=== PATIENT | female | born 1945 | race Caucasian/White ===

== ENCOUNTER 2017-06-30 14:05 | Inpatient (IN) ==
[2017-06-30 15:42] LABS: Basophils # 0.1 10*3/uL (0.0-0.2); Basophils % 0.7 % (0.0-0.8); Eosinophils # 0.4 10*3/uL (0.0-0.87); Eosinophils % 4.1 % (0.00-10.9); Hematocrit 26.5 VOL% (35.7-47.0); Hemoglobin 9.1 GM/DL (12.0-16.0); Immature Granulocytes % 0.5 %; Immature Granulocytes Absolute 0.05 #; Lymphocytes # 0.7 10*3/uL (1.4-4.0); Lymphocytes % 6.5 % (21.3-54.2); Mean Corpuscular HGB Conc 34.3 GM/DL (32-36); Mean Corpuscular Hemoglobin 32 PG (27-34); Mean Corpuscular Volume 91.7 FL (87-102); Mean Platelet Volume 11.2 FL (9.6-12.0); Monocytes # 0.8 10*3/uL (0.11-0.8); Monocytes % 7.5 % (1.7-12.7); Neutrophils # 8.2 10*3/uL (1.4-7.4); Neutrophils % 80.7 % (38.7-73.9); Platelet Count 257 T/CUMM (130-400); Red Blood Count 2.89 MC/CUMM (3.8-5.5); Red Cell Distribution Width 14.9 % (9.3-17.3); White Blood Count 10.1 T/CUMM (4-12)
[2017-06-30 15:50] LABS: INR 2.2
[2017-06-30 15:55] LABS: PT Patient Result 22.7 SECS
[2017-06-30 16:30] LABS: Albumin 3.9 G/DL (3.4-5.0); Bilirubin,Total 0.4 MG/DL (0.2-1.0); Calcium 8.5 MG/DL (8.5-10.1); Osmolality,Calculated 340.1 MOS/KG (273-304); Total Protein 7.3 G/DL (6.4-8.3)
[2017-06-30] MEDS ORDERED: SODIUM CHLORIDE 0.9% 1,000 ML IV STA (16:37)
[2017-06-30] MEDS ORDERED: ONDANSETRON 4 MG/2 ML VIAL IV PRN (17:54)
[2017-06-30] MEDS ORDERED: SODIUM CHLORIDE 0.9% 1,000 ML IV SCH (18:30)
[2017-06-30] MEDS: ACETAMINOPHEN 325 MG TABLET PO PRN (21:09)
[2017-06-30] MEDS: SODIUM POLYSTYRENE SULFATE 15 GM/60 ML BOTTLE PO SCH (21:28)
[2017-06-30] MEDS: TIMOLOL 0.5% OPH SOLN 5 ML BOTTLE BOTH EYES SCH (22:50)
[2017-06-30] MEDS ORDERED: SODIUM BICARBONATE 650 MG TABLET PO ONE (23:00)
[2017-06-30] MEDS: PREGABALIN 25 MG CAPSULE PO SCH (23:10)
[2017-06-30] MEDS: INSULIN REGULAR 100 UNIT/ML SUBCUT SCH (23:34)
[2017-07-01] MEDS: ACETAMINOPHEN 325 MG TABLET PO PRN (01:26)
[2017-07-01] MEDS: SODIUM POLYSTYRENE SULFATE 15 GM/60 ML BOTTLE PO SCH ×3 (03:10→18:46)
[2017-07-01 04:40] LABS: INR 2.3
[2017-07-01 04:45] LABS: PT Patient Result 23.1 SECS
[2017-07-01 05:16] LABS: Albumin 3.4 G/DL (3.4-5.0); Bilirubin,Total 0.8 MG/DL (0.2-1.0); Calcium 8.3 MG/DL (8.5-10.1); Magnesium 3.3 MG/DL (1.8-2.4); Osmolality,Calculated 334.3 MOS/KG (273-304); Potassium 5.7 MMOL/L (3.5-5.1); Thyroid Stimulating Hormone 7.53 uIU/ml (0.358-3.74); Total Protein 6.3 G/DL (6.4-8.3)
[2017-07-01] MEDS: LEVOTHYROXINE 200 MCG TABLET PO SCH (06:13)
[2017-07-01] MEDS ORDERED: FUROSEMIDE 40 MG TABLET PO SCH (08:00)
[2017-07-01] MEDS: INSULIN REGULAR 100 UNIT/ML SUBCUT SCH ×4 (08:23→21:40)
[2017-07-01] MEDS: ALLOPURINOL 300 MG TABLET PO SCH (08:45)
[2017-07-01] MEDS: ATORVASTATIN 40 MG TABLET PO SCH (08:46)
[2017-07-01] MEDS: PREGABALIN 25 MG CAPSULE PO SCH ×2 (08:47→21:40)
[2017-07-01] MEDS: SODIUM BICARBONATE 650 MG TABLET PO SCH ×3 (08:48→21:40)
[2017-07-01] MEDS: ASPIRIN EC 81 MG TABLET PO SCH (08:48)
[2017-07-01] MEDS: amLODIPine 5 MG TABLET PO SCH (08:49)
[2017-07-01] MEDS ORDERED: ZINC OXIDE PASTE 113 GM TUBE TOP PRN (15:08)
[2017-07-01] MEDS: FUROSEMIDE 40 MG/4 ML VIAL IV SCH (16:53)
[2017-07-01] MEDS: WARFARIN 3 MG TABLET PO SCH (18:20)
[2017-07-01] MEDS: TIMOLOL 0.5% OPH SOLN 5 ML BOTTLE BOTH EYES SCH (21:40)
[2017-07-02 04:26] LABS: Basophils # 0.1 10*3/uL (0.0-0.2); Basophils % 0.7 % (0.0-0.8); Eosinophils # 0.5 10*3/uL (0.0-0.87); Eosinophils % 5.2 % (0.00-10.9); Hematocrit 24.2 VOL% (35.7-47.0); Hemoglobin 8.3 GM/DL (12.0-16.0); Immature Granulocytes % 0.3 %; Immature Granulocytes Absolute 0.03 #; Lymphocytes # 0.9 10*3/uL (1.4-4.0); Lymphocytes % 9.9 % (21.3-54.2); Mean Corpuscular HGB Conc 34.3 GM/DL (32-36); Mean Corpuscular Hemoglobin 31 PG (27-34); Mean Corpuscular Volume 91.7 FL (87-102); Mean Platelet Volume 11.6 FL (9.6-12.0); Monocytes # 1.2 10*3/uL (0.11-0.8); Monocytes % 13.5 % (1.7-12.7); Neutrophils # 6.2 10*3/uL (1.4-7.4); Neutrophils % 70.4 % (38.7-73.9); Platelet Count 238 T/CUMM (130-400); Red Blood Count 2.64 MC/CUMM (3.8-5.5); Red Cell Distribution Width 15.1 % (9.3-17.3); White Blood Count 8.8 T/CUMM (4-12)
[2017-07-02 05:03] LABS: Calcium 8.3 MG/DL (8.5-10.1); Potassium 5.3 MMOL/L (3.5-5.1)
[2017-07-02] MEDS: LEVOTHYROXINE 200 MCG TABLET PO SCH (07:12)
[2017-07-02] MEDS: INSULIN REGULAR 100 UNIT/ML SUBCUT SCH ×4 (08:59→21:56)
[2017-07-02] MEDS: FUROSEMIDE 40 MG/4 ML VIAL IV SCH ×2 (09:17→17:51)
[2017-07-02] MEDS: SODIUM BICARBONATE 650 MG TABLET PO SCH ×3 (09:23→21:56)
[2017-07-02] MEDS: PREGABALIN 25 MG CAPSULE PO SCH ×2 (09:24→21:56)
[2017-07-02] MEDS: ALLOPURINOL 300 MG TABLET PO SCH (09:24)
[2017-07-02] MEDS: amLODIPine 5 MG TABLET PO SCH (09:25)
[2017-07-02] MEDS: ATORVASTATIN 40 MG TABLET PO SCH (09:26)
[2017-07-02] MEDS: ASPIRIN EC 81 MG TABLET PO SCH (09:26)
[2017-07-02] MEDS: WARFARIN 3 MG TABLET PO SCH (17:44)
[2017-07-02] MEDS: TIMOLOL 0.5% OPH SOLN 5 ML BOTTLE BOTH EYES SCH (21:55)
[2017-07-03 06:31] LABS: Basophils # 0.1 10*3/uL (0.0-0.2); Basophils % 0.7 % (0.0-0.8); Eosinophils # 0.6 10*3/uL (0.0-0.87); Eosinophils % 6.2 % (0.00-10.9); Hematocrit 24.5 VOL% (35.7-47.0); Hemoglobin 8.3 GM/DL (12.0-16.0); Immature Granulocytes % 0.4 %; Immature Granulocytes Absolute 0.04 #; Lymphocytes # 0.9 10*3/uL (1.4-4.0); Mean Corpuscular HGB Conc 33.9 GM/DL (32-36); Mean Corpuscular Hemoglobin 31 PG (27-34); Mean Corpuscular Volume 92.1 FL (87-102); Mean Platelet Volume 11.5 FL (9.6-12.0); Monocytes # 1.2 10*3/uL (0.11-0.8); Monocytes % 13.4 % (1.7-12.7); Neutrophils # 6.2 10*3/uL (1.4-7.4); Neutrophils % 69.3 % (38.7-73.9); Platelet Count 244 T/CUMM (130-400); Red Blood Count 2.66 MC/CUMM (3.8-5.5); Red Cell Distribution Width 15.1 % (9.3-17.3)
[2017-07-03] MEDS: LEVOTHYROXINE 200 MCG TABLET PO SCH (06:32)
[2017-07-03 06:51] LABS: Calcium 8.6 MG/DL (8.5-10.1); INR 1.8; PT Patient Result 18.6 SECS; Potassium 5.2 MMOL/L (3.5-5.1)
[2017-07-03] MEDS: ASPIRIN EC 81 MG TABLET PO SCH (08:26)
[2017-07-03] MEDS: ALLOPURINOL 300 MG TABLET PO SCH (08:26)
[2017-07-03] MEDS: PREGABALIN 25 MG CAPSULE PO SCH ×2 (08:26→21:07)
[2017-07-03] MEDS: SODIUM BICARBONATE 650 MG TABLET PO SCH ×3 (08:26→21:06)
[2017-07-03] MEDS: amLODIPine 5 MG TABLET PO SCH (08:26)
[2017-07-03] MEDS: ATORVASTATIN 40 MG TABLET PO SCH (08:26)
[2017-07-03] MEDS: INSULIN REGULAR 100 UNIT/ML SUBCUT SCH ×4 (08:27→21:07)
[2017-07-03] MEDS: FUROSEMIDE 40 MG/4 ML VIAL IV SCH ×2 (08:28→17:24)
[2017-07-03 11:04] LABS: Basophils # 0.1 10*3/uL (0.0-0.2); Basophils % 0.9 % (0.0-0.8); Eosinophils # 0.5 10*3/uL (0.0-0.87); Eosinophils % 5.9 % (0.00-10.9); Hematocrit 23.5 VOL% (35.7-47.0); Hemoglobin 7.9 GM/DL (12.0-16.0); Immature Granulocytes % 0.5 %; Immature Granulocytes Absolute 0.04 #; Lymphocytes # 0.7 10*3/uL (1.4-4.0); Lymphocytes % 7.7 % (21.3-54.2); Mean Corpuscular HGB Conc 33.6 GM/DL (32-36); Mean Corpuscular Hemoglobin 32 PG (27-34); Mean Corpuscular Volume 94.4 FL (87-102); Monocytes # 1.2 10*3/uL (0.11-0.8); Monocytes % 13.4 % (1.7-12.7); Neutrophils # 6.3 10*3/uL (1.4-7.4); Neutrophils % 71.6 % (38.7-73.9); Platelet Count 231 T/CUMM (130-400); Red Blood Count 2.49 MC/CUMM (3.8-5.5); Red Cell Distribution Width 15.2 % (9.3-17.3); White Blood Count 8.8 T/CUMM (4-12)
[2017-07-03] MEDS ORDERED: SODIUM POLYSTYRENE SULFATE 15 GM/60 ML BOTTLE PO STA (11:18)
[2017-07-03 12:05] LABS: Folate 11.7 NG/ML (5.4-24.0); Vitamin B12 629 PG/ML (211-911)
[2017-07-03 13:33] LABS: Sedimentation Rate-Westergren 90 MM/HR (0-30)
[2017-07-03] MEDS: WARFARIN 3 MG TABLET PO SCH (17:30)
[2017-07-03] MEDS: TIMOLOL 0.5% OPH SOLN 5 ML BOTTLE BOTH EYES SCH (21:07)
[2017-07-04 04:43] LABS: Basophils # 0.1 10*3/uL (0.0-0.2); Eosinophils # 0.6 10*3/uL (0.0-0.87); Eosinophils % 6.9 % (0.00-10.9); Hematocrit 26.1 VOL% (35.7-47.0); Hemoglobin 8.8 GM/DL (12.0-16.0); Immature Granulocytes % 0.4 %; Immature Granulocytes Absolute 0.04 #; Lymphocytes # 0.9 10*3/uL (1.4-4.0); Lymphocytes % 9.5 % (21.3-54.2); Mean Corpuscular HGB Conc 33.7 GM/DL (32-36); Mean Corpuscular Hemoglobin 32 PG (27-34); Mean Corpuscular Volume 93.5 FL (87-102); Mean Platelet Volume 11.5 FL (9.6-12.0); Monocytes # 1.3 10*3/uL (0.11-0.8); Monocytes % 13.8 % (1.7-12.7); Neutrophils # 6.3 10*3/uL (1.4-7.4); Neutrophils % 68.4 % (38.7-73.9); Platelet Count 242 T/CUMM (130-400); Red Blood Count 2.79 MC/CUMM (3.8-5.5); Red Cell Distribution Width 15.2 % (9.3-17.3); White Blood Count 9.3 T/CUMM (4-12)
[2017-07-04 04:46] LABS: INR 1.7; PT Patient Result 17.9 SECS
[2017-07-04 05:08] LABS: Calcium 8.8 MG/DL (8.5-10.1); Magnesium 2.8 MG/DL (1.8-2.4); Osmolality,Calculated 323.7 MOS/KG (273-304); Potassium 5.1 MMOL/L (3.5-5.1)
[2017-07-04] MEDS: LEVOTHYROXINE 200 MCG TABLET PO SCH (06:46)
[2017-07-04] MEDS: INSULIN REGULAR 100 UNIT/ML SUBCUT SCH ×2 (09:52→13:53)
[2017-07-04] MEDS: FUROSEMIDE 40 MG/4 ML VIAL IV SCH (09:52)
[2017-07-04] MEDS: amLODIPine 5 MG TABLET PO SCH (09:53)
[2017-07-04] MEDS: ASPIRIN EC 81 MG TABLET PO SCH (09:53)
[2017-07-04] MEDS: ALLOPURINOL 300 MG TABLET PO SCH (09:53)
[2017-07-04] MEDS: ATORVASTATIN 40 MG TABLET PO SCH (09:53)
[2017-07-04] MEDS: PREGABALIN 25 MG CAPSULE PO SCH (09:53)
[2017-07-04] MEDS: SODIUM BICARBONATE 650 MG TABLET PO SCH (09:53)
[2017-07-04 12:25] VITALS: BP 120/43
[2017-07-06 08:09] LABS: Hemoglobin A1 (Alkaline) 97.6 % (96.5-98.5); Hemoglobin A2 (Alkaline) 2.4 % (1.5-3.5)
== END 2017-07-04 15:39 | disposition home health service (06) | DRG 641 ==
LOC: N.ED 14:05 → SUATTDRO 16:45 → N.EDINP 16:45 → N.3E 18:22
PROVIDERS: ADMIT Internal Medicine; ATTEND Internal Medicine

== ENCOUNTER 2017-08-01 07:45 | Inpatient (IN) ==
[2017-08-01] MEDS ORDERED: DEXTROSE 50% 25 GM/50 ML VIAL IV PRN (13:05)
[2017-08-01] MEDS ORDERED: GLUCAGON 1 MG VIAL IM PRN (13:05)
[2017-08-01 13:47] LABS: Basophils # 0.1 10*3/uL (0.0-0.2); Basophils % 0.4 % (0.0-0.8); Eosinophils # 0.1 10*3/uL (0.0-0.87); Eosinophils % 0.8 % (0.00-10.9); Hematocrit 24.5 VOL% (35.7-47.0); Immature Granulocytes % 1.4 %; Immature Granulocytes Absolute 0.23 #; Lymphocytes # 0.6 10*3/uL (1.4-4.0); Lymphocytes % 3.7 % (21.3-54.2); Mean Corpuscular HGB Conc 32.7 GM/DL (32-36); Mean Corpuscular Hemoglobin 30 PG (27-34); Mean Corpuscular Volume 92.5 FL (87-102); Monocytes # 1.6 10*3/uL (0.11-0.8); Monocytes % 9.5 % (1.7-12.7); NRBC # 0.02 10*3/uL; Neutrophils # 14.2 10*3/uL (1.4-7.4); Neutrophils % 84.2 % (38.7-73.9); Platelet Count 360 T/CUMM (130-400); Red Blood Count 2.65 MC/CUMM (3.8-5.5); Red Cell Distribution Width 14.5 % (9.3-17.3); White Blood Count 16.8 T/CUMM (4-12)
[2017-08-01 14:31] LABS: Eosinophils 2 % (0-10); Lymphocytes 2 % (20-55); Platelet Estimate Normal; Segmented Neutrophils 91 % (50-85); Total Cells Counted 100
[2017-08-01 14:32] LABS: Burr Cells Few; Hypochromasia Slight; Poikilocytosis Slight; Tear Drop Cells Few
[2017-08-01 14:35] LABS: Albumin 3.3 G/DL (3.4-5.0); Bilirubin,Total 0.5 MG/DL (0.2-1.0); Calcium 8.4 MG/DL (8.5-10.1); Osmolality,Calculated 303.1 MOS/KG (273-304); Potassium 4.8 MMOL/L (3.5-5.1); Thyroid Stimulating Hormone 5.55 uIU/ml (0.358-3.74); Total Protein 6.9 G/DL (6.4-8.3)
[2017-08-01 16:47] LABS: Apearance,Urine CLOUDY (Clear); Bacteria,Urine Many /HPF (Few); Bilirubin,Urine Negative (Negative); Blood, Urine Small mg/dL (Negative); Glucose,Urine (UA) Negative (Negative); Hyaline Casts,Urine 33 /LPF (0-3); Ketones,Urine Negative (Negative); Mucus,Urine Occasional /LPF (Occasional); Nitrite,Urine Negative (Negative); Protein,Urine Negative; RBC,Urine 13 /HPF (0-4); Squamous Epithelial Cell,Urine Many /HPF (0-10); Urine Color Amber (Yellow); Urine Specific Gravity 1.014 (1.001-1.035); WBC,Urine 46 /HPF (0-6)
[2017-08-01] MEDS: CEFEPIME 1,000 MG in SYRINGE 1 EACH IV SCH (17:24)
[2017-08-01] MEDS: LINEZOLID INJ 600 MG in PREMIX 1 EACH IV SCH (17:29)
[2017-08-01] MEDS: FUROSEMIDE 40 MG/4 ML VIAL IV SCH (18:23)
[2017-08-01] MEDS: INSULIN LISPRO 100 UNIT/ML SUBCUT SCH ×2 (18:23→20:49)
[2017-08-01] MEDS: ACETAMINOPHEN 325 MG TABLET PO PRN (20:40)
[2017-08-01] MEDS: metOLazone 5 MG TABLET PO SCH (20:40)
[2017-08-02] MEDS: FUROSEMIDE 40 MG/4 ML VIAL IV SCH ×4 (01:20→17:30)
[2017-08-02] MEDS: ONDANSETRON 4 MG/2 ML VIAL IV PRN (02:35)
[2017-08-02] MEDS: ACETAMINOPHEN 325 MG TABLET PO PRN ×4 (05:25→23:03)
[2017-08-02 06:05] LABS: Basophils # 0.1 10*3/uL (0.0-0.2); Basophils % 0.4 % (0.0-0.8); Eosinophils # 0.2 10*3/uL (0.0-0.87); Hemoglobin 8.6 GM/DL (12.0-16.0); Immature Granulocytes Absolute 0.18 #; Lymphocytes # 0.9 10*3/uL (1.4-4.0); Lymphocytes % 4.6 % (21.3-54.2); Mean Corpuscular HGB Conc 34.4 GM/DL (32-36); Mean Corpuscular Hemoglobin 31 PG (27-34); Mean Corpuscular Volume 89.9 FL (87-102); Mean Platelet Volume 11.2 FL (9.6-12.0); Monocytes # 2.1 10*3/uL (0.11-0.8); Monocytes % 11.1 % (1.7-12.7); NRBC # 0.04 10*3/uL; Neutrophils # 15.2 10*3/uL (1.4-7.4); Neutrophils % 81.9 % (38.7-73.9); Platelet Count 382 T/CUMM (130-400); Red Blood Count 2.78 MC/CUMM (3.8-5.5); Red Cell Distribution Width 14.5 % (9.3-17.3); White Blood Count 18.5 T/CUMM (4-12)
[2017-08-02 06:39] LABS: Calcium 8.6 MG/DL (8.5-10.1); Osmolality,Calculated 300.7 MOS/KG (273-304); Potassium 5.1 MMOL/L (3.5-5.1)
[2017-08-02] MEDS: LINEZOLID INJ 600 MG in PREMIX 1 EACH IV SCH ×2 (06:40→17:40)
[2017-08-02] MEDS: INSULIN LISPRO 100 UNIT/ML SUBCUT SCH ×4 (07:45→20:43)
[2017-08-02] MEDS: metOLazone 5 MG TABLET PO SCH ×2 (10:18→20:43)
[2017-08-02 11:38] LABS: Amorphous Crystals,Urine Moderate /HPF (Few); Apearance,Urine CLOUDY (Clear); Bacteria,Urine Many /HPF (Few); Bilirubin,Urine Negative (Negative); Blood, Urine Moderate mg/dL (Negative); Glucose,Urine (UA) 150 mg/dL (Negative); Hyaline Casts,Urine 26 /LPF (0-3); Ketones,Urine 5 mg/dL (Negative); Mucus,Urine Occasional /LPF (Occasional); Nitrite,Urine Negative (Negative); Protein,Urine >=500 MG/DL; Urine Color Amber (Yellow); Urine Specific Gravity 1.017 (1.001-1.035); Urine Urobilinogen < 2.0 EU/DL (0.2-1.0)
[2017-08-02] MEDS: PREGABALIN 25 MG CAPSULE PO SCH ×2 (12:10→20:43)
[2017-08-02] MEDS: HEPARIN 5,000 UNIT/1 ML VIAL SUBCUT SCH ×2 (12:10→17:41)
[2017-08-02] MEDS: SODIUM CHLORIDE 0.9% 1,000 ML IV SCH ×2 (12:10→22:49)
[2017-08-02] MEDS: CEFEPIME 1,000 MG in SYRINGE 1 EACH IV SCH (17:19)
[2017-08-02] MEDS: OXYBUTYNIN 5 MG TABLET PO SCH (20:43)
[2017-08-03] MEDS: FUROSEMIDE 40 MG/4 ML VIAL IV SCH ×5 (00:43→22:22)
[2017-08-03] MEDS: HEPARIN 5,000 UNIT/1 ML VIAL SUBCUT SCH ×3 (02:35→22:17)
[2017-08-03] MEDS ORDERED: MAGNESIUM HYDROXIDE SUSP 30 ML UDCUP PO PRN (04:55)
[2017-08-03] MEDS: LINEZOLID INJ 600 MG in PREMIX 1 EACH IV SCH ×2 (05:16→18:41)
[2017-08-03 05:28] LABS: Basophils % 0.1 % (0.0-0.8); Eosinophils % 0.1 % (0.00-10.9); Hematocrit 24.7 VOL% (35.7-47.0); Hemoglobin 8.5 GM/DL (12.0-16.0); Immature Granulocytes % 1.6 %; Immature Granulocytes Absolute 0.32 #; Lymphocytes # 0.6 10*3/uL (1.4-4.0); Lymphocytes % 3.1 % (21.3-54.2); Mean Corpuscular HGB Conc 34.4 GM/DL (32-36); Mean Corpuscular Hemoglobin 31 PG (27-34); Mean Corpuscular Volume 89.5 FL (87-102); Mean Platelet Volume 11.4 FL (9.6-12.0); Monocytes # 1.8 10*3/uL (0.11-0.8); Monocytes % 8.5 % (1.7-12.7); NRBC # 0.06 10*3/uL; Neutrophils # 17.8 10*3/uL (1.4-7.4); Neutrophils % 86.6 % (38.7-73.9); Platelet Count 341 T/CUMM (130-400); Red Blood Count 2.76 MC/CUMM (3.8-5.5); Red Cell Distribution Width 14.8 % (9.3-17.3); White Blood Count 20.6 T/CUMM (4-12)
[2017-08-03 06:03] LABS: Calcium 8.3 MG/DL (8.5-10.1); Osmolality,Calculated 309.8 MOS/KG (273-304); Potassium 5.7 MMOL/L (3.5-5.1)
[2017-08-03 06:05] LABS: Calcium 8.1 MG/DL (8.5-10.1); Osmolality,Calculated 302.1 MOS/KG (273-304); Potassium 5.9 MMOL/L (3.5-5.1)
[2017-08-03 06:43] LABS: Band Neutrophils 3 % (0-10); Lymphocytes 9 % (20-55); Segmented Neutrophils 83 % (50-85); Total Cells Counted 100
[2017-08-03 06:44] LABS: Burr Cells 1+; Platelet Estimate Normal
[2017-08-03] MEDS ORDERED: NYSTATIN POWDER 15 GM BOTTLE TOP SCH (09:00)
[2017-08-03] MEDS: SODIUM BICARB INJ 150 MEQ in STERILE WATER INJ 1,000 ML IV SCH (10:11)
[2017-08-03] MEDS: PREGABALIN 25 MG CAPSULE PO SCH ×2 (10:16→22:34)
[2017-08-03] MEDS: SIMETHICONE CHEW 80 MG TABLET PO PRN ×2 (10:17→17:05)
[2017-08-03] MEDS: INSULIN LISPRO 100 UNIT/ML SUBCUT SCH ×4 (10:18→22:18)
[2017-08-03] MEDS: OXYBUTYNIN 5 MG TABLET PO SCH ×2 (10:19→22:15)
[2017-08-03] MEDS: metOLazone 5 MG TABLET PO SCH (10:23)
[2017-08-03] MEDS: ONDANSETRON 4 MG/2 ML VIAL IV PRN (12:51)
[2017-08-03] MEDS: SODIUM CHLORIDE 0.9% 1,000 ML IV SCH (13:38)
[2017-08-03] MEDS: CLOTRIMAZOLE/BETAMETHASONE CREAM 15 GM TUBE TOP SCH ×2 (15:25→22:29)
[2017-08-03] MEDS: ALPRAZolam 0.25 MG TABLET PO SCH (15:26)
[2017-08-03] MEDS: ACETAMINOPHEN 325 MG TABLET PO PRN (17:05)
[2017-08-03] MEDS ORDERED: SODIUM POLYSTYRENE SULFATE 15 GM/60 ML BOTTLE PO ONE (18:22)
[2017-08-03] MEDS: CEFEPIME 1,000 MG in SYRINGE 1 EACH IV SCH (18:42)
[2017-08-03] MEDS ORDERED: FUROSEMIDE 100 MG/10 ML VIAL ONE (21:47)
[2017-08-04] MEDS: ACETAMINOPHEN 325 MG TABLET PO PRN
[2017-08-04] MEDS: SODIUM BICARB INJ 150 MEQ in STERILE WATER INJ 1,000 ML IV SCH (02:19)
[2017-08-04] MEDS: HEPARIN 5,000 UNIT/1 ML VIAL SUBCUT SCH ×3 (03:53→19:55)
[2017-08-04 05:12] LABS: Basophils % 0.1 % (0.0-0.8); Hematocrit 24.4 VOL% (35.7-47.0); Hemoglobin 7.9 GM/DL (12.0-16.0); Immature Granulocytes % 1.6 %; Immature Granulocytes Absolute 0.32 #; Lymphocytes # 0.5 10*3/uL (1.4-4.0); Lymphocytes % 2.3 % (21.3-54.2); Mean Corpuscular HGB Conc 32.4 GM/DL (32-36); Mean Corpuscular Hemoglobin 30 PG (27-34); Mean Corpuscular Volume 92.1 FL (87-102); Mean Platelet Volume 11.3 FL (9.6-12.0); Monocytes # 1.4 10*3/uL (0.11-0.8); Monocytes % 6.8 % (1.7-12.7); NRBC # 0.13 10*3/uL; Neutrophils # 18.3 10*3/uL (1.4-7.4); Neutrophils % 89.2 % (38.7-73.9); Platelet Count 335 T/CUMM (130-400); Red Blood Count 2.65 MC/CUMM (3.8-5.5); Red Cell Distribution Width 14.7 % (9.3-17.3); White Blood Count 20.5 T/CUMM (4-12)
[2017-08-04 05:39] LABS: Calcium 7.7 MG/DL (8.5-10.1); Osmolality,Calculated 312.9 MOS/KG (273-304); Potassium 5.5 MMOL/L (3.5-5.1)
[2017-08-04 05:43] LABS: Band Neutrophils 2 % (0-10); Lymphocytes 1 % (20-55); Myelocytes 2 %; Segmented Neutrophils 94 % (50-85); Total Cells Counted 100
[2017-08-04 05:44] LABS: Acanthocytes Few; Anisocytosis 1+; Hypochromasia 1+; Platelet Estimate Normal
[2017-08-04] MEDS: LINEZOLID INJ 600 MG in PREMIX 1 EACH IV SCH ×2 (06:23→19:44)
[2017-08-04] MEDS: INSULIN LISPRO 100 UNIT/ML SUBCUT SCH ×4 (09:25→22:09)
[2017-08-04] MEDS: OXYBUTYNIN 5 MG TABLET PO SCH ×2 (09:27→22:08)
[2017-08-04] MEDS: ALPRAZolam 0.25 MG TABLET PO SCH (09:28)
[2017-08-04] MEDS: PREGABALIN 25 MG CAPSULE PO SCH ×2 (09:28→22:08)
[2017-08-04] MEDS: CLOTRIMAZOLE/BETAMETHASONE CREAM 15 GM TUBE TOP SCH ×2 (09:28→23:34)
[2017-08-04] MEDS: metOLazone 5 MG TABLET PO SCH (09:30)
[2017-08-04] MEDS: FUROSEMIDE 40 MG/4 ML VIAL IV SCH ×3 (09:36→21:38)
[2017-08-04] MEDS ORDERED: ceFAZolin 1,000 MG in SYRINGE 1 EACH IV ONE (10:30)
[2017-08-04 13:51] LABS: Hepatitis A Ab IgM Quant 0.14 Index; Hepatitis A Ab IgM Result Negative (Negative); Hepatitis B Core IgM Quant 0.11 Index; Hepatitis B Core IgM Result Negative (Negative); Hepatitis B Surface Ag Quant 0.13 Index; Hepatitis B Surface Ag Result Negative (Negative); Hepatitis C Virus Ab Quant 0.15 Index; Hepatitis C Virus Ab Result Negative (Negative)
[2017-08-04] MEDS: MEROPENEM 500 MG in SYRINGE 1 EACH IV SCH (16:47)
[2017-08-04] MEDS ORDERED: ceFAZolin 1,000 MG VIAL ONE (17:43)
[2017-08-04] MEDS ORDERED: fentaNYL 100 MCG/2 ML VIAL ONE (17:59)
[2017-08-04] MEDS ORDERED: MIDAZOLAM 2 MG/2 ML VIAL ONE (17:59)
[2017-08-04] MEDS ORDERED: SODIUM CHLORIDE 0.9% 250 ML IV ONE (18:20)
[2017-08-04] MEDS ORDERED: FUROSEMIDE 100 MG/10 ML VIAL IV SCH (21:45)
[2017-08-05] MEDS: ACETAMINOPHEN 325 MG TABLET PO PRN (01:13)
[2017-08-05] MEDS ORDERED: MORPHINE 2 MG/1 ML SYRINGE IV PRN (02:06)
[2017-08-05] MEDS ORDERED: MORPHINE 2 MG/1 ML SYRINGE ONE (02:09)
[2017-08-05] MEDS: HEPARIN 5,000 UNIT/1 ML VIAL SUBCUT SCH ×3 (03:05→18:22)
[2017-08-05 04:44] LABS: Basophils % 0.1 % (0.0-0.8); Eosinophils # 0.1 10*3/uL (0.0-0.87); Eosinophils % 0.3 % (0.00-10.9); Hematocrit 25.2 VOL% (35.7-47.0); Immature Granulocytes % 1.5 %; Immature Granulocytes Absolute 0.28 #; Lymphocytes # 0.5 10*3/uL (1.4-4.0); Lymphocytes % 2.4 % (21.3-54.2); Mean Corpuscular HGB Conc 31.7 GM/DL (32-36); Mean Corpuscular Hemoglobin 29 PG (27-34); Mean Corpuscular Volume 92.6 FL (87-102); Mean Platelet Volume 11.7 FL (9.6-12.0); Monocytes # 1.8 10*3/uL (0.11-0.8); Monocytes % 9.1 % (1.7-12.7); NRBC # 0.26 10*3/uL; Neutrophils # 16.7 10*3/uL (1.4-7.4); Neutrophils % 86.6 % (38.7-73.9); Platelet Count 304 T/CUMM (130-400); Red Blood Count 2.72 MC/CUMM (3.8-5.5); Red Cell Distribution Width 15.3 % (9.3-17.3); White Blood Count 19.3 T/CUMM (4-12)
[2017-08-05 05:03] LABS: Calcium 7.6 MG/DL (8.5-10.1); Osmolality,Calculated 310.9 MOS/KG (273-304); Potassium 5.4 MMOL/L (3.5-5.1)
[2017-08-05 05:27] LABS: Lymphocytes 5 % (20-55); Nucleated Red Blood Cells 3 (0-5); Platelet Estimate Adequate; Segmented Neutrophils 86 % (50-85); Total Cells Counted 100
[2017-08-05 05:28] LABS: Burr Cells Few; Polychromasia Slight; Target Cells Slight
[2017-08-05] MEDS: LINEZOLID INJ 600 MG in PREMIX 1 EACH IV SCH ×2 (06:03→18:08)
[2017-08-05] MEDS: ALPRAZolam 0.25 MG TABLET PO SCH (09:05)
[2017-08-05] MEDS: metOLazone 5 MG TABLET PO SCH (09:05)
[2017-08-05] MEDS: OXYBUTYNIN 5 MG TABLET PO SCH ×2 (09:05→20:51)
[2017-08-05] MEDS: INSULIN LISPRO 100 UNIT/ML SUBCUT SCH ×4 (09:06→20:51)
[2017-08-05] MEDS: PREGABALIN 25 MG CAPSULE PO SCH ×2 (09:57→20:51)
[2017-08-05] MEDS: NOREPINEPHRINE 8 MG in SODIUM CHLORIDE 0.9% 242 ML IV PRN (10:07)
[2017-08-05] MEDS ORDERED: HEPARIN 10,000 UNIT/10 ML VIAL IV ONE (10:30)
[2017-08-05] MEDS: CLOTRIMAZOLE/BETAMETHASONE CREAM 15 GM TUBE TOP SCH ×2 (18:07→20:53)
[2017-08-05] MEDS: MEROPENEM 500 MG in SYRINGE 1 EACH IV SCH (18:08)
[2017-08-06] MEDS: NOREPINEPHRINE 8 MG in SODIUM CHLORIDE 0.9% 242 ML IV PRN ×3 (01:24→19:10)
[2017-08-06] MEDS: HEPARIN 5,000 UNIT/1 ML VIAL SUBCUT SCH ×3 (02:29→19:11)
[2017-08-06] MEDS: ACETAMINOPHEN 325 MG TABLET PO PRN ×2 (03:57→21:14)
[2017-08-06] MEDS: LINEZOLID INJ 600 MG in PREMIX 1 EACH IV SCH (06:12)
[2017-08-06 09:32] LABS: Basophils % 0.2 % (0.0-0.8); Eosinophils # 0.1 10*3/uL (0.0-0.87); Eosinophils % 0.2 % (0.00-10.9); Hematocrit 26.4 VOL% (35.7-47.0); Hemoglobin 9.1 GM/DL (12.0-16.0); Immature Granulocytes % 2.4 %; Immature Granulocytes Absolute 0.56 #; Lymphocytes # 0.3 10*3/uL (1.4-4.0); Lymphocytes % 1.3 % (21.3-54.2); Mean Corpuscular HGB Conc 34.5 GM/DL (32-36); Mean Corpuscular Hemoglobin 31 PG (27-34); Mean Corpuscular Volume 88.6 FL (87-102); Mean Platelet Volume 10.9 FL (9.6-12.0); Monocytes % 8.6 % (1.7-12.7); NRBC # 1.15 10*3/uL; Neutrophils # 20.7 10*3/uL (1.4-7.4); Neutrophils % 87.3 % (38.7-73.9); Platelet Count 323 T/CUMM (130-400); Red Blood Count 2.98 MC/CUMM (3.8-5.5); Red Cell Distribution Width 15.5 % (9.3-17.3); White Blood Count 23.6 T/CUMM (4-12)
[2017-08-06 09:52] LABS: Eosinophils 1 % (0-10); Hypochromasia 2+; Lymphocytes 1 % (20-55); Nucleated Red Blood Cells 5 (0-5); Segmented Neutrophils 88 % (50-85); Target Cells Slight; Total Cells Counted 100
[2017-08-06 09:53] LABS: Microcytosis Slight; Polychromasia Slight
[2017-08-06 09:54] LABS: Burr Cells Slight
[2017-08-06 09:55] LABS: Acanthocytes Few
[2017-08-06 10:06] LABS: Calcium 7.5 MG/DL (8.5-10.1); Magnesium 2.6 MG/DL (1.8-2.4); Osmolality,Calculated 292.8 MOS/KG (273-304); Potassium 4.4 MMOL/L (3.5-5.1)
[2017-08-06] MEDS: PREGABALIN 25 MG CAPSULE PO SCH ×2 (10:06→20:23)
[2017-08-06] MEDS: metOLazone 5 MG TABLET PO SCH (10:06)
[2017-08-06] MEDS: ALPRAZolam 0.25 MG TABLET PO SCH (10:06)
[2017-08-06] MEDS: CLOTRIMAZOLE/BETAMETHASONE CREAM 15 GM TUBE TOP SCH ×2 (10:07→21:13)
[2017-08-06] MEDS: INSULIN LISPRO 100 UNIT/ML SUBCUT SCH ×4 (10:07→20:25)
[2017-08-06] MEDS: OXYBUTYNIN 5 MG TABLET PO SCH ×2 (10:09→20:24)
[2017-08-06] MEDS ORDERED: HYDROmorphone 2 MG/1 ML VIAL IV PRN (15:43)
[2017-08-06] MEDS: MEROPENEM 500 MG in SYRINGE 1 EACH IV SCH (19:10)
[2017-08-07] MEDS: HEPARIN 5,000 UNIT/1 ML VIAL SUBCUT SCH ×3 (02:16→18:11)
[2017-08-07] MEDS: INSULIN LISPRO 100 UNIT/ML SUBCUT SCH ×4 (08:15→21:07)
[2017-08-07] MEDS: PREGABALIN 25 MG CAPSULE PO SCH ×2 (08:49→21:07)
[2017-08-07] MEDS: ALPRAZolam 0.25 MG TABLET PO SCH (08:50)
[2017-08-07] MEDS: metOLazone 5 MG TABLET PO SCH (08:50)
[2017-08-07] MEDS: CLOTRIMAZOLE/BETAMETHASONE CREAM 15 GM TUBE TOP SCH ×2 (08:51→21:08)
[2017-08-07] MEDS: OXYBUTYNIN 5 MG TABLET PO SCH ×2 (08:51→21:07)
[2017-08-07] MEDS: MEROPENEM 500 MG in SYRINGE 1 EACH IV SCH (18:00)
[2017-08-07] MEDS: MUPIROCIN 2% OINT 22 GM TUBE TOP SCH (21:07)
[2017-08-08] MEDS: HEPARIN 5,000 UNIT/1 ML VIAL SUBCUT SCH ×3 (03:08→18:40)
[2017-08-08 04:47] LABS: Basophils % 0.1 % (0.0-0.8); Eosinophils # 0.1 10*3/uL (0.0-0.87); Eosinophils % 0.5 % (0.00-10.9); Hematocrit 24.2 VOL% (35.7-47.0); Immature Granulocytes % 1.5 %; Lymphocytes # 0.6 10*3/uL (1.4-4.0); Lymphocytes % 4.8 % (21.3-54.2); Mean Corpuscular HGB Conc 33.1 GM/DL (32-36); Mean Corpuscular Hemoglobin 30 PG (27-34); Mean Corpuscular Volume 90.3 FL (87-102); Mean Platelet Volume 11.4 FL (9.6-12.0); Monocytes # 1.4 10*3/uL (0.11-0.8); Monocytes % 10.7 % (1.7-12.7); NRBC # 0.36 10*3/uL; Neutrophils # 10.9 10*3/uL (1.4-7.4); Neutrophils % 82.4 % (38.7-73.9); Platelet Count 194 T/CUMM (130-400); Red Blood Count 2.68 MC/CUMM (3.8-5.5); Red Cell Distribution Width 15.4 % (9.3-17.3); White Blood Count 13.2 T/CUMM (4-12)
[2017-08-08 05:20] LABS: Albumin 2.9 G/DL (3.4-5.0); Bilirubin,Total 0.7 MG/DL (0.2-1.0); Calcium 8.2 MG/DL (8.5-10.1); Magnesium 2.5 MG/DL (1.8-2.4); Osmolality,Calculated 291.4 MOS/KG (273-304); Potassium 4.3 MMOL/L (3.5-5.1); Total Protein 5.9 G/DL (6.4-8.3)
[2017-08-08 06:00] LABS: Hypochromasia 1+; Lymphocytes 6 % (20-55); Metamyelocytes 1 %; Microcytosis Slight; Nucleated Red Blood Cells 4 (0-5); Segmented Neutrophils 84 % (50-85); Total Cells Counted 100
[2017-08-08 06:01] LABS: Ovalocytes Slight; Target Cells Slight
[2017-08-08] MEDS: MUPIROCIN 2% OINT 22 GM TUBE TOP SCH ×3 (09:22→22:18)
[2017-08-08] MEDS: INSULIN LISPRO 100 UNIT/ML SUBCUT SCH ×4 (09:22→22:16)
[2017-08-08] MEDS: CLOTRIMAZOLE/BETAMETHASONE CREAM 15 GM TUBE TOP SCH ×2 (09:23→22:18)
[2017-08-08] MEDS: PREGABALIN 25 MG CAPSULE PO SCH ×2 (09:23→22:17)
[2017-08-08] MEDS: ALPRAZolam 0.25 MG TABLET PO SCH (09:23)
[2017-08-08] MEDS: MIDODRINE 5 MG TABLET PO SCH ×3 (09:24→22:17)
[2017-08-08] MEDS: metOLazone 5 MG TABLET PO SCH (09:24)
[2017-08-08] MEDS: OXYBUTYNIN 5 MG TABLET PO SCH ×2 (09:25→22:17)
[2017-08-08] MEDS: MEROPENEM 500 MG in SYRINGE 1 EACH IV SCH (18:22)
[2017-08-09] MEDS: HEPARIN 5,000 UNIT/1 ML VIAL SUBCUT SCH ×3 (03:13→17:30)
[2017-08-09 04:37] LABS: Basophils % 0.2 % (0.0-0.8); Eosinophils # 0.2 10*3/uL (0.0-0.87); Eosinophils % 1.7 % (0.00-10.9); Hematocrit 23.5 VOL% (35.7-47.0); Hemoglobin 7.9 GM/DL (12.0-16.0); Immature Granulocytes % 1.1 %; Immature Granulocytes Absolute 0.15 #; Lymphocytes # 0.7 10*3/uL (1.4-4.0); Lymphocytes % 5.2 % (21.3-54.2); Mean Corpuscular HGB Conc 33.6 GM/DL (32-36); Mean Corpuscular Hemoglobin 30 PG (27-34); Mean Corpuscular Volume 89.4 FL (87-102); Mean Platelet Volume 11.7 FL (9.6-12.0); Monocytes # 1.9 10*3/uL (0.11-0.8); Monocytes % 14.5 % (1.7-12.7); NRBC # 0.32 10*3/uL; Neutrophils # 10.3 10*3/uL (1.4-7.4); Neutrophils % 77.3 % (38.7-73.9); Platelet Count 163 T/CUMM (130-400); Red Blood Count 2.63 MC/CUMM (3.8-5.5); Red Cell Distribution Width 15.9 % (9.3-17.3); White Blood Count 13.3 T/CUMM (4-12)
[2017-08-09 05:40] LABS: Albumin 2.8 G/DL (3.4-5.0); Bilirubin,Total 1.1 MG/DL (0.2-1.0); Calcium 8.1 MG/DL (8.5-10.1); Magnesium 2.4 MG/DL (1.8-2.4); Potassium 4.2 MMOL/L (3.5-5.1); Total Protein 5.9 G/DL (6.4-8.3)
[2017-08-09] MEDS: PREGABALIN 25 MG CAPSULE PO SCH ×2 (09:19→21:16)
[2017-08-09] MEDS: OXYBUTYNIN 5 MG TABLET PO SCH ×2 (09:20→21:16)
[2017-08-09] MEDS: ALPRAZolam 0.25 MG TABLET PO SCH (09:20)
[2017-08-09] MEDS: MIDODRINE 5 MG TABLET PO SCH ×3 (09:20→21:16)
[2017-08-09] MEDS: metOLazone 5 MG TABLET PO SCH (09:20)
[2017-08-09] MEDS: INSULIN LISPRO 100 UNIT/ML SUBCUT SCH ×4 (09:22→21:18)
[2017-08-09] MEDS: MUPIROCIN 2% OINT 22 GM TUBE TOP SCH ×3 (09:24→21:19)
[2017-08-09] MEDS: CLOTRIMAZOLE/BETAMETHASONE CREAM 15 GM TUBE TOP SCH ×2 (09:25→21:19)
[2017-08-09] MEDS: MEROPENEM 500 MG in SYRINGE 1 EACH IV SCH (17:29)
[2017-08-10 02:34] LABS: Basophils % 0.2 % (0.0-0.8); Eosinophils # 0.2 10*3/uL (0.0-0.87); Eosinophils % 1.7 % (0.00-10.9); Hematocrit 23.4 VOL% (35.7-47.0); Hemoglobin 7.6 GM/DL (12.0-16.0); Immature Granulocytes % 1.2 %; Immature Granulocytes Absolute 0.15 #; Lymphocytes # 0.6 10*3/uL (1.4-4.0); Lymphocytes % 5.3 % (21.3-54.2); Mean Corpuscular HGB Conc 32.5 GM/DL (32-36); Mean Corpuscular Hemoglobin 30 PG (27-34); Mean Corpuscular Volume 90.7 FL (87-102); Mean Platelet Volume 11.9 FL (9.6-12.0); Monocytes # 1.7 10*3/uL (0.11-0.8); Monocytes % 14.2 % (1.7-12.7); NRBC # 0.31 10*3/uL; Neutrophils # 9.3 10*3/uL (1.4-7.4); Neutrophils % 77.4 % (38.7-73.9); Platelet Count 136 T/CUMM (130-400); Red Blood Count 2.58 MC/CUMM (3.8-5.5); Red Cell Distribution Width 15.9 % (9.3-17.3); White Blood Count 12.1 T/CUMM (4-12)
[2017-08-10] MEDS: HEPARIN 5,000 UNIT/1 ML VIAL SUBCUT SCH ×3 (03:00→17:44)
[2017-08-10 03:05] LABS: Albumin 2.6 G/DL (3.4-5.0); Bilirubin,Total 0.9 MG/DL (0.2-1.0); Calcium 8.1 MG/DL (8.5-10.1); Magnesium 2.4 MG/DL (1.8-2.4); Osmolality,Calculated 291.2 MOS/KG (273-304); Potassium 4.5 MMOL/L (3.5-5.1); Total Protein 5.8 G/DL (6.4-8.3)
[2017-08-10] MEDS: metOLazone 5 MG TABLET PO SCH (08:44)
[2017-08-10] MEDS: ALPRAZolam 0.25 MG TABLET PO SCH (08:44)
[2017-08-10] MEDS: MIDODRINE 5 MG TABLET PO SCH ×3 (08:44→22:42)
[2017-08-10] MEDS: OXYBUTYNIN 5 MG TABLET PO SCH ×2 (08:44→22:42)
[2017-08-10] MEDS: INSULIN LISPRO 100 UNIT/ML SUBCUT SCH ×4 (08:45→22:42)
[2017-08-10] MEDS: CLOTRIMAZOLE/BETAMETHASONE CREAM 15 GM TUBE TOP SCH ×2 (08:45→22:43)
[2017-08-10] MEDS: MUPIROCIN 2% OINT 22 GM TUBE TOP SCH ×3 (08:45→22:43)
[2017-08-10] MEDS: MEROPENEM 500 MG in SYRINGE 1 EACH IV SCH (16:47)
[2017-08-11] MEDS: ACETAMINOPHEN 325 MG TABLET PO PRN ×2 (01:09→21:57)
[2017-08-11] MEDS: HEPARIN 5,000 UNIT/1 ML VIAL SUBCUT SCH ×4 (03:48→17:34)
[2017-08-11] MEDS: metOLazone 5 MG TABLET PO SCH (08:54)
[2017-08-11] MEDS: OXYBUTYNIN 5 MG TABLET PO SCH ×2 (08:54→21:56)
[2017-08-11] MEDS: INSULIN LISPRO 100 UNIT/ML SUBCUT SCH ×4 (08:55→21:58)
[2017-08-11] MEDS: MUPIROCIN 2% OINT 22 GM TUBE TOP SCH ×3 (08:55→21:59)
[2017-08-11] MEDS: CLOTRIMAZOLE/BETAMETHASONE CREAM 15 GM TUBE TOP SCH ×2 (08:55→21:58)
[2017-08-11] MEDS: MIDODRINE 5 MG TABLET PO SCH ×3 (08:55→21:58)
[2017-08-11] MEDS: MEROPENEM 500 MG in SYRINGE 1 EACH IV SCH (15:31)
[2017-08-11] MEDS: ZINC OXIDE PASTE 113 GM TUBE TOP PRN (16:10)
[2017-08-12] MEDS: HEPARIN 5,000 UNIT/1 ML VIAL SUBCUT SCH ×3 (01:49→20:19)
[2017-08-12] MEDS: ACETAMINOPHEN 325 MG TABLET PO PRN (03:45)
[2017-08-12 06:10] LABS: Basophils % 0.2 % (0.0-0.8); Eosinophils # 0.4 10*3/uL (0.0-0.87); Hematocrit 23.8 VOL% (35.7-47.0); Hemoglobin 7.7 GM/DL (12.0-16.0); Immature Granulocytes % 2.5 %; Immature Granulocytes Absolute 0.45 #; Lymphocytes # 0.9 10*3/uL (1.4-4.0); Lymphocytes % 5.3 % (21.3-54.2); Mean Corpuscular HGB Conc 32.4 GM/DL (32-36); Mean Corpuscular Hemoglobin 30 PG (27-34); Mean Platelet Volume 12.5 FL (9.6-12.0); Monocytes # 3.2 10*3/uL (0.11-0.8); NRBC # 0.23 10*3/uL; Neutrophils # 12.8 10*3/uL (1.4-7.4); Platelet Count 100 T/CUMM (130-400); Red Blood Count 2.56 MC/CUMM (3.8-5.5); Red Cell Distribution Width 16.1 % (9.3-17.3); White Blood Count 17.7 T/CUMM (4-12)
[2017-08-12 06:34] LABS: Calcium 8.3 MG/DL (8.5-10.1); Osmolality,Calculated 300.4 MOS/KG (273-304); Potassium 4.1 MMOL/L (3.5-5.1)
[2017-08-12 07:24] LABS: Band Neutrophils 1 % (0-10); Eosinophils 2 % (0-10); Hypochromasia 2+; Lymphocytes 4 % (20-55); Macrocytosis 1+; Nucleated Red Blood Cells 1 (0-5); Platelet Estimate Decreased; Segmented Neutrophils 81 % (50-85); Target Cells Slight; Total Cells Counted 100
[2017-08-12] MEDS ORDERED: GENTAMICIN INJ 180 MG in SODIUM CHLORIDE 0.9% 100 ML IV ONE (13:00)
[2017-08-12] MEDS: INSULIN LISPRO 100 UNIT/ML SUBCUT SCH ×4 (14:01→22:30)
[2017-08-12] MEDS: MUPIROCIN 2% OINT 22 GM TUBE TOP SCH ×3 (14:02→21:07)
[2017-08-12] MEDS: MIDODRINE 5 MG TABLET PO SCH ×3 (14:03→21:05)
[2017-08-12] MEDS: metOLazone 5 MG TABLET PO SCH (14:19)
[2017-08-12] MEDS: OXYBUTYNIN 5 MG TABLET PO SCH ×2 (14:19→21:05)
[2017-08-12] MEDS: CLOTRIMAZOLE/BETAMETHASONE CREAM 15 GM TUBE TOP SCH ×2 (14:24→21:07)
[2017-08-12] MEDS: ZINC OXIDE PASTE 113 GM TUBE TOP PRN (14:27)
[2017-08-12] MEDS: MEROPENEM 500 MG in SYRINGE 1 EACH IV SCH (21:06)
[2017-08-13] MEDS: ACETAMINOPHEN 325 MG TABLET PO PRN (00:42)
[2017-08-13] MEDS: HEPARIN 5,000 UNIT/1 ML VIAL SUBCUT SCH ×3 (02:44→18:39)
[2017-08-13] MEDS: metOLazone 5 MG TABLET PO SCH (09:52)
[2017-08-13] MEDS: MIDODRINE 5 MG TABLET PO SCH ×3 (09:55→21:58)
[2017-08-13] MEDS: INSULIN LISPRO 100 UNIT/ML SUBCUT SCH ×4 (09:57→21:59)
[2017-08-13] MEDS: OXYBUTYNIN 5 MG TABLET PO SCH ×2 (09:57→21:58)
[2017-08-13] MEDS: CLOTRIMAZOLE/BETAMETHASONE CREAM 15 GM TUBE TOP SCH ×2 (09:57→21:59)
[2017-08-13] MEDS: MUPIROCIN 2% OINT 22 GM TUBE TOP SCH ×3 (09:57→21:59)
[2017-08-13 10:57] LABS: Basophils % 0.2 % (0.0-0.8); Eosinophils # 0.3 10*3/uL (0.0-0.87); Eosinophils % 1.5 % (0.00-10.9); Hematocrit 24.7 VOL% (35.7-47.0); Hemoglobin 8.1 GM/DL (12.0-16.0); Immature Granulocytes % 2.4 %; Immature Granulocytes Absolute 0.54 #; Lymphocytes # 0.9 10*3/uL (1.4-4.0); Lymphocytes % 3.7 % (21.3-54.2); Mean Corpuscular HGB Conc 32.8 GM/DL (32-36); Mean Corpuscular Hemoglobin 30 PG (27-34); Mean Corpuscular Volume 92.2 FL (87-102); Mean Platelet Volume 12.5 FL (9.6-12.0); Monocytes % 12.9 % (1.7-12.7); Neutrophils # 18.2 10*3/uL (1.4-7.4); Neutrophils % 79.3 % (38.7-73.9); Platelet Count 101 T/CUMM (130-400); Red Blood Count 2.68 MC/CUMM (3.8-5.5); Red Cell Distribution Width 16.5 % (9.3-17.3); White Blood Count 22.9 T/CUMM (4-12)
[2017-08-13 11:36] LABS: Calcium 8.3 MG/DL (8.5-10.1); Osmolality,Calculated 295.4 MOS/KG (273-304)
[2017-08-13 12:30] LABS: Band Neutrophils 1 % (0-10); Hypochromasia 2+; Lymphocytes 5 % (20-55); Microcytosis 2+; Platelet Estimate Decreased; Segmented Neutrophils 86 % (50-85); Total Cells Counted 100
[2017-08-13] MEDS: MEROPENEM 500 MG in SYRINGE 1 EACH IV SCH (16:30)
[2017-08-13] MEDS: ZALEPLON 5 MG CAPSULE PO SCH (21:59)
[2017-08-14] MEDS: HEPARIN 5,000 UNIT/1 ML VIAL SUBCUT SCH ×3 (03:38→17:31)
[2017-08-14 05:53] LABS: Basophils # 0.1 10*3/uL (0.0-0.2); Basophils % 0.2 % (0.0-0.8); Eosinophils # 0.4 10*3/uL (0.0-0.87); Eosinophils % 1.4 % (0.00-10.9); Hematocrit 24.5 VOL% (35.7-47.0); Hemoglobin 8.2 GM/DL (12.0-16.0); Immature Granulocytes % 2.1 %; Immature Granulocytes Absolute 0.55 #; Lymphocytes # 1.2 10*3/uL (1.4-4.0); Lymphocytes % 4.6 % (21.3-54.2); Mean Corpuscular HGB Conc 33.5 GM/DL (32-36); Mean Corpuscular Hemoglobin 31 PG (27-34); Mean Corpuscular Volume 91.1 FL (87-102); Monocytes # 3.8 10*3/uL (0.11-0.8); Monocytes % 14.7 % (1.7-12.7); NRBC # 0.08 10*3/uL; Neutrophils # 19.9 10*3/uL (1.4-7.4); Platelet Count 118 T/CUMM (130-400); Red Blood Count 2.69 MC/CUMM (3.8-5.5); Red Cell Distribution Width 16.6 % (9.3-17.3); White Blood Count 25.8 T/CUMM (4-12)
[2017-08-14 06:18] LABS: Eosinophils 2 % (0-10); Hypochromasia 2+; Lymphocytes 6 % (20-55); Segmented Neutrophils 82 % (50-85); Total Cells Counted 100
[2017-08-14 06:19] LABS: Calcium 8.2 MG/DL (8.5-10.1); Microcytosis 1+; Osmolality,Calculated 292.5 MOS/KG (273-304); Platelet Estimate Adequate; Potassium 4.2 MMOL/L (3.5-5.1); Target Cells Slight
[2017-08-14] MEDS: MUPIROCIN 2% OINT 22 GM TUBE TOP SCH ×3 (08:52→22:22)
[2017-08-14] MEDS: OXYBUTYNIN 5 MG TABLET PO SCH ×2 (08:53→22:21)
[2017-08-14] MEDS: INSULIN LISPRO 100 UNIT/ML SUBCUT SCH ×4 (08:53→22:21)
[2017-08-14] MEDS: metOLazone 5 MG TABLET PO SCH (08:54)
[2017-08-14] MEDS: MIDODRINE 5 MG TABLET PO SCH ×3 (08:55→23:07)
[2017-08-14] MEDS: CLOTRIMAZOLE/BETAMETHASONE CREAM 15 GM TUBE TOP SCH ×2 (08:55→22:23)
[2017-08-14] MEDS: MEROPENEM 500 MG in SYRINGE 1 EACH IV SCH (16:13)
[2017-08-14] MEDS ORDERED: ALPRAZolam 0.25 MG TABLET PO ONE (22:00)
[2017-08-14] MEDS: ZINC OXIDE PASTE 113 GM TUBE TOP PRN (22:22)
[2017-08-14] MEDS: ZALEPLON 5 MG CAPSULE PO SCH (22:24)
[2017-08-15] MEDS: HEPARIN 5,000 UNIT/1 ML VIAL SUBCUT SCH ×3 (03:43→17:34)
[2017-08-15 05:09] LABS: Basophils # 0.1 10*3/uL (0.0-0.2); Basophils % 0.2 % (0.0-0.8); Eosinophils # 0.5 10*3/uL (0.0-0.87); Eosinophils % 1.8 % (0.00-10.9); Hematocrit 24.2 VOL% (35.7-47.0); Hemoglobin 8.1 GM/DL (12.0-16.0); Immature Granulocytes % 2.2 %; Immature Granulocytes Absolute 0.55 #; Lymphocytes # 1.1 10*3/uL (1.4-4.0); Lymphocytes % 4.4 % (21.3-54.2); Mean Corpuscular HGB Conc 33.5 GM/DL (32-36); Mean Corpuscular Hemoglobin 30 PG (27-34); Mean Corpuscular Volume 90.3 FL (87-102); Mean Platelet Volume 12.5 FL (9.6-12.0); Monocytes # 3.3 10*3/uL (0.11-0.8); Monocytes % 12.9 % (1.7-12.7); NRBC # 0.06 10*3/uL; Neutrophils # 19.9 10*3/uL (1.4-7.4); Neutrophils % 78.5 % (38.7-73.9); Platelet Count 139 T/CUMM (130-400); Red Blood Count 2.68 MC/CUMM (3.8-5.5); Red Cell Distribution Width 16.7 % (9.3-17.3); White Blood Count 25.4 T/CUMM (4-12)
[2017-08-15 05:43] LABS: Band Neutrophils 4 % (0-10); Lymphocytes 3 % (20-55); Metamyelocytes 1 %; Myelocytes 4 %
[2017-08-15 05:44] LABS: Anisocytosis 1+; Eosinophils 2 % (0-10); Hypochromasia 1+; Segmented Neutrophils 82 % (50-85); Total Cells Counted 100
[2017-08-15 05:46] LABS: Calcium 7.9 MG/DL (8.5-10.1); Osmolality,Calculated 297.1 MOS/KG (273-304); Platelet Estimate Normal; Potassium 4.2 MMOL/L (3.5-5.1); Target Cells 1+
[2017-08-15] MEDS: MUPIROCIN 2% OINT 22 GM TUBE TOP SCH ×3 (08:18→21:19)
[2017-08-15] MEDS: metOLazone 5 MG TABLET PO SCH (08:18)
[2017-08-15] MEDS: OXYBUTYNIN 5 MG TABLET PO SCH ×2 (08:19→21:16)
[2017-08-15] MEDS: MIDODRINE 5 MG TABLET PO SCH ×3 (08:19→21:15)
[2017-08-15] MEDS: INSULIN LISPRO 100 UNIT/ML SUBCUT SCH ×4 (08:20→21:19)
[2017-08-15] MEDS: CLOTRIMAZOLE/BETAMETHASONE CREAM 15 GM TUBE TOP SCH ×2 (08:20→21:20)
[2017-08-15] MEDS ORDERED: HEPARIN 10,000 UNIT/10 ML VIAL IV PRN (10:40)
[2017-08-15] MEDS: ACETAMINOPHEN 325 MG TABLET PO PRN (14:43)
[2017-08-15] MEDS: ALPRAZolam 0.25 MG TABLET PO PRN ×2 (15:40→21:15)
[2017-08-15] MEDS: MEROPENEM 500 MG in SYRINGE 1 EACH IV SCH (16:32)
[2017-08-16] MEDS: ZALEPLON 5 MG CAPSULE PO SCH ×2 (00:12→20:56)
[2017-08-16] MEDS: HEPARIN 5,000 UNIT/1 ML VIAL SUBCUT SCH ×3 (04:11→17:33)
[2017-08-16 04:58] LABS: Basophils # 0.1 10*3/uL (0.0-0.2); Basophils % 0.3 % (0.0-0.8); Eosinophils # 0.6 10*3/uL (0.0-0.87); Eosinophils % 2.8 % (0.00-10.9); Hematocrit 24.8 VOL% (35.7-47.0); Immature Granulocytes % 2.5 %; Immature Granulocytes Absolute 0.51 #; Lymphocytes # 0.9 10*3/uL (1.4-4.0); Lymphocytes % 4.5 % (21.3-54.2); Mean Corpuscular HGB Conc 32.3 GM/DL (32-36); Mean Corpuscular Hemoglobin 30 PG (27-34); Mean Corpuscular Volume 93.9 FL (87-102); Mean Platelet Volume 12.7 FL (9.6-12.0); Monocytes # 2.8 10*3/uL (0.11-0.8); Monocytes % 14.1 % (1.7-12.7); NRBC # 0.04 10*3/uL; Neutrophils # 15.2 10*3/uL (1.4-7.4); Neutrophils % 75.8 % (38.7-73.9); Platelet Count 150 T/CUMM (130-400); Red Blood Count 2.64 MC/CUMM (3.8-5.5); Red Cell Distribution Width 17.3 % (9.3-17.3); White Blood Count 20.1 T/CUMM (4-12)
[2017-08-16 05:27] LABS: Calcium 7.7 MG/DL (8.5-10.1); Osmolality,Calculated 282.7 MOS/KG (273-304); Potassium 4.2 MMOL/L (3.5-5.1)
[2017-08-16 06:02] LABS: Anisocytosis 1+; Band Neutrophils 6 % (0-10); Eosinophils 1 % (0-10); Lymphocytes 3 % (20-55); Metamyelocytes 1 %; Myelocytes 2 %; Segmented Neutrophils 82 % (50-85); Total Cells Counted 100
[2017-08-16 06:03] LABS: Hypochromasia 1+; Platelet Estimate Adequate; Target Cells 1+
[2017-08-16] MEDS: CLOTRIMAZOLE/BETAMETHASONE CREAM 15 GM TUBE TOP SCH ×2 (09:00→20:58)
[2017-08-16] MEDS: MUPIROCIN 2% OINT 22 GM TUBE TOP SCH ×3 (09:00→20:58)
[2017-08-16] MEDS: metOLazone 5 MG TABLET PO SCH (09:02)
[2017-08-16] MEDS: MIDODRINE 5 MG TABLET PO SCH ×3 (09:02→20:56)
[2017-08-16] MEDS: OXYBUTYNIN 5 MG TABLET PO SCH ×2 (09:02→20:56)
[2017-08-16] MEDS: ALPRAZolam 0.25 MG TABLET PO PRN (09:09)
[2017-08-16] MEDS: ACETAMINOPHEN 325 MG TABLET PO PRN ×2 (09:09→23:55)
[2017-08-16] MEDS: INSULIN LISPRO 100 UNIT/ML SUBCUT SCH ×4 (09:16→20:58)
[2017-08-16] MEDS: MEROPENEM 500 MG in SYRINGE 1 EACH IV SCH (16:32)
[2017-08-17] MEDS: HEPARIN 5,000 UNIT/1 ML VIAL SUBCUT SCH ×3 (03:40→18:37)
[2017-08-17] MEDS: INSULIN LISPRO 100 UNIT/ML SUBCUT SCH ×4 (08:41→21:44)
[2017-08-17] MEDS: metOLazone 5 MG TABLET PO SCH (11:01)
[2017-08-17] MEDS: OXYBUTYNIN 5 MG TABLET PO SCH ×2 (11:02→21:43)
[2017-08-17] MEDS: MIDODRINE 5 MG TABLET PO SCH ×3 (11:02→21:44)
[2017-08-17] MEDS: CLOTRIMAZOLE/BETAMETHASONE CREAM 15 GM TUBE TOP SCH ×2 (11:03→21:44)
[2017-08-17] MEDS: MUPIROCIN 2% OINT 22 GM TUBE TOP SCH ×3 (11:03→21:44)
[2017-08-17] MEDS: MEROPENEM 500 MG in SYRINGE 1 EACH IV SCH (16:22)
[2017-08-17] MEDS: ALPRAZolam 0.25 MG TABLET PO PRN (21:44)
[2017-08-17] MEDS: ZINC OXIDE PASTE 113 GM TUBE TOP PRN (21:44)
[2017-08-17] MEDS: ZALEPLON 5 MG CAPSULE PO SCH (21:44)
[2017-08-18] MEDS: HEPARIN 5,000 UNIT/1 ML VIAL SUBCUT SCH ×2 (03:00→13:38)
[2017-08-18] MEDS: INSULIN LISPRO 100 UNIT/ML SUBCUT SCH ×2 (09:49→15:25)
[2017-08-18] MEDS ORDERED: TUBERCULIN SKIN TEST 0.1 ML SYRINGE INTRADERM ONE (12:00)
[2017-08-18] MEDS: metOLazone 5 MG TABLET PO SCH (13:34)
[2017-08-18] MEDS: OXYBUTYNIN 5 MG TABLET PO SCH (13:35)
[2017-08-18] MEDS: MIDODRINE 5 MG TABLET PO SCH ×2 (13:35→15:26)
[2017-08-18 14:45] VITALS: BP 169/68
[2017-08-18] MEDS: MUPIROCIN 2% OINT 22 GM TUBE TOP SCH (15:25)
[2017-08-18] MEDS: CLOTRIMAZOLE/BETAMETHASONE CREAM 15 GM TUBE TOP SCH (15:25)
== END 2017-08-18 16:00 | disposition home or self-care (01) | DRG 682 ==
LOC: SUPCPDRO 10:56 → SUATTDRO 10:56 → N.2E 10:56 → N.CC 08-02 08:08 → N.TELEN 08-09 12:15

== ENCOUNTER 2017-08-21 20:01 | Inpatient (IN) ==
[2017-08-21] MEDS ORDERED: SODIUM CHLORIDE 0.9% 500 ML IV STA (20:31)
[2017-08-21] MEDS ORDERED: PROMETHAZINE 25 MG TABLET PO PRN (21:17)
[2017-08-21 21:33] LABS: Basophils % 0.4 % (0.0-0.8); Eosinophils # 0.2 10*3/uL (0.0-0.87); Eosinophils % 1.9 % (0.00-10.9); Hematocrit 24.6 VOL% (35.7-47.0); Hemoglobin 7.6 GM/DL (12.0-16.0); Lymphocytes # 0.6 10*3/uL (1.4-4.0); Lymphocytes % 5.5 % (21.3-54.2); Mean Corpuscular HGB Conc 30.9 GM/DL (32-36); Mean Corpuscular Hemoglobin 30 PG (27-34); Mean Corpuscular Volume 95.7 FL (87-102); Mean Platelet Volume 11.9 FL (9.6-12.0); Monocytes # 1.1 10*3/uL (0.11-0.8); Monocytes % 10.3 % (1.7-12.7); Neutrophils # 8.3 10*3/uL (1.4-7.4); Neutrophils % 80.9 % (38.7-73.9); Platelet Count 213 T/CUMM (130-400); Red Blood Count 2.57 MC/CUMM (3.8-5.5); Red Cell Distribution Width 18.2 % (9.3-17.3); White Blood Count 10.2 T/CUMM (4-12)
[2017-08-21 21:42] LABS: INR 1.2; PT Patient Result 12.4 SECS
[2017-08-21 21:54] LABS: Lactic Acid 1.3 MMOL/L (0.4-2.0)
[2017-08-21 21:57] LABS: Alanine Aminotransferase 23 U/L (13-56); Albumin 2.4 G/DL (3.4-5.0); Alkaline Phosphatase 172 U/L (45-117); Aspartate Amino Transferase 20 U/L (0-37); Blood Urea Nitrogen 33 MG/DL (7-18); Calcium 7.6 MG/DL (8.5-10.1); Glucose 167 MG/DL (74-106); Magnesium 2.1 MG/DL (1.8-2.4); Osmolality,Calculated 280.1 MOS/KG (273-304); Sodium 135 MMOL/L (136-145); Total Protein 5.8 G/DL (6.4-8.3); Troponin I Only 0.016 NG/ML (0.00-0.045)
[2017-08-21] MEDS ORDERED: NOREPINEPHRINE 4 MG/4 ML VIAL IV ONE (22:07)
[2017-08-21] MEDS: NOREPINEPHRINE 8 MG in SODIUM CHLORIDE 0.9% 242 ML IV SCH (23:07)
[2017-08-21] MEDS: cefTRIAXone 1,000 MG in SYRINGE 1 EACH IV SCH (23:20)
[2017-08-21] MEDS ORDERED: ACETAMINOPHEN 325 MG TABLET PO PRN (23:44)
[2017-08-21] MEDS ORDERED: ALBUTEROL/IPRATROPIUM 3 ML NEB RESP TX PRN (23:52)
[2017-08-21 23:58] LABS: Apearance,Urine Slightly Hazy (Clear); Bilirubin,Urine Negative (Negative); Blood, Urine Small mg/dL (Negative); Glucose,Urine (UA) Negative (Negative); Ketones,Urine Negative (Negative); Mucus,Urine Occasional /LPF (Occasional); Nitrite,Urine Negative (Negative); Protein,Urine Negative; RBC,Urine <1 /HPF (0-4); Urine Color Yellow (Yellow); Urine Specific Gravity 1.011 (1.001-1.035); Urine Urobilinogen < 2.0 EU/DL (0.2-1.0); WBC,Urine 3 /HPF (0-6)
[2017-08-22 03:47] LABS: Basophils % 0.3 % (0.0-0.8); Eosinophils # 0.3 10*3/uL (0.0-0.87); Eosinophils % 2.3 % (0.00-10.9); Hemoglobin 7.9 GM/DL (12.0-16.0); Immature Granulocytes % 0.6 %; Immature Granulocytes Absolute 0.07 #; Lymphocytes # 0.6 10*3/uL (1.4-4.0); Mean Corpuscular HGB Conc 31.6 GM/DL (32-36); Mean Corpuscular Hemoglobin 30 PG (27-34); Mean Corpuscular Volume 95.1 FL (87-102); Mean Platelet Volume 12.4 FL (9.6-12.0); Monocytes # 1.3 10*3/uL (0.11-0.8); Monocytes % 11.5 % (1.7-12.7); Neutrophils # 9.3 10*3/uL (1.4-7.4); Neutrophils % 80.3 % (38.7-73.9); Platelet Count 217 T/CUMM (130-400); Red Blood Count 2.63 MC/CUMM (3.8-5.5); Red Cell Distribution Width 18.4 % (9.3-17.3); White Blood Count 11.6 T/CUMM (4-12)
[2017-08-22 04:20] LABS: Calcium 7.8 MG/DL (8.5-10.1); Osmolality,Calculated 286.8 MOS/KG (273-304); Potassium 4.6 MMOL/L (3.5-5.1)
[2017-08-22] MEDS ORDERED: GLUCAGON 1 MG VIAL IM PRN (05:03)
[2017-08-22] MEDS ORDERED: DEXTROSE 50% 25 GM/50 ML VIAL IV PRN (05:03)
[2017-08-22] MEDS: NOREPINEPHRINE 8 MG in SODIUM CHLORIDE 0.9% 242 ML IV SCH ×2 (07:50→16:06)
[2017-08-22] MEDS ORDERED: VANCOMYCIN INJ 1,000 MG in SODIUM CHLORIDE 0.9% 250 ML IV ONE (10:00)
[2017-08-22] MEDS: ZINC SULFATE 220 MG CAPSULE PO SCH (10:04)
[2017-08-22] MEDS: ASPIRIN EC 81 MG TABLET PO SCH (10:04)
[2017-08-22] MEDS: DOCUSATE SODIUM 100 MG CAPSULE PO SCH (10:04)
[2017-08-22] MEDS: LEVOTHYROXINE 200 MCG TABLET PO SCH (10:04)
[2017-08-22] MEDS: ALLOPURINOL 300 MG TABLET PO SCH (10:04)
[2017-08-22] MEDS: ASCORBIC ACID 500 MG TABLET PO SCH ×2 (10:04→21:05)
[2017-08-22] MEDS: OXYBUTYNIN 5 MG TABLET PO SCH ×2 (10:05→21:04)
[2017-08-22] MEDS: MIDODRINE 5 MG TABLET PO SCH ×3 (10:05→21:04)
[2017-08-22] MEDS: PREGABALIN 25 MG CAPSULE PO SCH ×2 (10:05→21:05)
[2017-08-22] MEDS: INSULIN LISPRO 100 UNIT/ML SUBCUT SCH ×4 (10:06→21:04)
[2017-08-22] MEDS ORDERED: SODIUM CHLORIDE 0.9% 1,000 ML IV PRN (15:03)
[2017-08-22] MEDS: ACETAMINOPHEN 325 MG TABLET PO PRN (21:03)
[2017-08-22] MEDS: TIMOLOL 0.5% OPH SOLN 5 ML BOTTLE BOTH EYES SCH (21:03)
[2017-08-22] MEDS: ATORVASTATIN 40 MG TABLET PO SCH (21:04)
[2017-08-22] MEDS: cefTRIAXone 1,000 MG in SYRINGE 1 EACH IV SCH (22:49)
[2017-08-23] MEDS: NOREPINEPHRINE 8 MG in SODIUM CHLORIDE 0.9% 242 ML IV SCH ×3 (00:52→18:13)
[2017-08-23 06:03] LABS: Basophils # 0.1 10*3/uL (0.0-0.2); Basophils % 0.5 % (0.0-0.8); Eosinophils # 0.5 10*3/uL (0.0-0.87); Hematocrit 29.1 VOL% (35.7-47.0); Immature Granulocytes Absolute 0.13 #; Lymphocytes # 0.8 10*3/uL (1.4-4.0); Lymphocytes % 6.4 % (21.3-54.2); Mean Corpuscular Hemoglobin 30 PG (27-34); Mean Corpuscular Volume 91.5 FL (87-102); Mean Platelet Volume 12.4 FL (9.6-12.0); Monocytes # 1.7 10*3/uL (0.11-0.8); Monocytes % 13.3 % (1.7-12.7); Neutrophils # 9.6 10*3/uL (1.4-7.4); Neutrophils % 74.8 % (38.7-73.9); Platelet Count 303 T/CUMM (130-400); Red Blood Count 3.18 MC/CUMM (3.8-5.5); Red Cell Distribution Width 17.9 % (9.3-17.3); White Blood Count 12.9 T/CUMM (4-12)
[2017-08-23 06:14] LABS: Hemoglobin 9.6 GM/DL (12.0-16.0)
[2017-08-23 06:22] LABS: Calcium 7.7 MG/DL (8.5-10.1); Magnesium 2.3 MG/DL (1.8-2.4); Potassium 4.7 MMOL/L (3.5-5.1)
[2017-08-23] MEDS: ALLOPURINOL 300 MG TABLET PO SCH (09:08)
[2017-08-23] MEDS: MIDODRINE 5 MG TABLET PO SCH ×3 (09:08→20:48)
[2017-08-23] MEDS: ASCORBIC ACID 500 MG TABLET PO SCH ×2 (09:08→20:48)
[2017-08-23] MEDS: LEVOTHYROXINE 200 MCG TABLET PO SCH (09:08)
[2017-08-23] MEDS: OXYBUTYNIN 5 MG TABLET PO SCH ×2 (09:09→20:48)
[2017-08-23] MEDS: DOCUSATE SODIUM 100 MG CAPSULE PO SCH (09:09)
[2017-08-23] MEDS: ZINC SULFATE 220 MG CAPSULE PO SCH (09:09)
[2017-08-23] MEDS: ASPIRIN EC 81 MG TABLET PO SCH (09:09)
[2017-08-23] MEDS: PREGABALIN 25 MG CAPSULE PO SCH ×2 (09:10→21:19)
[2017-08-23] MEDS: INSULIN LISPRO 100 UNIT/ML SUBCUT SCH ×4 (09:10→20:49)
[2017-08-23] MEDS: ACETAMINOPHEN 325 MG TABLET PO PRN (20:47)
[2017-08-23] MEDS: ATORVASTATIN 40 MG TABLET PO SCH (20:48)
[2017-08-23] MEDS: TIMOLOL 0.5% OPH SOLN 5 ML BOTTLE BOTH EYES SCH (20:49)
[2017-08-23] MEDS: cefTRIAXone 1,000 MG in SYRINGE 1 EACH IV SCH (22:19)
[2017-08-24] MEDS: INSULIN LISPRO 100 UNIT/ML SUBCUT SCH ×4 (09:00→21:24)
[2017-08-24] MEDS: ZINC SULFATE 220 MG CAPSULE PO SCH (09:22)
[2017-08-24] MEDS: OXYBUTYNIN 5 MG TABLET PO SCH ×2 (09:22→21:25)
[2017-08-24] MEDS: ASPIRIN EC 81 MG TABLET PO SCH (09:22)
[2017-08-24] MEDS: ALLOPURINOL 300 MG TABLET PO SCH (09:23)
[2017-08-24] MEDS: LACTULOSE 20 GM/30 ML UDCUP PO PRN (09:23)
[2017-08-24] MEDS: DOCUSATE SODIUM 100 MG CAPSULE PO SCH (09:23)
[2017-08-24] MEDS: ENOXAPARIN 30 MG/0.3 ML SYRINGE SUBCUT SCH (09:23)
[2017-08-24] MEDS: LEVOTHYROXINE 200 MCG TABLET PO SCH (09:23)
[2017-08-24] MEDS: ASCORBIC ACID 500 MG TABLET PO SCH ×2 (09:23→21:25)
[2017-08-24] MEDS: MIDODRINE 5 MG TABLET PO SCH ×3 (09:23→21:24)
[2017-08-24] MEDS: PREGABALIN 25 MG CAPSULE PO SCH ×2 (09:24→21:24)
[2017-08-24] MEDS ORDERED: SKIN HEALING OINT (AQUAPHOR) 50 GM TUBE TOP PRN (10:40)
[2017-08-24] MEDS: NOREPINEPHRINE 8 MG in SODIUM CHLORIDE 0.9% 242 ML IV SCH ×3 (11:40→22:07)
[2017-08-24] MEDS: WARFARIN 5 MG TABLET PO SCH (17:39)
[2017-08-24] MEDS ORDERED: HEPARIN 10,000 UNIT/10 ML VIAL IV PRN (18:38)
[2017-08-24] MEDS ORDERED: FAMOTIDINE 20 MG TABLET PO SCH (21:00)
[2017-08-24] MEDS: ZINC OXIDE PASTE 113 GM TUBE TOP SCH (21:19)
[2017-08-24] MEDS: ACETAMINOPHEN 325 MG TABLET PO PRN (21:23)
[2017-08-24] MEDS: cefTRIAXone 1,000 MG in SYRINGE 1 EACH IV SCH (21:23)
[2017-08-24] MEDS: TIMOLOL 0.5% OPH SOLN 5 ML BOTTLE BOTH EYES SCH (21:24)
[2017-08-24] MEDS: ATORVASTATIN 40 MG TABLET PO SCH (21:25)
[2017-08-25 04:53] LABS: Basophils # 0.1 10*3/uL (0.0-0.2); Basophils % 0.8 % (0.0-0.8); Eosinophils # 0.8 10*3/uL (0.0-0.87); Hematocrit 31.1 VOL% (35.7-47.0); Immature Granulocytes % 0.9 %; Immature Granulocytes Absolute 0.08 #; Lymphocytes # 0.6 10*3/uL (1.4-4.0); Lymphocytes % 6.7 % (21.3-54.2); Mean Corpuscular HGB Conc 32.2 GM/DL (32-36); Mean Corpuscular Hemoglobin 30 PG (27-34); Mean Corpuscular Volume 94.2 FL (87-102); Mean Platelet Volume 11.4 FL (9.6-12.0); Monocytes # 1.4 10*3/uL (0.11-0.8); Neutrophils # 6.2 10*3/uL (1.4-7.4); Neutrophils % 67.6 % (38.7-73.9); Platelet Count 254 T/CUMM (130-400); Red Cell Distribution Width 18.2 % (9.3-17.3); White Blood Count 9.2 T/CUMM (4-12)
[2017-08-25 05:01] LABS: INR 1.1; PT Patient Result 11.3 SECS
[2017-08-25] MEDS: INSULIN LISPRO 100 UNIT/ML SUBCUT SCH ×4 (07:41→20:12)
[2017-08-25] MEDS: LEVOTHYROXINE 200 MCG TABLET PO SCH (07:41)
[2017-08-25 08:02] LABS: Calcium 7.9 MG/DL (8.5-10.1); Potassium 4.7 MMOL/L (3.5-5.1)
[2017-08-25] MEDS: ENOXAPARIN 30 MG/0.3 ML SYRINGE SUBCUT SCH (08:42)
[2017-08-25] MEDS: MIDODRINE 5 MG TABLET PO SCH ×3 (08:43→20:13)
[2017-08-25] MEDS: ASCORBIC ACID 500 MG TABLET PO SCH ×2 (08:43→20:12)
[2017-08-25] MEDS: ALLOPURINOL 300 MG TABLET PO SCH (08:43)
[2017-08-25] MEDS: ZINC SULFATE 220 MG CAPSULE PO SCH (08:43)
[2017-08-25] MEDS: OXYBUTYNIN 5 MG TABLET PO SCH ×2 (08:43→20:12)
[2017-08-25] MEDS: FAMOTIDINE 20 MG TABLET PO SCH (08:44)
[2017-08-25] MEDS: FLUDROCORTISONE 0.1 MG TABLET PO SCH ×2 (08:44→20:13)
[2017-08-25] MEDS: DOCUSATE SODIUM 100 MG CAPSULE PO SCH (08:45)
[2017-08-25] MEDS: ASPIRIN EC 81 MG TABLET PO SCH (08:45)
[2017-08-25] MEDS: ZINC OXIDE PASTE 113 GM TUBE TOP SCH ×2 (08:45→20:12)
[2017-08-25] MEDS: PREGABALIN 25 MG CAPSULE PO SCH ×2 (08:45→20:12)
[2017-08-25] MEDS: NOREPINEPHRINE 8 MG in SODIUM CHLORIDE 0.9% 242 ML IV SCH ×2 (13:16→21:00)
[2017-08-25] MEDS: WARFARIN 5 MG TABLET PO SCH (17:21)
[2017-08-25] MEDS: ACETAMINOPHEN 325 MG TABLET PO PRN (20:11)
[2017-08-25] MEDS: TIMOLOL 0.5% OPH SOLN 5 ML BOTTLE BOTH EYES SCH (20:13)
[2017-08-25] MEDS: ATORVASTATIN 40 MG TABLET PO SCH (20:13)
[2017-08-25] MEDS: cefTRIAXone 1,000 MG in SYRINGE 1 EACH IV SCH (20:31)
[2017-08-26 04:44] LABS: Basophils % 0.6 % (0.0-0.8); Eosinophils # 0.6 10*3/uL (0.0-0.87); Eosinophils % 8.9 % (0.00-10.9); Hematocrit 29.4 VOL% (35.7-47.0); Hemoglobin 9.3 GM/DL (12.0-16.0); Immature Granulocytes Absolute 0.07 #; Lymphocytes # 0.6 10*3/uL (1.4-4.0); Lymphocytes % 8.4 % (21.3-54.2); Mean Corpuscular HGB Conc 31.6 GM/DL (32-36); Mean Corpuscular Hemoglobin 30 PG (27-34); Mean Corpuscular Volume 94.5 FL (87-102); Mean Platelet Volume 11.5 FL (9.6-12.0); Monocytes # 1.2 10*3/uL (0.11-0.8); Monocytes % 17.1 % (1.7-12.7); Neutrophils # 4.5 10*3/uL (1.4-7.4); Platelet Count 267 T/CUMM (130-400); Red Blood Count 3.11 MC/CUMM (3.8-5.5); Red Cell Distribution Width 18.1 % (9.3-17.3)
[2017-08-26 05:10] LABS: Calcium 7.7 MG/DL (8.5-10.1); Osmolality,Calculated 288.7 MOS/KG (273-304); Potassium 4.7 MMOL/L (3.5-5.1)
[2017-08-26 05:14] LABS: Eosinophils 12 % (0-10); Hypochromasia 1+; Lymphocytes 11 % (20-55); Microcytosis 1+; Ovalocytes Slight; Segmented Neutrophils 70 % (50-85); Total Cells Counted 100
[2017-08-26 05:15] LABS: Target Cells Slight
[2017-08-26] MEDS: INSULIN LISPRO 100 UNIT/ML SUBCUT SCH ×4 (07:31→20:23)
[2017-08-26] MEDS: ASPIRIN EC 81 MG TABLET PO SCH (08:13)
[2017-08-26] MEDS: LEVOTHYROXINE 200 MCG TABLET PO SCH (08:14)
[2017-08-26] MEDS: OXYBUTYNIN 5 MG TABLET PO SCH ×2 (08:14→20:25)
[2017-08-26] MEDS: FLUDROCORTISONE 0.1 MG TABLET PO SCH ×2 (08:14→20:25)
[2017-08-26] MEDS: PREGABALIN 25 MG CAPSULE PO SCH ×2 (08:14→22:20)
[2017-08-26] MEDS: MIDODRINE 5 MG TABLET PO SCH ×3 (08:14→20:25)
[2017-08-26] MEDS: ENOXAPARIN 30 MG/0.3 ML SYRINGE SUBCUT SCH (08:14)
[2017-08-26] MEDS: DOCUSATE SODIUM 100 MG CAPSULE PO SCH (08:14)
[2017-08-26] MEDS: FAMOTIDINE 20 MG TABLET PO SCH (08:14)
[2017-08-26] MEDS: ALLOPURINOL 300 MG TABLET PO SCH (08:14)
[2017-08-26] MEDS: ASCORBIC ACID 500 MG TABLET PO SCH ×2 (08:14→20:24)
[2017-08-26] MEDS: ZINC SULFATE 220 MG CAPSULE PO SCH (08:14)
[2017-08-26] MEDS: ZINC OXIDE PASTE 113 GM TUBE TOP SCH ×2 (09:45→20:26)
[2017-08-26] MEDS: WARFARIN 5 MG TABLET PO SCH ×2 (16:13→17:25)
[2017-08-26 17:40] LABS: INR 1.4; PT Patient Result 15.1 SECS
[2017-08-26] MEDS: ATORVASTATIN 40 MG TABLET PO SCH (20:24)
[2017-08-26] MEDS: NYSTATIN CREAM 15 GM TUBE TOP SCH (20:25)
[2017-08-26] MEDS: cefTRIAXone 1,000 MG in SYRINGE 1 EACH IV SCH (20:26)
[2017-08-26] MEDS: TIMOLOL 0.5% OPH SOLN 5 ML BOTTLE BOTH EYES SCH ×2 (22:22→23:38)
[2017-08-27 05:31] LABS: Basophils % 0.6 % (0.0-0.8); Eosinophils # 0.7 10*3/uL (0.0-0.87); Hematocrit 28.6 VOL% (35.7-47.0); Hemoglobin 8.9 GM/DL (12.0-16.0); Immature Granulocytes Absolute 0.07 #; Lymphocytes # 0.5 10*3/uL (1.4-4.0); Mean Corpuscular HGB Conc 31.1 GM/DL (32-36); Mean Corpuscular Hemoglobin 30 PG (27-34); Mean Corpuscular Volume 96.6 FL (87-102); Mean Platelet Volume 11.2 FL (9.6-12.0); Monocytes % 15.1 % (1.7-12.7); Neutrophils # 4.5 10*3/uL (1.4-7.4); Neutrophils % 66.3 % (38.7-73.9); Platelet Count 252 T/CUMM (130-400); Red Blood Count 2.96 MC/CUMM (3.8-5.5); Red Cell Distribution Width 17.9 % (9.3-17.3); White Blood Count 6.8 T/CUMM (4-12)
[2017-08-27 05:50] LABS: Calcium 7.8 MG/DL (8.5-10.1); Osmolality,Calculated 284.5 MOS/KG (273-304); Potassium 4.4 MMOL/L (3.5-5.1)
[2017-08-27 05:53] LABS: INR 1.5; PT Patient Result 15.9 SECS
[2017-08-27] MEDS: LEVOTHYROXINE 200 MCG TABLET PO SCH (06:31)
[2017-08-27] MEDS: FLUDROCORTISONE 0.1 MG TABLET PO SCH ×2 (09:43→20:58)
[2017-08-27] MEDS: OXYBUTYNIN 5 MG TABLET PO SCH ×2 (09:43→20:58)
[2017-08-27] MEDS: MIDODRINE 5 MG TABLET PO SCH ×3 (09:43→20:59)
[2017-08-27] MEDS: LACTULOSE 20 GM/30 ML UDCUP PO PRN (09:43)
[2017-08-27] MEDS: DOCUSATE SODIUM 100 MG CAPSULE PO SCH (09:44)
[2017-08-27] MEDS: PREGABALIN 25 MG CAPSULE PO SCH ×2 (09:44→20:59)
[2017-08-27] MEDS: ASCORBIC ACID 500 MG TABLET PO SCH ×2 (09:44→20:59)
[2017-08-27] MEDS: INSULIN LISPRO 100 UNIT/ML SUBCUT SCH ×4 (09:44→20:55)
[2017-08-27] MEDS: ALLOPURINOL 300 MG TABLET PO SCH (09:44)
[2017-08-27] MEDS: ENOXAPARIN 30 MG/0.3 ML SYRINGE SUBCUT SCH (09:44)
[2017-08-27] MEDS: ASPIRIN EC 81 MG TABLET PO SCH (09:44)
[2017-08-27] MEDS: ZINC SULFATE 220 MG CAPSULE PO SCH (09:44)
[2017-08-27] MEDS: ZINC OXIDE PASTE 113 GM TUBE TOP SCH ×2 (09:45→21:00)
[2017-08-27] MEDS: NYSTATIN CREAM 15 GM TUBE TOP SCH ×3 (09:45→20:59)
[2017-08-27] MEDS: FAMOTIDINE 20 MG TABLET PO SCH (09:45)
[2017-08-27] MEDS ORDERED: WARFARIN 5 MG TABLET PO SCH (13:58)
[2017-08-27] MEDS: ATORVASTATIN 40 MG TABLET PO SCH (20:59)
[2017-08-27] MEDS: TIMOLOL 0.5% OPH SOLN 5 ML BOTTLE BOTH EYES SCH (20:59)
[2017-08-27] MEDS: cefTRIAXone 1,000 MG in SYRINGE 1 EACH IV SCH (20:59)
[2017-08-28 05:26] LABS: Basophils % 0.6 % (0.0-0.8); Eosinophils # 0.7 10*3/uL (0.0-0.87); Eosinophils % 10.1 % (0.00-10.9); Hematocrit 28.4 VOL% (35.7-47.0); Hemoglobin 8.5 GM/DL (12.0-16.0); Immature Granulocytes % 0.8 %; Immature Granulocytes Absolute 0.05 #; Lymphocytes # 0.9 10*3/uL (1.4-4.0); Lymphocytes % 13.2 % (21.3-54.2); Mean Corpuscular HGB Conc 29.9 GM/DL (32-36); Mean Corpuscular Hemoglobin 30 PG (27-34); Mean Corpuscular Volume 98.6 FL (87-102); Mean Platelet Volume 11.6 FL (9.6-12.0); Monocytes # 1.1 10*3/uL (0.11-0.8); Monocytes % 17.7 % (1.7-12.7); Neutrophils # 3.7 10*3/uL (1.4-7.4); Neutrophils % 57.6 % (38.7-73.9); Platelet Count 235 T/CUMM (130-400); Red Blood Count 2.88 MC/CUMM (3.8-5.5); Red Cell Distribution Width 17.9 % (9.3-17.3); White Blood Count 6.4 T/CUMM (4-12)
[2017-08-28 05:27] LABS: INR 1.8; PT Patient Result 18.6 SECS
[2017-08-28 05:57] LABS: Calcium 7.9 MG/DL (8.5-10.1); Osmolality,Calculated 281.8 MOS/KG (273-304); Potassium 4.4 MMOL/L (3.5-5.1)
[2017-08-28 06:08] LABS: Band Neutrophils 3 % (0-10); Eosinophils 10 % (0-10); Giant Platelets Few; Lymphocytes 9 % (20-55); Platelet Estimate Adequate; Segmented Neutrophils 67 % (50-85); Total Cells Counted 100
[2017-08-28 06:09] LABS: Hypochromasia 1+; Microcytosis Slight; Ovalocytes Slight
[2017-08-28] MEDS: ASPIRIN EC 81 MG TABLET PO SCH (08:48)
[2017-08-28] MEDS: INSULIN LISPRO 100 UNIT/ML SUBCUT SCH ×2 (08:48→11:59)
[2017-08-28] MEDS: LEVOTHYROXINE 200 MCG TABLET PO SCH (08:48)
[2017-08-28] MEDS: FAMOTIDINE 20 MG TABLET PO SCH (08:49)
[2017-08-28] MEDS: MIDODRINE 5 MG TABLET PO SCH (08:49)
[2017-08-28] MEDS: PREGABALIN 25 MG CAPSULE PO SCH (08:49)
[2017-08-28] MEDS: OXYBUTYNIN 5 MG TABLET PO SCH (08:49)
[2017-08-28] MEDS: FLUDROCORTISONE 0.1 MG TABLET PO SCH (08:49)
[2017-08-28] MEDS: NYSTATIN CREAM 15 GM TUBE TOP SCH (08:49)
[2017-08-28] MEDS: ENOXAPARIN 30 MG/0.3 ML SYRINGE SUBCUT SCH (08:49)
[2017-08-28] MEDS: DOCUSATE SODIUM 100 MG CAPSULE PO SCH (08:49)
[2017-08-28] MEDS: ZINC OXIDE PASTE 113 GM TUBE TOP SCH (08:49)
[2017-08-28] MEDS: ALLOPURINOL 300 MG TABLET PO SCH (08:50)
[2017-08-28] MEDS: ZINC SULFATE 220 MG CAPSULE PO SCH (08:50)
[2017-08-28] MEDS: ASCORBIC ACID 500 MG TABLET PO SCH (08:50)
[2017-08-28] MEDS ORDERED: HEPARIN 10,000 UNIT/10 ML VIAL IV PRN (10:20)
[2017-08-28 12:16] VITALS: BP 104/60
== END 2017-08-28 15:03 | disposition swing bed (61) | DRG 871 ==
LOC: EDBD → EDUNIT# → N.ED 20:01 → N.EDINP 21:17 → SUATTDRO 21:18 → N.CC 21:35 → N.5E 08-26 10:24
PROVIDERS: ADMIT Internal Medicine; ATTEND Internal Medicine

== ENCOUNTER 2019-04-14 21:32 | Inpatient (IN) ==
[2019-04-15] MEDS: MORPHINE 4 MG/1 ML VIAL IV PRN ×4 (00:52→21:42)
[2019-04-15] MEDS ORDERED: HEPARIN 5,000 UNIT/1 ML VIAL SUBCUT SCH (01:00)
[2019-04-15 01:16] LABS: Basophils % 0.1 % (0.0-0.8); Hematocrit 29.7 VOL% (35.7-47.0); Hemoglobin 9.5 GM/DL (12.0-16.0); Immature Granulocytes % 7.3 %; Immature Granulocytes Absolute 3.43 #; Lymphocytes # 0.4 10*3/uL (1.4-4.0); Lymphocytes % 0.9 % (21.3-54.2); Mean Corpuscular Volume 93.4 FL (87-102); Monocytes % 3.2 % (1.7-12.7); Neutrophils % 88.5 % (38.7-73.9); Platelet Count 122 T/CUMM (130-400); Red Blood Count 3.18 MC/CUMM (3.8-5.5); Red Cell Distribution Width 14.9 % (9.3-17.3)
[2019-04-15 01:17] LABS: INR 1.9
[2019-04-15 01:18] LABS: Albumin 2.7 G/DL (3.4-5.0); Bilirubin,Total 0.6 MG/DL (0.2-1.0); Calcium 8.1 MG/DL (8.5-10.1); Osmolality,Calculated 314.5 MOS/KG (273-304); Total Protein 6.8 G/DL (6.4-8.3)
[2019-04-15 01:18] LABS: White Blood Count 47.1 T/CUMM (4-12)
[2019-04-15 01:19] LABS: Partial Thromboplastin Time 43.5 SECS (20.8-36.0)
[2019-04-15] MEDS: metroNIDAZOLE INJ 500 MG in PREMIX 1 EACH IV SCH ×3 (01:29→17:30)
[2019-04-15] MEDS: SODIUM CHLORIDE 0.9% 1,000 ML IV SCH ×3 (01:29→17:25)
[2019-04-15] MEDS ORDERED: MAGNESIUM SULF RIDER 4 GM in PREMIX 1 EACH IV PRN (02:02)
[2019-04-15] MEDS ORDERED: MAGNESIUM SULF RIDER 2 GM in PREMIX 1 EACH IV PRN (02:02)
[2019-04-15] MEDS: PIPERACILLIN/TAZOBACTAM 3,375 MG in SODIUM CHLORIDE 0.9% 100 ML IV SCH ×2 (02:10→12:42)
[2019-04-15 02:22] LABS: Band Neutrophils 19 % (0-10); Metamyelocytes 4 %; Platelet Estimate Decreased; Segmented Neutrophils 71 % (50-85); Total Cells Counted 100
[2019-04-15 02:27] LABS: Hypochromasia 2+
[2019-04-15] MEDS: OXYBUTYNIN 5 MG TABLET PO SCH ×3 (04:14→20:22)
[2019-04-15 04:41] LABS: Hematocrit 27.3 VOL% (35.7-47.0); Hemoglobin 8.8 GM/DL (12.0-16.0); Immature Granulocytes % 6.7 %; Lymphocytes # 0.4 10*3/uL (1.4-4.0); Lymphocytes % 0.9 % (21.3-54.2); Mean Corpuscular HGB Conc 32.2 GM/DL (32-36); Mean Corpuscular Volume 92.9 FL (87-102); Mean Platelet Volume 12.9 FL (9.6-12.0); Monocytes % 3.1 % (1.7-12.7); Neutrophils % 89.3 % (38.7-73.9); Platelet Count 132 T/CUMM (130-400); Red Blood Count 2.94 MC/CUMM (3.8-5.5); Red Cell Distribution Width 14.9 % (9.3-17.3)
[2019-04-15 04:50] LABS: Calcium 7.6 MG/DL (8.5-10.1); Osmolality,Calculated 320.1 MOS/KG (273-304); Risk Ratio 6.82; Thyroid Stimulating Hormone 2.16 uIU/ml (0.358-3.74)
[2019-04-15 04:54] LABS: White Blood Count 43.2 T/CUMM (4-12)
[2019-04-15 05:37] LABS: Band Neutrophils 9 % (0-10); Hypochromasia Slight; Platelet Estimate Decreased; Segmented Neutrophils 88 % (50-85); Total Cells Counted 100
[2019-04-15 09:47] LABS: Apearance,Urine CLOUDY (Clear); Bacteria,Urine Many /HPF (Few); Bilirubin,Urine Negative (Negative); Blood, Urine Large mg/dL (Negative); Glucose,Urine (UA) Negative (Negative); Ketones,Urine Negative (Negative); Nitrite,Urine Negative (Negative); Protein,Urine 100 MG/DL; RBC,Urine 18 /HPF (0-4); Urine Color Amber (Yellow); Urine Specific Gravity 1.013 (1.001-1.035); Urine Urobilinogen < 2.0 EU/DL (0.2-1.0); WBC,Urine 224 /HPF (0-6)
[2019-04-15] MEDS: PREGABALIN 25 MG CAPSULE PO SCH ×2 (12:43→20:22)
[2019-04-15] MEDS: NYSTATIN CREAM 15 GM TUBE TOP SCH ×2 (12:43→20:23)
[2019-04-15] MEDS: TIMOLOL 0.5% OPH SOLN 5 ML BOTTLE BOTH EYES SCH ×2 (13:20→20:23)
[2019-04-15] MEDS: ZINC OXIDE PASTE 113 GM TUBE TOP SCH (20:22)
[2019-04-16] MEDS: metroNIDAZOLE INJ 500 MG in PREMIX 1 EACH IV SCH ×3 (00:37→18:39)
[2019-04-16] MEDS: PIPERACILLIN/TAZOBACTAM 3,375 MG in SODIUM CHLORIDE 0.9% 100 ML IV SCH ×2 (00:37→14:41)
[2019-04-16] MEDS: MORPHINE 4 MG/1 ML VIAL IV PRN ×2 (01:41→05:22)
[2019-04-16 05:15] LABS: Basophils # 0.1 10*3/uL (0.0-0.2); Basophils % 0.2 % (0.0-0.8); Eosinophils % 0.1 % (0.00-10.9); Hemoglobin 8.6 GM/DL (12.0-16.0); Immature Granulocytes % 4.6 %; Immature Granulocytes Absolute 1.24 #; Lymphocytes # 0.5 10*3/uL (1.4-4.0); Lymphocytes % 1.7 % (21.3-54.2); Mean Corpuscular HGB Conc 31.9 GM/DL (32-36); Mean Corpuscular Volume 92.5 FL (87-102); Mean Platelet Volume 13.1 FL (9.6-12.0); Monocytes % 1.9 % (1.7-12.7); Neutrophils % 91.5 % (38.7-73.9); Platelet Count 110 T/CUMM (130-400); Red Blood Count 2.92 MC/CUMM (3.8-5.5); Red Cell Distribution Width 15.3 % (9.3-17.3); White Blood Count 26.9 T/CUMM (4-12)
[2019-04-16 05:50] LABS: Band Neutrophils 5 % (0-10); Hypochromasia Slight; Lymphocytes 3 % (20-55); Segmented Neutrophils 91 % (50-85); Total Cells Counted 100
[2019-04-16 05:51] LABS: Microcytosis Slight; Platelet Estimate Adequate
[2019-04-16 06:21] LABS: Calcium 8.1 MG/DL (8.5-10.1); Osmolality,Calculated 322.1 MOS/KG (273-304)
[2019-04-16 06:26] LABS: Troponin I 0.144 NG/ML (0.00-0.045)
[2019-04-16] MEDS: PREGABALIN 25 MG CAPSULE PO SCH ×2 (09:15→20:50)
[2019-04-16] MEDS: OXYBUTYNIN 5 MG TABLET PO SCH ×2 (09:20→20:52)
[2019-04-16] MEDS: TIMOLOL 0.5% OPH SOLN 5 ML BOTTLE BOTH EYES SCH (09:22)
[2019-04-16] MEDS: ZINC OXIDE PASTE 113 GM TUBE TOP SCH ×2 (09:29→20:56)
[2019-04-16] MEDS: NYSTATIN CREAM 15 GM TUBE TOP SCH ×2 (09:29→20:56)
[2019-04-16] MEDS: LEVOTHYROXINE 200 MCG TABLET PO SCH (11:11)
[2019-04-16] MEDS: ALLOPURINOL 300 MG TABLET PO SCH (11:12)
[2019-04-16] MEDS: ASPIRIN EC 81 MG TABLET PO SCH (11:12)
[2019-04-16] MEDS: SODIUM BICARBONATE 650 MG TABLET PO SCH ×2 (11:12→20:52)
[2019-04-16] MEDS: SODIUM CHLORIDE 0.9% 1,000 ML IV SCH (13:25)
[2019-04-16] MEDS: traMADol 50 MG TABLET PO PRN ×2 (14:39→20:50)
[2019-04-16] MEDS: LACTULOSE 20 GM/30 ML UDCUP PO PRN (14:41)
[2019-04-16] MEDS: WARFARIN 2.5 MG TABLET PO SCH (18:39)
[2019-04-17] MEDS: PIPERACILLIN/TAZOBACTAM 3,375 MG in SODIUM CHLORIDE 0.9% 100 ML IV SCH ×2 (01:25→14:25)
[2019-04-17] MEDS: metroNIDAZOLE INJ 500 MG in PREMIX 1 EACH IV SCH ×3 (01:25→17:07)
[2019-04-17] MEDS: TIMOLOL 0.5% OPH SOLN 5 ML BOTTLE BOTH EYES SCH ×3 (01:47→21:25)
[2019-04-17] MEDS: traMADol 50 MG TABLET PO PRN (04:36)
[2019-04-17 05:06] LABS: Basophils # 0.1 10*3/uL (0.0-0.2); Basophils % 0.3 % (0.0-0.8); Eosinophils # 0.2 10*3/uL (0.0-0.87); Eosinophils % 0.8 % (0.00-10.9); Hematocrit 26.2 VOL% (35.7-47.0); Hemoglobin 8.5 GM/DL (12.0-16.0); Immature Granulocytes Absolute 0.72 #; Lymphocytes # 0.5 10*3/uL (1.4-4.0); Lymphocytes % 1.9 % (21.3-54.2); Mean Corpuscular HGB Conc 32.4 GM/DL (32-36); Mean Corpuscular Volume 91.3 FL (87-102); Mean Platelet Volume 13.9 FL (9.6-12.0); Platelet Count 120 T/CUMM (130-400); Red Blood Count 2.87 MC/CUMM (3.8-5.5); Red Cell Distribution Width 15.7 % (9.3-17.3); White Blood Count 24.4 T/CUMM (4-12)
[2019-04-17 05:21] LABS: Calcium 8.2 MG/DL (8.5-10.1); Osmolality,Calculated 319.4 MOS/KG (273-304); PT Patient Result 21.2 SECS (9.6-12.2)
[2019-04-17 05:35] LABS: Anisocytosis 1+; Band Neutrophils 1 % (0-10); Eosinophils 1 % (0-10); Macrocytosis 1+; Segmented Neutrophils 94 % (50-85); Total Cells Counted 100
[2019-04-17 05:36] LABS: Lymphocytes 2 % (20-55); Platelet Estimate Decreased
[2019-04-17] MEDS: LEVOTHYROXINE 200 MCG TABLET PO SCH (10:20)
[2019-04-17] MEDS: ASPIRIN EC 81 MG TABLET PO SCH (10:20)
[2019-04-17] MEDS: PREGABALIN 25 MG CAPSULE PO SCH ×2 (10:20→21:24)
[2019-04-17] MEDS: ALLOPURINOL 300 MG TABLET PO SCH (10:20)
[2019-04-17] MEDS: OXYBUTYNIN 5 MG TABLET PO SCH ×2 (10:21→21:24)
[2019-04-17] MEDS: SODIUM BICARBONATE 650 MG TABLET PO SCH ×2 (10:21→21:24)
[2019-04-17] MEDS: NYSTATIN CREAM 15 GM TUBE TOP SCH ×2 (10:22→21:25)
[2019-04-17] MEDS: ZINC OXIDE PASTE 113 GM TUBE TOP SCH ×2 (10:22→21:25)
[2019-04-17] MEDS: SODIUM CHLORIDE 0.9% 1,000 ML IV SCH (12:50)
[2019-04-17] MEDS: ONDANSETRON 4 MG/2 ML VIAL IV PRN (14:25)
[2019-04-17] MEDS: WARFARIN 2.5 MG TABLET PO SCH (17:07)
[2019-04-18] MEDS: metroNIDAZOLE INJ 500 MG in PREMIX 1 EACH IV SCH (01:01)
[2019-04-18] MEDS: PIPERACILLIN/TAZOBACTAM 3,375 MG in SODIUM CHLORIDE 0.9% 100 ML IV SCH ×2 (02:16→13:03)
[2019-04-18 05:38] LABS: INR 2.1
[2019-04-18 05:43] LABS: PT Patient Result 23.2 SECS (9.6-12.2)
[2019-04-18] MEDS: ONDANSETRON 4 MG/2 ML VIAL IV PRN ×2 (07:48→11:03)
[2019-04-18] MEDS: SODIUM CHLORIDE 0.9% 1,000 ML IV SCH (07:55)
[2019-04-18 08:42] LABS: Basophils # 0.1 10*3/uL (0.0-0.2); Basophils % 0.4 % (0.0-0.8); Eosinophils # 0.1 10*3/uL (0.0-0.87); Eosinophils % 0.5 % (0.00-10.9); Hematocrit 27.6 VOL% (35.7-47.0); Hemoglobin 8.7 GM/DL (12.0-16.0); Immature Granulocytes % 1.3 %; Immature Granulocytes Absolute 0.33 #; Lymphocytes # 0.5 10*3/uL (1.4-4.0); Lymphocytes % 1.9 % (21.3-54.2); Mean Corpuscular HGB Conc 31.5 GM/DL (32-36); Mean Corpuscular Volume 92.6 FL (87-102); Mean Platelet Volume 13.5 FL (9.6-12.0); Monocytes % 3.7 % (1.7-12.7); Neutrophils % 92.2 % (38.7-73.9); Platelet Count 139 T/CUMM (130-400); Red Blood Count 2.98 MC/CUMM (3.8-5.5); Red Cell Distribution Width 16.2 % (9.3-17.3); White Blood Count 25.7 T/CUMM (4-12)
[2019-04-18] MEDS: LEVOTHYROXINE 200 MCG TABLET PO SCH (08:56)
[2019-04-18] MEDS: OXYBUTYNIN 5 MG TABLET PO SCH ×2 (08:56→21:25)
[2019-04-18] MEDS: ALLOPURINOL 300 MG TABLET PO SCH (08:56)
[2019-04-18] MEDS: ZINC OXIDE PASTE 113 GM TUBE TOP SCH ×2 (08:56→21:25)
[2019-04-18] MEDS: SODIUM BICARBONATE 650 MG TABLET PO SCH ×2 (08:56→21:25)
[2019-04-18] MEDS: ASPIRIN EC 81 MG TABLET PO SCH (08:56)
[2019-04-18] MEDS: NYSTATIN CREAM 15 GM TUBE TOP SCH ×2 (08:57→21:26)
[2019-04-18] MEDS: PREGABALIN 25 MG CAPSULE PO SCH ×2 (09:02→21:25)
[2019-04-18 09:03] LABS: Band Neutrophils 1 % (0-10); Hypochromasia 1+; Lymphocytes 4 % (20-55); Microcytosis Slight; Nucleated Red Blood Cells 1 (0-5); Platelet Estimate Adequate; Segmented Neutrophils 91 % (50-85); Total Cells Counted 100
[2019-04-18] MEDS: TIMOLOL 0.5% OPH SOLN 5 ML BOTTLE BOTH EYES SCH ×2 (09:03→21:26)
[2019-04-18 09:06] LABS: Calcium 8.2 MG/DL (8.5-10.1); Osmolality,Calculated 319.5 MOS/KG (273-304)
[2019-04-18] MEDS ORDERED: GLYCERIN ADULT SUPP RECTAL PRN (10:04)
[2019-04-18] MEDS ORDERED: PROMETHAZINE 25 MG/1 ML VIAL IM PRN (10:55)
[2019-04-18] MEDS: LACTULOSE 20 GM/30 ML UDCUP PO PRN ×2 (11:07→21:25)
[2019-04-18] MEDS: WARFARIN 2.5 MG TABLET PO SCH (17:13)
[2019-04-18] MEDS: traMADol 50 MG TABLET PO PRN (23:07)
[2019-04-19] MEDS: PIPERACILLIN/TAZOBACTAM 3,375 MG in SODIUM CHLORIDE 0.9% 100 ML IV SCH ×2 (01:04→21:20)
[2019-04-19 06:00] LABS: Basophils # 0.1 10*3/uL (0.0-0.2); Basophils % 0.4 % (0.0-0.8); Eosinophils # 0.3 10*3/uL (0.0-0.87); Eosinophils % 1.2 % (0.00-10.9); Hematocrit 28.4 VOL% (35.7-47.0); Immature Granulocytes % 1.7 %; Immature Granulocytes Absolute 0.42 #; Lymphocytes # 0.6 10*3/uL (1.4-4.0); Lymphocytes % 2.5 % (21.3-54.2); Mean Corpuscular HGB Conc 31.7 GM/DL (32-36); Mean Corpuscular Volume 91.9 FL (87-102); Mean Platelet Volume 13.4 FL (9.6-12.0); Monocytes % 5.3 % (1.7-12.7); Neutrophils % 88.9 % (38.7-73.9); Platelet Count 177 T/CUMM (130-400); Red Blood Count 3.09 MC/CUMM (3.8-5.5); Red Cell Distribution Width 16.4 % (9.3-17.3); White Blood Count 25.1 T/CUMM (4-12)
[2019-04-19 06:12] LABS: INR 2.7
[2019-04-19 06:18] LABS: Calcium 8.2 MG/DL (8.5-10.1); Osmolality,Calculated 328.1 MOS/KG (273-304)
[2019-04-19 06:23] LABS: Eosinophils 2 % (0-10); Hypochromasia 1+; Lymphocytes 5 % (20-55); Ovalocytes Slight; Platelet Estimate Adequate; Segmented Neutrophils 88 % (50-85); Total Cells Counted 100
[2019-04-19 06:24] LABS: Microcytosis Slight
[2019-04-19 06:32] LABS: Albumin 2.1 G/DL (3.4-5.0); Bilirubin,Direct 0.34 MG/DL (0.0-0.20); Bilirubin,Indirect 0.3 MG/DL (0.0-1.0); Bilirubin,Total 0.6 MG/DL (0.2-1.0); Total Protein 6.4 G/DL (6.4-8.3)
[2019-04-19] MEDS: ONDANSETRON 4 MG/2 ML VIAL IV PRN (07:34)
[2019-04-19] MEDS ORDERED: SODIUM CHLORIDE 0.9% 1,000 ML IV PRN (08:51)
[2019-04-19 08:55] LABS: Hepatitis B Core IgM Quant 0.23 Index; Hepatitis B Surface Ag Quant < 0.10 Index; Hepatitis B Surface Ag Result Negative (Negative); Hepatitis C Virus Ab Quant 0.06 Index; Hepatitis C Virus Ab Result Negative (Negative)
[2019-04-19] MEDS: SODIUM BICARBONATE 650 MG TABLET PO SCH ×2 (09:55→21:21)
[2019-04-19] MEDS: OXYBUTYNIN 5 MG TABLET PO SCH ×2 (09:56→21:21)
[2019-04-19] MEDS: ASPIRIN EC 81 MG TABLET PO SCH (09:56)
[2019-04-19] MEDS: ALLOPURINOL 300 MG TABLET PO SCH (09:56)
[2019-04-19] MEDS: NYSTATIN CREAM 15 GM TUBE TOP SCH ×2 (09:56→21:23)
[2019-04-19] MEDS: LEVOTHYROXINE 200 MCG TABLET PO SCH (09:56)
[2019-04-19] MEDS: ZINC OXIDE PASTE 113 GM TUBE TOP SCH ×2 (09:57→21:22)
[2019-04-19] MEDS: HEPARIN DRIP 25,000 UNITS/500 ML PREMIX IV SCH (09:57)
[2019-04-19] MEDS: TIMOLOL 0.5% OPH SOLN 5 ML BOTTLE BOTH EYES SCH ×2 (09:57→21:23)
[2019-04-19] MEDS: PREGABALIN 25 MG CAPSULE PO SCH ×2 (10:19→21:33)
[2019-04-19] MEDS: traMADol 50 MG TABLET PO PRN (16:51)
[2019-04-19] MEDS: SODIUM CHLORIDE 0.9% 1,000 ML IV SCH ×2 (22:38)
[2019-04-20] MEDS: HEPARIN DRIP 25,000 UNITS/500 ML PREMIX IV SCH ×3 (03:48→23:50)
[2019-04-20] MEDS: MORPHINE 4 MG/1 ML VIAL IV PRN (04:18)
[2019-04-20 05:57] LABS: INR 2.8
[2019-04-20 06:08] LABS: Calcium 7.9 MG/DL (8.5-10.1); Osmolality,Calculated 332.1 MOS/KG (273-304)
[2019-04-20 07:52] LABS: Basophils # 0.1 10*3/uL (0.0-0.2); Basophils % 0.3 % (0.0-0.8); Eosinophils # 0.6 10*3/uL (0.0-0.87); Eosinophils % 2.5 % (0.00-10.9); Hemoglobin 8.1 GM/DL (12.0-16.0); Immature Granulocytes % 3.7 %; Immature Granulocytes Absolute 0.88 #; Lymphocytes % 4.4 % (21.3-54.2); Mean Corpuscular HGB Conc 31.2 GM/DL (32-36); Mean Corpuscular Volume 93.9 FL (87-102); Mean Platelet Volume 12.9 FL (9.6-12.0); Monocytes % 7.7 % (1.7-12.7); NRBC # 0.02 10*3/uL; Neutrophils % 81.4 % (38.7-73.9); Platelet Count 173 T/CUMM (130-400); Red Blood Count 2.77 MC/CUMM (3.8-5.5); Red Cell Distribution Width 16.7 % (9.3-17.3); White Blood Count 23.6 T/CUMM (4-12)
[2019-04-20 08:20] LABS: Eosinophils 1 % (0-10); Hypochromasia 1+; Lymphocytes 3 % (20-55); Microcytosis Slight; Nucleated Red Blood Cells 1 (0-5); Ovalocytes Slight; Platelet Estimate Adequate; Segmented Neutrophils 88 % (50-85); Total Cells Counted 100
[2019-04-20] MEDS: OXYBUTYNIN 5 MG TABLET PO SCH ×2 (09:10→20:49)
[2019-04-20] MEDS: ASPIRIN EC 81 MG TABLET PO SCH (09:10)
[2019-04-20] MEDS: ALLOPURINOL 300 MG TABLET PO SCH (09:10)
[2019-04-20] MEDS: PIPERACILLIN/TAZOBACTAM 3,375 MG in SODIUM CHLORIDE 0.9% 100 ML IV SCH ×2 (09:11→20:48)
[2019-04-20] MEDS: SODIUM BICARBONATE 650 MG TABLET PO SCH ×2 (09:11→20:49)
[2019-04-20] MEDS: TIMOLOL 0.5% OPH SOLN 5 ML BOTTLE BOTH EYES SCH ×2 (09:12→20:48)
[2019-04-20] MEDS: LEVOTHYROXINE 200 MCG TABLET PO SCH (09:13)
[2019-04-20] MEDS: NYSTATIN CREAM 15 GM TUBE TOP SCH ×2 (09:13→20:51)
[2019-04-20] MEDS: ZINC OXIDE PASTE 113 GM TUBE TOP SCH ×2 (09:13→20:50)
[2019-04-20] MEDS: PREGABALIN 25 MG CAPSULE PO SCH ×2 (09:20→20:50)
[2019-04-20] MEDS: traMADol 50 MG TABLET PO PRN (12:30)
[2019-04-20] MEDS: SODIUM CHLORIDE 0.9% 1,000 ML IV SCH (19:31)
[2019-04-21 01:04] LABS: INR 3.7
[2019-04-21 01:05] LABS: PT Patient Result 39.6 SECS (9.6-12.2)
[2019-04-21 02:26] LABS: Basophils # 0.1 10*3/uL (0.0-0.2); Basophils % 0.5 % (0.0-0.8); Eosinophils # 0.7 10*3/uL (0.0-0.87); Eosinophils % 2.9 % (0.00-10.9); Hematocrit 21.8 VOL% (35.7-47.0); Hemoglobin 6.8 GM/DL (12.0-16.0); Immature Granulocytes % 7.3 %; Immature Granulocytes Absolute 1.64 #; Lymphocytes # 0.9 10*3/uL (1.4-4.0); Mean Corpuscular HGB Conc 31.2 GM/DL (32-36); Mean Corpuscular Volume 93.2 FL (87-102); Mean Platelet Volume 12.3 FL (9.6-12.0); Monocytes % 8.1 % (1.7-12.7); NRBC # 0.06 10*3/uL; Neutrophils % 77.2 % (38.7-73.9); Platelet Count 186 T/CUMM (130-400); Red Blood Count 2.34 MC/CUMM (3.8-5.5); Red Cell Distribution Width 16.7 % (9.3-17.3); White Blood Count 22.4 T/CUMM (4-12)
[2019-04-21 02:42] LABS: Calcium 7.4 MG/DL (8.5-10.1); Osmolality,Calculated 340.1 MOS/KG (273-304)
[2019-04-21 02:48] LABS: INR 3.8
[2019-04-21 02:49] LABS: PT Patient Result 41.2 SECS (9.6-12.2); Partial Thromboplastin Time 89.9 SECS (20.8-36.0)
[2019-04-21 03:05] LABS: Eosinophils 3 % (0-10); Lymphocytes 5 % (20-55); Nucleated Red Blood Cells 1 (0-5); Segmented Neutrophils 85 % (50-85); Total Cells Counted 100
[2019-04-21 03:06] LABS: Hypochromasia 1+
[2019-04-21 03:07] LABS: Giant Platelets Few; Platelet Estimate Normal
[2019-04-21] MEDS ORDERED: SODIUM CHLORIDE 0.9% 1,000 ML IV PRN (07:20)
[2019-04-21 08:12] LABS: Albumin 1.8 G/DL (3.4-5.0); Bilirubin,Direct 0.2 MG/DL (0.0-0.20); Bilirubin,Indirect 0.3 MG/DL (0.0-1.0); Bilirubin,Total 0.5 MG/DL (0.2-1.0); Total Protein 5.6 G/DL (6.4-8.3)
[2019-04-21] MEDS: ALLOPURINOL 300 MG TABLET PO SCH (09:55)
[2019-04-21] MEDS: SODIUM BICARBONATE 650 MG TABLET PO SCH ×2 (09:55→21:11)
[2019-04-21] MEDS: OXYBUTYNIN 5 MG TABLET PO SCH ×2 (09:55→21:11)
[2019-04-21] MEDS: PREGABALIN 25 MG CAPSULE PO SCH ×2 (09:55→21:11)
[2019-04-21] MEDS: ASPIRIN EC 81 MG TABLET PO SCH (09:55)
[2019-04-21] MEDS: LEVOTHYROXINE 200 MCG TABLET PO SCH (09:55)
[2019-04-21] MEDS: PIPERACILLIN/TAZOBACTAM 3,375 MG in SODIUM CHLORIDE 0.9% 100 ML IV SCH ×2 (09:56→21:10)
[2019-04-21] MEDS: TIMOLOL 0.5% OPH SOLN 5 ML BOTTLE BOTH EYES SCH ×2 (10:02→21:12)
[2019-04-21] MEDS: ZINC OXIDE PASTE 113 GM TUBE TOP SCH ×2 (10:03→21:12)
[2019-04-21] MEDS: NYSTATIN CREAM 15 GM TUBE TOP SCH ×2 (10:03→21:12)
[2019-04-21] MEDS: SODIUM CHLORIDE 0.9% 1,000 ML IV SCH (14:32)
[2019-04-21 19:56] LABS: Hematocrit 25.5 VOL% (35.7-47.0)
[2019-04-21 20:16] LABS: INR 3.6
[2019-04-21 20:21] LABS: PT Patient Result 38.6 SECS (9.6-12.2)
[2019-04-21] MEDS ORDERED: PHYTONADIONE 5 MG/5 ML ORAL.SYR PO ONE (22:30)
[2019-04-22 06:29] LABS: Basophils # 0.2 10*3/uL (0.0-0.2); Basophils % 0.6 % (0.0-0.8); Eosinophils # 0.7 10*3/uL (0.0-0.87); Eosinophils % 2.6 % (0.00-10.9); Hematocrit 23.2 VOL% (35.7-47.0); Hemoglobin 7.6 GM/DL (12.0-16.0); Immature Granulocytes % 7.9 %; Immature Granulocytes Absolute 2.04 #; Lymphocytes % 3.8 % (21.3-54.2); Mean Corpuscular HGB Conc 32.8 GM/DL (32-36); Mean Corpuscular Volume 92.4 FL (87-102); Mean Platelet Volume 12.6 FL (9.6-12.0); Monocytes % 7.8 % (1.7-12.7); NRBC # 0.11 10*3/uL; Neutrophils % 77.3 % (38.7-73.9); Platelet Count 201 T/CUMM (130-400); Red Blood Count 2.51 MC/CUMM (3.8-5.5); Red Cell Distribution Width 16.1 % (9.3-17.3); White Blood Count 25.8 T/CUMM (4-12)
[2019-04-22 06:36] LABS: INR 3.2; PT Patient Result 34.4 SECS (9.6-12.2)
[2019-04-22 06:44] LABS: Calcium 7.4 MG/DL (8.5-10.1)
[2019-04-22 06:54] LABS: Band Neutrophils 3 % (0-10); Eosinophils 5 % (0-10); Hypochromasia 1+; Lymphocytes 5 % (20-55); Platelet Estimate Adequate; Segmented Neutrophils 81 % (50-85); Total Cells Counted 100
[2019-04-22 06:55] LABS: Microcytosis Slight
[2019-04-22] MEDS ORDERED: SODIUM CHLORIDE 0.9% 1,000 ML IV PRN ×3 (07:19→17:23)
[2019-04-22] MEDS: OXYBUTYNIN 5 MG TABLET PO SCH ×2 (09:06→21:04)
[2019-04-22] MEDS: ALLOPURINOL 300 MG TABLET PO SCH (09:06)
[2019-04-22] MEDS: NYSTATIN CREAM 15 GM TUBE TOP SCH ×2 (09:06→21:04)
[2019-04-22] MEDS: SODIUM BICARBONATE 650 MG TABLET PO SCH ×2 (09:06→21:04)
[2019-04-22] MEDS: ASPIRIN EC 81 MG TABLET PO SCH (09:06)
[2019-04-22] MEDS: PREGABALIN 25 MG CAPSULE PO SCH ×2 (09:06→21:04)
[2019-04-22] MEDS: LEVOTHYROXINE 200 MCG TABLET PO SCH (09:06)
[2019-04-22] MEDS: ZINC OXIDE PASTE 113 GM TUBE TOP SCH ×2 (09:07→21:04)
[2019-04-22] MEDS: TIMOLOL 0.5% OPH SOLN 5 ML BOTTLE BOTH EYES SCH ×2 (09:07→21:04)
[2019-04-22] MEDS: traMADol 50 MG TABLET PO PRN (11:15)
[2019-04-22 14:46] LABS: Hemoglobin 8.4 GM/DL (12.0-16.0)
[2019-04-22] MEDS ORDERED: PHYTONADIONE 5 MG/5 ML ORAL.SYR PO ONE (16:03)
[2019-04-22] MEDS: SODIUM CHLORIDE 0.9% 1,000 ML IV SCH (17:19)
[2019-04-23 01:19] LABS: INR 1.2
[2019-04-23 01:21] LABS: Calcium 7.7 MG/DL (8.5-10.1); Osmolality,Calculated 350.7 MOS/KG (273-304)
[2019-04-23 01:35] LABS: Basophils # 0.1 10*3/uL (0.0-0.2); Basophils % 0.4 % (0.0-0.8); Eosinophils # 0.6 10*3/uL (0.0-0.87); Eosinophils % 2.3 % (0.00-10.9); Hematocrit 24.7 VOL% (35.7-47.0); Hemoglobin 8.1 GM/DL (12.0-16.0); Immature Granulocytes % 8.2 %; Immature Granulocytes Absolute 2.05 #; Lymphocytes # 0.9 10*3/uL (1.4-4.0); Lymphocytes % 3.5 % (21.3-54.2); Mean Corpuscular HGB Conc 32.8 GM/DL (32-36); Mean Corpuscular Volume 90.8 FL (87-102); Mean Platelet Volume 12.8 FL (9.6-12.0); Neutrophils % 77.6 % (38.7-73.9); Platelet Count 201 T/CUMM (130-400); Red Blood Count 2.72 MC/CUMM (3.8-5.5); Red Cell Distribution Width 15.9 % (9.3-17.3); White Blood Count 24.9 T/CUMM (4-12)
[2019-04-23 04:15] LABS: Anisocytosis 1+; Band Neutrophils 4 % (0-10); Eosinophils 5 % (0-10); Hypochromasia 1+; Lymphocytes 4 % (20-55); Microcytosis 1+; Platelet Estimate Adequate; Segmented Neutrophils 80 % (50-85); Total Cells Counted 100
[2019-04-23] MEDS: LEVOTHYROXINE 200 MCG TABLET PO SCH (06:31)
[2019-04-23 08:14] LABS: Hematocrit 25.4 VOL% (35.7-47.0); Hemoglobin 8.2 GM/DL (12.0-16.0)
[2019-04-23] MEDS ORDERED: HEPARIN 5,000 UNIT/1 ML VIAL ONE (10:13)
[2019-04-23] MEDS ORDERED: BUPIVACAINE 0.25% /EPI 10 ML VIAL ONE (10:13)
[2019-04-23] MEDS ORDERED: LIDOCAINE 1% 20 ML VIAL ONE (10:13)
[2019-04-23] MEDS: SODIUM CHLORIDE 0.9% 1,000 ML IV SCH (10:21)
[2019-04-23] MEDS ORDERED: ceFAZolin 1,000 MG VIAL ONE (10:33)
[2019-04-23] MEDS ORDERED: PROPOFOL 200 MG/20 ML VIAL IV ONE (11:00)
[2019-04-23] MEDS ORDERED: ETOMIDATE 40 MG/20 ML VIAL IV ONE (11:00)
[2019-04-23] MEDS ORDERED: ONDANSETRON 4 MG/2 ML VIAL IV PRN (11:13)
[2019-04-23] MEDS ORDERED: HYDROmorphone 2 MG/1 ML VIAL IV PRN (11:13)
[2019-04-23] MEDS ORDERED: HYDROmorphone 2 MG/1 ML VIAL ONE (11:14)
[2019-04-23] MEDS ORDERED: ONDANSETRON 4 MG/2 ML VIAL ONE (11:14)
[2019-04-23] MEDS: OXYBUTYNIN 5 MG TABLET PO SCH ×2 (13:10→21:30)
[2019-04-23] MEDS: PREGABALIN 25 MG CAPSULE PO SCH ×2 (13:10→21:30)
[2019-04-23] MEDS: ALLOPURINOL 300 MG TABLET PO SCH (13:10)
[2019-04-23] MEDS: SODIUM BICARBONATE 650 MG TABLET PO SCH ×2 (13:10→21:30)
[2019-04-23] MEDS: ZINC OXIDE PASTE 113 GM TUBE TOP SCH ×2 (13:11→21:36)
[2019-04-23] MEDS: TIMOLOL 0.5% OPH SOLN 5 ML BOTTLE BOTH EYES SCH ×2 (13:11→21:36)
[2019-04-23] MEDS: NYSTATIN CREAM 15 GM TUBE TOP SCH ×2 (13:11→21:35)
[2019-04-23] MEDS: ASPIRIN EC 81 MG TABLET PO SCH (13:14)
[2019-04-23 14:06] LABS: Hematocrit 23.8 VOL% (35.7-47.0); Hemoglobin 7.8 GM/DL (12.0-16.0)
[2019-04-23] MEDS ORDERED: HEPARIN 10,000 UNIT/10 ML VIAL IV PRN (14:36)
[2019-04-23] MEDS: traMADol 50 MG TABLET PO PRN (22:06)
[2019-04-24] MEDS ORDERED: traMADol 50 MG TABLET PO PRN (06:16)
[2019-04-24] MEDS: LEVOTHYROXINE 200 MCG TABLET PO SCH (06:30)
[2019-04-24] MEDS: traMADol 50 MG TABLET PO PRN ×2 (06:32→16:32)
[2019-04-24 07:06] LABS: Basophils # 0.1 10*3/uL (0.0-0.2); Basophils % 0.2 % (0.0-0.8); Eosinophils # 0.4 10*3/uL (0.0-0.87); Eosinophils % 1.6 % (0.00-10.9); Hematocrit 20.7 VOL% (35.7-47.0); Hemoglobin 6.8 GM/DL (12.0-16.0); Immature Granulocytes % 8.1 %; Immature Granulocytes Absolute 2.15 #; Lymphocytes # 1.1 10*3/uL (1.4-4.0); Lymphocytes % 4.1 % (21.3-54.2); Mean Corpuscular HGB Conc 32.9 GM/DL (32-36); Mean Corpuscular Volume 91.6 FL (87-102); Mean Platelet Volume 12.6 FL (9.6-12.0); NRBC # 0.23 10*3/uL; Platelet Count 220 T/CUMM (130-400); Red Blood Count 2.26 MC/CUMM (3.8-5.5); Red Cell Distribution Width 16.1 % (9.3-17.3); White Blood Count 26.6 T/CUMM (4-12)
[2019-04-24 07:29] LABS: Calcium 7.7 MG/DL (8.5-10.1); Osmolality,Calculated 333.7 MOS/KG (273-304)
[2019-04-24 07:37] LABS: Burr Cells Few; Eosinophils 1 % (0-10); Lymphocytes 4 % (20-55); Metamyelocytes 2 %; Microcytosis Slight; Ovalocytes Few; Platelet Estimate Normal; Polychromasia Slight; Segmented Neutrophils 91 % (50-85); Total Cells Counted 100
[2019-04-24] MEDS ORDERED: SODIUM CHLORIDE 0.9% 1,000 ML IV PRN (09:10)
[2019-04-24] MEDS: ASPIRIN EC 81 MG TABLET PO SCH (09:54)
[2019-04-24] MEDS: ALLOPURINOL 300 MG TABLET PO SCH (09:54)
[2019-04-24] MEDS: OXYBUTYNIN 5 MG TABLET PO SCH ×2 (09:55→20:39)
[2019-04-24] MEDS: PREGABALIN 25 MG CAPSULE PO SCH ×2 (09:55→20:39)
[2019-04-24] MEDS: SODIUM BICARBONATE 650 MG TABLET PO SCH ×2 (09:55→20:39)
[2019-04-24] MEDS: ZINC OXIDE PASTE 113 GM TUBE TOP SCH ×2 (09:56→20:39)
[2019-04-24] MEDS: NYSTATIN CREAM 15 GM TUBE TOP SCH ×2 (09:57→20:39)
[2019-04-24] MEDS: TIMOLOL 0.5% OPH SOLN 5 ML BOTTLE BOTH EYES SCH ×2 (09:57→20:39)
[2019-04-24 15:29] LABS: Hematocrit 22.2 VOL% (35.7-47.0); Hemoglobin 7.2 GM/DL (12.0-16.0)
[2019-04-24 19:52] LABS: Hematocrit 26.5 VOL% (35.7-47.0); Hemoglobin 8.6 GM/DL (12.0-16.0)
[2019-04-25] MEDS: SODIUM CHLORIDE 0.9% 1,000 ML IV SCH ×2 (00:52→23:41)
[2019-04-25 04:37] LABS: Basophils # 0.1 10*3/uL (0.0-0.2); Basophils % 0.3 % (0.0-0.8); Eosinophils # 0.4 10*3/uL (0.0-0.87); Eosinophils % 1.6 % (0.00-10.9); Hematocrit 23.6 VOL% (35.7-47.0); Hemoglobin 7.6 GM/DL (12.0-16.0); Immature Granulocytes % 7.3 %; Immature Granulocytes Absolute 1.79 #; Lymphocytes % 4.2 % (21.3-54.2); Mean Corpuscular HGB Conc 32.2 GM/DL (32-36); Mean Corpuscular Volume 90.4 FL (87-102); Mean Platelet Volume 12.3 FL (9.6-12.0); Neutrophils % 78.6 % (38.7-73.9); Platelet Count 224 T/CUMM (130-400); Red Blood Count 2.61 MC/CUMM (3.8-5.5); Red Cell Distribution Width 16.4 % (9.3-17.3); White Blood Count 24.6 T/CUMM (4-12)
[2019-04-25 04:53] LABS: PT Patient Result 10.4 SECS (9.6-12.2)
[2019-04-25 05:00] LABS: Band Neutrophils 1 % (0-10); Eosinophils 4 % (0-10); Hypochromasia 1+; Lymphocytes 5 % (20-55); Nucleated Red Blood Cells 1 (0-5); Platelet Estimate Adequate; Segmented Neutrophils 79 % (50-85); Total Cells Counted 100
[2019-04-25 05:01] LABS: Microcytosis Slight
[2019-04-25 05:16] LABS: Calcium 7.4 MG/DL (8.5-10.1); Osmolality,Calculated 341.3 MOS/KG (273-304)
[2019-04-25] MEDS ORDERED: SODIUM CHLORIDE 0.9% 1,000 ML IV PRN (08:56)
[2019-04-25] MEDS ORDERED: LIDOCAINE 2% 5 ML VIAL ONE (10:00)
[2019-04-25] MEDS ORDERED: PROPOFOL 200 MG/20 ML VIAL IV ONE (10:00)
[2019-04-25] MEDS: LEVOTHYROXINE 200 MCG TABLET PO SCH (15:08)
[2019-04-25] MEDS: SODIUM BICARBONATE 650 MG TABLET PO SCH ×2 (15:10→21:30)
[2019-04-25] MEDS: ASPIRIN EC 81 MG TABLET PO SCH (15:10)
[2019-04-25] MEDS: OXYBUTYNIN 5 MG TABLET PO SCH ×2 (15:10→21:30)
[2019-04-25] MEDS: PREGABALIN 25 MG CAPSULE PO SCH ×2 (15:10→21:30)
[2019-04-25] MEDS: ALLOPURINOL 300 MG TABLET PO SCH (15:11)
[2019-04-25] MEDS: TIMOLOL 0.5% OPH SOLN 5 ML BOTTLE BOTH EYES SCH ×2 (15:50→21:30)
[2019-04-25] MEDS: ZINC OXIDE PASTE 113 GM TUBE TOP SCH ×2 (15:51→21:30)
[2019-04-25] MEDS: NYSTATIN CREAM 15 GM TUBE TOP SCH ×2 (15:51→21:30)
[2019-04-26 06:06] LABS: Basophils # 0.1 10*3/uL (0.0-0.2); Basophils % 0.2 % (0.0-0.8); Eosinophils # 0.4 10*3/uL (0.0-0.87); Eosinophils % 1.7 % (0.00-10.9); Hematocrit 25.3 VOL% (35.7-47.0); Hemoglobin 8.3 GM/DL (12.0-16.0); Immature Granulocytes % 5.1 %; Immature Granulocytes Absolute 1.23 #; Lymphocytes # 1.2 10*3/uL (1.4-4.0); Mean Corpuscular HGB Conc 32.8 GM/DL (32-36); Mean Corpuscular Volume 90.4 FL (87-102); Mean Platelet Volume 12.2 FL (9.6-12.0); Monocytes % 10.6 % (1.7-12.7); NRBC # 0.12 10*3/uL; Neutrophils % 77.4 % (38.7-73.9); Platelet Count 243 T/CUMM (130-400); Red Cell Distribution Width 16.1 % (9.3-17.3); White Blood Count 24.3 T/CUMM (4-12)
[2019-04-26 06:26] LABS: Calcium 7.9 MG/DL (8.5-10.1); Osmolality,Calculated 309.7 MOS/KG (273-304)
[2019-04-26 06:28] LABS: Band Neutrophils 2 % (0-10); Eosinophils 1 % (0-10); Hypochromasia 1+; Lymphocytes 3 % (20-55); Nucleated Red Blood Cells 1 (0-5); Platelet Estimate Adequate; Segmented Neutrophils 88 % (50-85); Total Cells Counted 100
[2019-04-26 06:29] LABS: Microcytosis Slight
[2019-04-26] MEDS: traMADol 50 MG TABLET PO PRN (11:59)
[2019-04-26] MEDS ORDERED: PANTOPRAZOLE 40 MG TABLET PO SCH (13:30)
[2019-04-26] MEDS ORDERED: EPINEPHrine 1 MG/ML VIAL IM PRN (14:01)
[2019-04-26] MEDS: LANSOPRAZOLE ODT 30 MG TABLET PO SCH ×2 (15:50→23:17)
[2019-04-26] MEDS: amLODIPine 5 MG TABLET PO SCH (15:53)
[2019-04-26] MEDS: ALLOPURINOL 300 MG TABLET PO SCH (15:53)
[2019-04-26] MEDS: ASPIRIN EC 81 MG TABLET PO SCH (15:53)
[2019-04-26] MEDS: TIMOLOL 0.5% OPH SOLN 5 ML BOTTLE BOTH EYES SCH ×2 (15:54→23:17)
[2019-04-26] MEDS: SODIUM BICARBONATE 650 MG TABLET PO SCH ×2 (16:40→23:17)
[2019-04-26] MEDS: NYSTATIN CREAM 15 GM TUBE TOP SCH ×2 (16:40→23:17)
[2019-04-26] MEDS: PREGABALIN 25 MG CAPSULE PO SCH ×2 (16:40→23:17)
[2019-04-26] MEDS: OXYBUTYNIN 5 MG TABLET PO SCH ×2 (16:40→23:17)
[2019-04-26] MEDS: ZINC OXIDE PASTE 113 GM TUBE TOP SCH ×2 (16:40→23:17)
[2019-04-26] MEDS: LEVOTHYROXINE 200 MCG TABLET PO SCH (16:42)
[2019-04-27] MEDS: traMADol 50 MG TABLET PO PRN (00:25)
[2019-04-27 04:44] LABS: Basophils # 0.1 10*3/uL (0.0-0.2); Basophils % 0.5 % (0.0-0.8); Eosinophils # 0.6 10*3/uL (0.0-0.87); Eosinophils % 2.2 % (0.00-10.9); Hematocrit 26.6 VOL% (35.7-47.0); Hemoglobin 8.6 GM/DL (12.0-16.0); Immature Granulocytes Absolute 1.03 #; Lymphocytes # 1.1 10*3/uL (1.4-4.0); Lymphocytes % 4.4 % (21.3-54.2); Mean Corpuscular HGB Conc 32.3 GM/DL (32-36); Mean Corpuscular Volume 92.4 FL (87-102); Mean Platelet Volume 12.2 FL (9.6-12.0); Monocytes % 11.5 % (1.7-12.7); NRBC # 0.03 10*3/uL; Neutrophils % 77.4 % (38.7-73.9); Platelet Count 274 T/CUMM (130-400); Red Blood Count 2.88 MC/CUMM (3.8-5.5); Red Cell Distribution Width 16.5 % (9.3-17.3); White Blood Count 25.8 T/CUMM (4-12)
[2019-04-27 05:10] LABS: Calcium 7.8 MG/DL (8.5-10.1); Osmolality,Calculated 284.5 MOS/KG (273-304)
[2019-04-27 05:14] LABS: Eosinophils 6 % (0-10); Lymphocytes 5 % (20-55); Segmented Neutrophils 76 % (50-85); Total Cells Counted 100
[2019-04-27 05:15] LABS: Hypochromasia 1+; Microcytosis Slight; Platelet Estimate Adequate
[2019-04-27] MEDS: LEVOTHYROXINE 200 MCG TABLET PO SCH (09:41)
[2019-04-27] MEDS: ALLOPURINOL 300 MG TABLET PO SCH (09:42)
[2019-04-27] MEDS: amLODIPine 5 MG TABLET PO SCH (09:42)
[2019-04-27] MEDS: SODIUM BICARBONATE 650 MG TABLET PO SCH ×2 (09:42→21:41)
[2019-04-27] MEDS: ASPIRIN EC 81 MG TABLET PO SCH (09:43)
[2019-04-27] MEDS: OXYBUTYNIN 5 MG TABLET PO SCH ×2 (09:43→21:41)
[2019-04-27] MEDS: PREGABALIN 25 MG CAPSULE PO SCH (09:43)
[2019-04-27] MEDS: TIMOLOL 0.5% OPH SOLN 5 ML BOTTLE BOTH EYES SCH ×2 (09:44→21:43)
[2019-04-27] MEDS: NYSTATIN CREAM 15 GM TUBE TOP SCH ×2 (09:44→21:43)
[2019-04-27] MEDS: ZINC OXIDE PASTE 113 GM TUBE TOP SCH ×2 (09:44→21:43)
[2019-04-27] MEDS: LANSOPRAZOLE ODT 30 MG TABLET PO SCH ×2 (09:46→21:41)
[2019-04-27] MEDS: PREGABALIN 50 MG CAPSULE PO SCH ×2 (09:48→21:41)
[2019-04-27] MEDS ORDERED: TUBERCULIN SKIN TEST 0.1 ML SYRINGE INTRADERM ONE (13:00)
[2019-04-27 15:07] LABS: Apearance,Urine Slightly Hazy (Clear); Bacteria,Urine Occasional /HPF (Few); Bilirubin,Urine Negative (Negative); Blood, Urine Small mg/dL (Negative); Glucose,Urine (UA) 150 mg/dL (Negative); Granular Casts,Urine 6 /LPF (0-1); Ketones,Urine 5 mg/dL (Negative); Nitrite,Urine Negative (Negative); Protein,Urine 100 MG/DL; RBC,Urine 4 /HPF (0-4); Squamous Epithelial Cell,Urine Occasional /HPF (0-10); Urine Color Yellow (Yellow); Urine Specific Gravity 1.012 (1.001-1.035); Urine Urobilinogen < 2.0 EU/DL (0.2-1.0); WBC,Urine 7 /HPF (0-6)
[2019-04-28 04:50] LABS: Basophils # 0.1 10*3/uL (0.0-0.2); Basophils % 0.4 % (0.0-0.8); Eosinophils # 0.7 10*3/uL (0.0-0.87); Eosinophils % 3.2 % (0.00-10.9); Hematocrit 25.7 VOL% (35.7-47.0); Hemoglobin 8.2 GM/DL (12.0-16.0); Immature Granulocytes % 2.8 %; Immature Granulocytes Absolute 0.63 #; Lymphocytes # 0.9 10*3/uL (1.4-4.0); Lymphocytes % 4.1 % (21.3-54.2); Mean Corpuscular HGB Conc 31.9 GM/DL (32-36); Mean Corpuscular Volume 93.1 FL (87-102); Mean Platelet Volume 12.6 FL (9.6-12.0); Monocytes % 10.9 % (1.7-12.7); NRBC # 0.02 10*3/uL; Neutrophils % 78.6 % (38.7-73.9); Platelet Count 303 T/CUMM (130-400); Red Blood Count 2.76 MC/CUMM (3.8-5.5); Red Cell Distribution Width 16.9 % (9.3-17.3); White Blood Count 22.9 T/CUMM (4-12)
[2019-04-28 05:18] LABS: Eosinophils 3 % (0-10); Hypochromasia Slight; Lymphocytes 10 % (20-55); Segmented Neutrophils 77 % (50-85); Total Cells Counted 100
[2019-04-28 05:19] LABS: Calcium 7.8 MG/DL (8.5-10.1); Microcytosis 1+; Osmolality,Calculated 283.5 MOS/KG (273-304); Platelet Estimate Normal; Polychromasia Slight
[2019-04-28] MEDS: ALLOPURINOL 300 MG TABLET PO SCH (08:39)
[2019-04-28] MEDS: SODIUM BICARBONATE 650 MG TABLET PO SCH ×2 (08:39→20:32)
[2019-04-28] MEDS: PREGABALIN 50 MG CAPSULE PO SCH ×2 (08:39→20:33)
[2019-04-28] MEDS: LEVOTHYROXINE 200 MCG TABLET PO SCH (08:40)
[2019-04-28] MEDS: OXYBUTYNIN 5 MG TABLET PO SCH ×2 (08:40→20:33)
[2019-04-28] MEDS: ASPIRIN EC 81 MG TABLET PO SCH (08:40)
[2019-04-28] MEDS: amLODIPine 5 MG TABLET PO SCH (08:40)
[2019-04-28] MEDS: ZINC OXIDE PASTE 113 GM TUBE TOP SCH ×2 (08:40→20:34)
[2019-04-28] MEDS: NYSTATIN CREAM 15 GM TUBE TOP SCH ×2 (08:41→20:34)
[2019-04-28] MEDS: TIMOLOL 0.5% OPH SOLN 5 ML BOTTLE BOTH EYES SCH ×2 (08:41→20:34)
[2019-04-28] MEDS: LANSOPRAZOLE ODT 30 MG TABLET PO SCH ×2 (08:41→20:32)
[2019-04-29 04:17] LABS: Basophils # 0.1 10*3/uL (0.0-0.2); Basophils % 0.5 % (0.0-0.8); Eosinophils # 0.7 10*3/uL (0.0-0.87); Eosinophils % 3.7 % (0.00-10.9); Hematocrit 26.3 VOL% (35.7-47.0); Hemoglobin 8.3 GM/DL (12.0-16.0); Lymphocytes # 0.9 10*3/uL (1.4-4.0); Lymphocytes % 4.8 % (21.3-54.2); Mean Corpuscular HGB Conc 31.6 GM/DL (32-36); Mean Corpuscular Volume 94.3 FL (87-102); Mean Platelet Volume 11.9 FL (9.6-12.0); Monocytes % 11.8 % (1.7-12.7); Neutrophils % 77.2 % (38.7-73.9); Platelet Count 323 T/CUMM (130-400); Red Blood Count 2.79 MC/CUMM (3.8-5.5); Red Cell Distribution Width 16.8 % (9.3-17.3); White Blood Count 19.7 T/CUMM (4-12)
[2019-04-29 04:39] LABS: Eosinophils 3 % (0-10); Hypochromasia 1+; Lymphocytes 2 % (20-55); Platelet Estimate Adequate; Segmented Neutrophils 86 % (50-85); Total Cells Counted 100
[2019-04-29 04:40] LABS: Microcytosis 1+
[2019-04-29 04:56] LABS: Calcium 7.5 MG/DL (8.5-10.1); Osmolality,Calculated 282.7 MOS/KG (273-304)
[2019-04-29] MEDS: LANSOPRAZOLE ODT 30 MG TABLET PO SCH (09:04)
[2019-04-29] MEDS: PREGABALIN 50 MG CAPSULE PO SCH (09:04)
[2019-04-29] MEDS: ALLOPURINOL 300 MG TABLET PO SCH (09:04)
[2019-04-29] MEDS: OXYBUTYNIN 5 MG TABLET PO SCH (09:04)
[2019-04-29] MEDS: LEVOTHYROXINE 200 MCG TABLET PO SCH (09:04)
[2019-04-29] MEDS: ASPIRIN EC 81 MG TABLET PO SCH (09:05)
[2019-04-29] MEDS: amLODIPine 5 MG TABLET PO SCH (09:05)
[2019-04-29] MEDS: SODIUM BICARBONATE 650 MG TABLET PO SCH (09:05)
[2019-04-29] MEDS: ZINC OXIDE PASTE 113 GM TUBE TOP SCH (09:08)
[2019-04-29] MEDS: NYSTATIN CREAM 15 GM TUBE TOP SCH (09:08)
[2019-04-29] MEDS: TIMOLOL 0.5% OPH SOLN 5 ML BOTTLE BOTH EYES SCH (09:08)
[2019-04-29 12:02] VITALS: BP 129/58
== END 2019-04-29 12:40 | disposition swing bed (61) | DRG 673 ==
LOC: N.ICU 22:38 → SUATTDRO 23:38 → N.2E 04-16 16:50
PROVIDERS: ADMIT Internal Medicine; ATTEND Internal Medicine

== ENCOUNTER 2020-06-06 12:06 | Inpatient (IN) ==
[2020-06-06] MEDS ORDERED: GLUCAGON 1 MG VIAL IM PRN (15:43)
[2020-06-06] MEDS ORDERED: DEXTROSE 50% 25 GM/50 ML VIAL IV PRN (15:43)
[2020-06-06] MEDS ORDERED: ONDANSETRON 4 MG/2 ML VIAL IV PRN (15:43)
[2020-06-06] MEDS ORDERED: PANTOPRAZOLE 40 MG TABLET PO SCH (16:00)
[2020-06-06 16:20] LABS: Basophils # 0.1 10*3/uL (0.0-0.2); Basophils % 0.4 % (0.0-0.8); Eosinophils # 0.1 10*3/uL (0.0-0.87); Eosinophils % 0.8 % (0.00-10.9); Hematocrit 26.6 VOL% (35.7-47.0); Hemoglobin 8.8 GM/DL (12.0-16.0); Immature Granulocytes % 0.8 %; Immature Granulocytes Absolute 0.09 #; Lymphocytes # 0.6 10*3/uL (1.4-4.0); Lymphocytes % 4.7 % (21.3-54.2); Mean Corpuscular HGB Conc 33.1 GM/DL (32-36); Mean Corpuscular Volume 95.7 FL (87-102); Mean Platelet Volume 12.4 FL (9.6-12.0); Monocytes % 7.8 % (1.7-12.7); NRBC # 0.02 10*3/uL; Neutrophils % 85.5 % (38.7-73.9); Platelet Count 212 T/CUMM (130-400); Red Blood Count 2.78 MC/CUMM (3.8-5.5); Red Cell Distribution Width 14.8 % (9.3-17.3); White Blood Count 11.9 T/CUMM (4-12)
[2020-06-06 16:40] LABS: Alanine Aminotransferase < 9 U/L (13-56); Albumin 3.5 G/DL (3.4-5.0); Alkaline Phosphatase 117 U/L (45-117); Aspartate Amino Transferase 7 U/L (0-37); Blood Urea Nitrogen 149 MG/DL (7-18); Calcium 10.1 MG/DL (8.5-10.1); Estimated Glom Filtration Rate 10 ML/MIN; Glucose 375 MG/DL (74-106); Osmolality,Calculated 333.1 MOS/KG (273-304); Total Protein 7.9 G/DL (6.4-8.3)
[2020-06-06] MEDS: INSULIN REGULAR 100 UNIT/ML SUBCUT SCH ×2 (17:04→22:02)
[2020-06-06] MEDS: traMADol 50 MG TABLET PO PRN (17:04)
[2020-06-06 17:57] LABS: Band Neutrophils 2 % (0-10); Eosinophils 1 % (0-10); Lymphocytes 8 % (20-55); Macrocytosis 1+; Platelet Estimate Normal; Segmented Neutrophils 85 % (50-85); Total Cells Counted 100
[2020-06-06 17:58] LABS: Ovalocytes Slight; Polychromasia Slight
[2020-06-06] MEDS: NYSTATIN CREAM 15 GM TUBE TOP SCH (22:00)
[2020-06-06] MEDS: SODIUM BICARBONATE 650 MG TABLET PO SCH (22:00)
[2020-06-06] MEDS: PREGABALIN 25 MG CAPSULE PO SCH (22:00)
[2020-06-06] MEDS: TIMOLOL 0.5% OPH SOLN 5 ML BOTTLE BOTH EYES SCH (22:01)
[2020-06-07 06:07] LABS: Basophils # 0.1 10*3/uL (0.0-0.2); Basophils % 0.5 % (0.0-0.8); Eosinophils # 0.4 10*3/uL (0.0-0.87); Eosinophils % 3.7 % (0.00-10.9); Hematocrit 24.8 VOL% (35.7-47.0); Hemoglobin 8.2 GM/DL (12.0-16.0); Immature Granulocytes % 0.7 %; Immature Granulocytes Absolute 0.07 #; Lymphocytes # 0.6 10*3/uL (1.4-4.0); Lymphocytes % 6.6 % (21.3-54.2); Mean Corpuscular HGB Conc 33.1 GM/DL (32-36); Mean Corpuscular Volume 95.4 FL (87-102); Mean Platelet Volume 12.2 FL (9.6-12.0); Monocytes % 11.9 % (1.7-12.7); NRBC # 0.03 10*3/uL; Neutrophils % 76.6 % (38.7-73.9); Platelet Count 199 T/CUMM (130-400); Red Cell Distribution Width 14.7 % (9.3-17.3); White Blood Count 9.7 T/CUMM (4-12)
[2020-06-07 06:26] LABS: % Iron Saturation 8.9 % (18-50)
[2020-06-07 06:36] LABS: Calcium 9.9 MG/DL (8.5-10.1); Osmolality,Calculated 328.5 MOS/KG (273-304); Risk Ratio 2.3; Thyroid Stimulating Hormone 2.3 uIU/ml (0.358-3.74); VLDL CHOLESTEROL 12.2 MG/DL
[2020-06-07 07:23] LABS: Hepatitis B Core IgM Quant 0.07 Index; Hepatitis B Surface Ag Quant < 0.10 Index; Hepatitis B Surface Ag Result Negative (Negative); Hepatitis C Virus Ab Quant 0.02 Index; Hepatitis C Virus Ab Result Negative (Negative)
[2020-06-07] MEDS: INSULIN REGULAR 100 UNIT/ML SUBCUT SCH ×4 (07:30→21:24)
[2020-06-07] MEDS ORDERED: FUROSEMIDE 80 MG TABLET PO SCH (08:00)
[2020-06-07] MEDS ORDERED: FERRIC GLUCONATE COMPLEX 125 MG in SODIUM CHLORIDE 0.9% 100 ML IV SCH (08:28)
[2020-06-07] MEDS ORDERED: EPOETIN ALFA-EPBX 10,000 UNIT/ML VIAL IV PRN (08:55)
[2020-06-07] MEDS ORDERED: ENOXAPARIN 30 MG/0.3 ML SYRINGE SUBCUT SCH (09:00)
[2020-06-07] MEDS ORDERED: BUPIVACAINE MPF 0.25% 30 ML VIAL ONE (09:13)
[2020-06-07] MEDS ORDERED: LIDOCAINE 1%/EPI INJ 20 ML VIAL ONE (09:13)
[2020-06-07] MEDS ORDERED: HEPARIN 5,000 UNIT/1 ML VIAL ONE (09:13)
[2020-06-07] MEDS ORDERED: ceFAZolin 1,000 MG VIAL ONE (09:52)
[2020-06-07] MEDS ORDERED: ceFAZolin 1,000 MG in SYRINGE 1 EACH IV ONE (10:00)
[2020-06-07] MEDS ORDERED: propofoL 200 MG/20 ML VIAL IV ONE (10:20)
[2020-06-07] MEDS ORDERED: ONDANSETRON 4 MG/2 ML VIAL ONE (10:21)
[2020-06-07] MEDS ORDERED: LIDOCAINE 2% 5 ML VIAL ONE (10:21)
[2020-06-07] MEDS ORDERED: fentaNYL 100 MCG/2 ML VIAL ONE (10:21)
[2020-06-07] MEDS: traMADol 50 MG TABLET PO PRN ×2 (13:16→23:33)
[2020-06-07] MEDS: ASPIRIN EC 81 MG TABLET PO SCH (14:14)
[2020-06-07] MEDS: ATORVASTATIN 40 MG TABLET PO SCH (14:14)
[2020-06-07] MEDS: allopurinoL 300 MG TABLET PO SCH (14:15)
[2020-06-07] MEDS: PREGABALIN 25 MG CAPSULE PO SCH ×2 (14:15→21:24)
[2020-06-07] MEDS: NYSTATIN CREAM 15 GM TUBE TOP SCH ×3 (14:15→21:24)
[2020-06-07] MEDS ORDERED: HEPARIN 10,000 UNIT/10 ML VIAL IV SCH (14:15)
[2020-06-07] MEDS: amLODIPine 10 MG TABLET PO SCH (14:15)
[2020-06-07] MEDS: SODIUM BICARBONATE 650 MG TABLET PO SCH ×2 (14:15→21:24)
[2020-06-07] MEDS ORDERED: HEPARIN 10,000 UNIT/10 ML VIAL ONE (14:44)
[2020-06-07] MEDS ORDERED: EPOETIN ALFA-EPBX 2,000 UNIT/ML VIAL ONE (14:45)
[2020-06-07] MEDS: TIMOLOL 0.5% OPH SOLN 5 ML BOTTLE BOTH EYES SCH (21:25)
[2020-06-08 05:51] LABS: Basophils # 0.1 10*3/uL (0.0-0.2); Basophils % 0.6 % (0.0-0.8); Eosinophils # 0.3 10*3/uL (0.0-0.87); Eosinophils % 2.9 % (0.00-10.9); Hematocrit 27.7 VOL% (35.7-47.0); Immature Granulocytes % 0.9 %; Lymphocytes # 0.6 10*3/uL (1.4-4.0); Lymphocytes % 5.7 % (21.3-54.2); Mean Corpuscular HGB Conc 32.5 GM/DL (32-36); Mean Corpuscular Volume 97.5 FL (87-102); Mean Platelet Volume 12.1 FL (9.6-12.0); Monocytes % 12.3 % (1.7-12.7); NRBC # 0.11 10*3/uL; Neutrophils % 77.6 % (38.7-73.9); Platelet Count 189 T/CUMM (130-400); Red Blood Count 2.84 MC/CUMM (3.8-5.5); Red Cell Distribution Width 14.7 % (9.3-17.3); White Blood Count 10.6 T/CUMM (4-12)
[2020-06-08 06:18] LABS: Calcium 9.5 MG/DL (8.5-10.1); Osmolality,Calculated 307.7 MOS/KG (273-304)
[2020-06-08] MEDS: traMADol 50 MG TABLET PO PRN ×2 (06:55→16:42)
[2020-06-08] MEDS: amLODIPine 10 MG TABLET PO SCH (08:48)
[2020-06-08] MEDS: ATORVASTATIN 40 MG TABLET PO SCH (08:48)
[2020-06-08] MEDS: INSULIN REGULAR 100 UNIT/ML SUBCUT SCH ×4 (08:48→21:14)
[2020-06-08] MEDS: SODIUM BICARBONATE 650 MG TABLET PO SCH (08:48)
[2020-06-08] MEDS: ASPIRIN EC 81 MG TABLET PO SCH (08:48)
[2020-06-08] MEDS: PREGABALIN 25 MG CAPSULE PO SCH ×2 (08:49→20:47)
[2020-06-08] MEDS: allopurinoL 300 MG TABLET PO SCH (08:49)
[2020-06-08] MEDS: NYSTATIN CREAM 15 GM TUBE TOP SCH ×3 (08:59→20:49)
[2020-06-08] MEDS ORDERED: metOLazone 5 MG TABLET PO SCH (09:00)
[2020-06-08] MEDS: FUROSEMIDE 80 MG TABLET PO SCH (09:43)
[2020-06-08] MEDS ORDERED: HEPARIN 10,000 UNIT/10 ML VIAL ONE (11:31)
[2020-06-08] MEDS ORDERED: EPOETIN ALFA-EPBX 2,000 UNIT/ML VIAL ONE (11:31)
[2020-06-08] MEDS ORDERED: HEPARIN 5,000 UNIT/1 ML VIAL SUBCUT SCH (17:00)
[2020-06-08] MEDS: TIMOLOL 0.5% OPH SOLN 5 ML BOTTLE BOTH EYES SCH (20:48)
[2020-06-08] MEDS: MENTHOL/ZINC OXIDE OINT 71 GM JAR TOP SCH (21:16)
[2020-06-09] MEDS: LEVOTHYROXINE 75 MCG TABLET PO SCH (06:00)
[2020-06-09] MEDS: INSULIN REGULAR 100 UNIT/ML SUBCUT SCH ×4 (08:28→21:45)
[2020-06-09] MEDS: amLODIPine 10 MG TABLET PO SCH (08:28)
[2020-06-09] MEDS: ATORVASTATIN 40 MG TABLET PO SCH (08:30)
[2020-06-09] MEDS: allopurinoL 100 MG TABLET PO SCH (08:30)
[2020-06-09] MEDS: ASPIRIN EC 81 MG TABLET PO SCH (08:30)
[2020-06-09] MEDS: metOLazone 5 MG TABLET PO SCH (08:30)
[2020-06-09] MEDS: NYSTATIN CREAM 15 GM TUBE TOP SCH ×3 (08:31→21:46)
[2020-06-09] MEDS: PREGABALIN 25 MG CAPSULE PO SCH ×2 (08:31→21:45)
[2020-06-09] MEDS: MENTHOL/ZINC OXIDE OINT 71 GM JAR TOP SCH ×2 (08:40→21:46)
[2020-06-09] MEDS ORDERED: EPOETIN ALFA-EPBX 10,000 UNIT/ML VIAL ONE (10:18)
[2020-06-09] MEDS ORDERED: HEPARIN 10,000 UNIT/10 ML VIAL ONE (10:19)
[2020-06-09] MEDS: FUROSEMIDE 80 MG TABLET PO SCH (13:16)
[2020-06-09] MEDS: traMADol 50 MG TABLET PO PRN ×2 (13:45→23:06)
[2020-06-09] MEDS: TIMOLOL 0.5% OPH SOLN 5 ML BOTTLE BOTH EYES SCH (21:46)
[2020-06-10 03:57] LABS: Basophils % 0.3 % (0.0-0.8); Eosinophils # 0.4 10*3/uL (0.0-0.87); Eosinophils % 3.6 % (0.00-10.9); Hematocrit 28.1 VOL% (35.7-47.0); Hemoglobin 8.9 GM/DL (12.0-16.0); Immature Granulocytes % 1.3 %; Immature Granulocytes Absolute 0.15 #; Lymphocytes # 0.8 10*3/uL (1.4-4.0); Lymphocytes % 6.3 % (21.3-54.2); Mean Corpuscular HGB Conc 31.7 GM/DL (32-36); Mean Corpuscular Volume 99.6 FL (87-102); Mean Platelet Volume 12.3 FL (9.6-12.0); Monocytes % 12.4 % (1.7-12.7); NRBC # 0.11 10*3/uL; Neutrophils % 76.1 % (38.7-73.9); Platelet Count 184 T/CUMM (130-400); Red Blood Count 2.82 MC/CUMM (3.8-5.5); Red Cell Distribution Width 14.6 % (9.3-17.3)
[2020-06-10 04:23] LABS: Uric Acid 2.4 MG/DL (2.6-6.0)
[2020-06-10 05:10] LABS: Osmolality,Calculated 285.8 MOS/KG (273-304)
[2020-06-10] MEDS: LEVOTHYROXINE 75 MCG TABLET PO SCH (05:57)
[2020-06-10] MEDS: ASPIRIN EC 81 MG TABLET PO SCH (08:49)
[2020-06-10] MEDS: amLODIPine 10 MG TABLET PO SCH (08:49)
[2020-06-10] MEDS: ATORVASTATIN 40 MG TABLET PO SCH (08:49)
[2020-06-10] MEDS: metOLazone 5 MG TABLET PO SCH (08:49)
[2020-06-10] MEDS: allopurinoL 100 MG TABLET PO SCH (08:49)
[2020-06-10] MEDS: NYSTATIN CREAM 15 GM TUBE TOP SCH ×3 (08:50→21:40)
[2020-06-10] MEDS: MENTHOL/ZINC OXIDE OINT 71 GM JAR TOP SCH ×2 (08:50→21:40)
[2020-06-10] MEDS: PREGABALIN 25 MG CAPSULE PO SCH ×2 (08:50→20:29)
[2020-06-10] MEDS: FUROSEMIDE 80 MG TABLET PO SCH (08:50)
[2020-06-10] MEDS: INSULIN REGULAR 100 UNIT/ML SUBCUT SCH ×4 (08:50→20:32)
[2020-06-10] MEDS ORDERED: LACTULOSE 20 GM/30 ML UDCUP PO PRN (10:53)
[2020-06-10] MEDS: TROLAMINE SALICYLATE 10% CREAM 85 GM TUBE TOP PRN (17:44)
[2020-06-10] MEDS: traMADol 50 MG TABLET PO PRN (21:38)
[2020-06-10] MEDS: TIMOLOL 0.5% OPH SOLN 5 ML BOTTLE BOTH EYES SCH (21:39)
[2020-06-11] MEDS: TROLAMINE SALICYLATE 10% CREAM 85 GM TUBE TOP PRN (00:05)
[2020-06-11 05:41] LABS: Basophils # 0.1 10*3/uL (0.0-0.2); Basophils % 0.5 % (0.0-0.8); Eosinophils # 0.5 10*3/uL (0.0-0.87); Eosinophils % 3.6 % (0.00-10.9); Hematocrit 27.2 VOL% (35.7-47.0); Hemoglobin 8.7 GM/DL (12.0-16.0); Immature Granulocytes % 1.2 %; Immature Granulocytes Absolute 0.15 #; Lymphocytes # 0.8 10*3/uL (1.4-4.0); Lymphocytes % 6.1 % (21.3-54.2); Mean Platelet Volume 12.2 FL (9.6-12.0); Monocytes % 11.9 % (1.7-12.7); NRBC # 0.17 10*3/uL; Neutrophils % 76.7 % (38.7-73.9); Platelet Count 198 T/CUMM (130-400); Red Blood Count 2.72 MC/CUMM (3.8-5.5); Red Cell Distribution Width 14.7 % (9.3-17.3); White Blood Count 12.9 T/CUMM (4-12)
[2020-06-11 05:51] LABS: Calcium 8.8 MG/DL (8.5-10.1); Osmolality,Calculated 287.1 MOS/KG (273-304)
[2020-06-11] MEDS: LEVOTHYROXINE 75 MCG TABLET PO SCH (05:55)
[2020-06-11] MEDS: INSULIN REGULAR 100 UNIT/ML SUBCUT SCH ×4 (07:33→20:51)
[2020-06-11] MEDS: ATORVASTATIN 40 MG TABLET PO SCH (08:16)
[2020-06-11] MEDS: ASPIRIN EC 81 MG TABLET PO SCH (08:16)
[2020-06-11] MEDS: PREGABALIN 25 MG CAPSULE PO SCH ×2 (08:16→20:51)
[2020-06-11] MEDS: allopurinoL 100 MG TABLET PO SCH (08:16)
[2020-06-11] MEDS: amLODIPine 10 MG TABLET PO SCH (08:18)
[2020-06-11] MEDS: FUROSEMIDE 80 MG TABLET PO SCH (08:30)
[2020-06-11] MEDS: metOLazone 5 MG TABLET PO SCH (08:30)
[2020-06-11] MEDS: MENTHOL/ZINC OXIDE OINT 71 GM JAR TOP SCH ×2 (08:30→20:52)
[2020-06-11] MEDS: NYSTATIN CREAM 15 GM TUBE TOP SCH ×3 (08:31→20:52)
[2020-06-11] MEDS: traMADol 50 MG TABLET PO PRN (12:10)
[2020-06-11] MEDS ORDERED: TUBERCULIN SKIN TEST 0.1 ML SYRINGE INTRADERM ONE (15:00)
[2020-06-11] MEDS: TIMOLOL 0.5% OPH SOLN 5 ML BOTTLE BOTH EYES SCH (20:52)
[2020-06-12] MEDS: traMADol 50 MG TABLET PO PRN (02:05)
[2020-06-12] MEDS: LEVOTHYROXINE 75 MCG TABLET PO SCH (05:40)
[2020-06-12 06:08] LABS: Basophils # 0.1 10*3/uL (0.0-0.2); Basophils % 0.4 % (0.0-0.8); Eosinophils # 0.4 10*3/uL (0.0-0.87); Eosinophils % 3.7 % (0.00-10.9); Hematocrit 28.7 VOL% (35.7-47.0); Hemoglobin 9.2 GM/DL (12.0-16.0); Immature Granulocytes % 1.2 %; Immature Granulocytes Absolute 0.14 #; Lymphocytes # 0.6 10*3/uL (1.4-4.0); Lymphocytes % 5.6 % (21.3-54.2); Mean Corpuscular HGB Conc 32.1 GM/DL (32-36); Mean Corpuscular Volume 100.7 FL (87-102); Monocytes % 10.4 % (1.7-12.7); NRBC # 0.08 10*3/uL; Neutrophils % 78.7 % (38.7-73.9); Platelet Count 192 T/CUMM (130-400); Red Blood Count 2.85 MC/CUMM (3.8-5.5); Red Cell Distribution Width 15.1 % (9.3-17.3); White Blood Count 11.3 T/CUMM (4-12)
[2020-06-12 06:31] LABS: Calcium 9.1 MG/DL (8.5-10.1); Osmolality,Calculated 293.2 MOS/KG (273-304)
[2020-06-12] MEDS: INSULIN REGULAR 100 UNIT/ML SUBCUT SCH ×2 (07:37→12:25)
[2020-06-12] MEDS ORDERED: INFLUENZA VIRUS VACCINE 0.5 ML SYRINGE IM ONE (12:39)
[2020-06-12 12:44] VITALS: BP 106/45
[2020-06-12] MEDS: amLODIPine 10 MG TABLET PO SCH (12:58)
[2020-06-12] MEDS: FUROSEMIDE 80 MG TABLET PO SCH (12:59)
[2020-06-12] MEDS: ASPIRIN EC 81 MG TABLET PO SCH (12:59)
[2020-06-12] MEDS: allopurinoL 100 MG TABLET PO SCH (12:59)
[2020-06-12] MEDS: metOLazone 5 MG TABLET PO SCH (12:59)
[2020-06-12] MEDS: PREGABALIN 25 MG CAPSULE PO SCH (12:59)
[2020-06-12] MEDS: ATORVASTATIN 40 MG TABLET PO SCH (13:00)
[2020-06-12] MEDS: MENTHOL/ZINC OXIDE OINT 71 GM JAR TOP SCH (13:00)
[2020-06-12] MEDS: NYSTATIN CREAM 15 GM TUBE TOP SCH (13:00)
== END 2020-06-12 15:09 | DRG 291 ==
LOC: N.5E → OBSVTOIN 14:20 → SUATTDRO 14:20
PROVIDERS: ADMIT Internal Medicine; ATTEND Internal Medicine

== ENCOUNTER 2020-07-20 14:16 | Inpatient (IN) ==
[2020-07-20] MEDS ORDERED: SODIUM CHLORIDE 0.9% 250 ML IV STA (14:48)
[2020-07-20 15:03] LABS: Basophils % 0.5 % (0.0-0.8); Eosinophils % 0.4 % (0.00-10.9); Hematocrit 31.4 VOL% (35.7-47.0); Hemoglobin 10.4 GM/DL (12.0-16.0); Immature Granulocytes Absolute 0.08 #; Lymphocytes # 0.9 10*3/uL (1.4-4.0); Lymphocytes % 11.5 % (21.3-54.2); Mean Corpuscular HGB Conc 33.1 GM/DL (32-36); Mean Corpuscular Volume 98.7 FL (87-102); Mean Platelet Volume 12.1 FL (9.6-12.0); Monocytes % 12.9 % (1.7-12.7); NRBC # 0.02 10*3/uL; Neutrophils % 73.7 % (38.7-73.9); Platelet Count 165 T/CUMM (130-400); Red Blood Count 3.18 MC/CUMM (3.8-5.5); Red Cell Distribution Width 17.2 % (9.3-17.3); White Blood Count 7.8 T/CUMM (4-12)
[2020-07-20 15:13] LABS: Calcium 9.5 MG/DL (8.5-10.1); Osmolality,Calculated 298.8 MOS/KG (273-304)
[2020-07-20] MEDS ORDERED: DIGOXIN 0.5 MG/2 ML AMP IV STA (16:11)
[2020-07-20] MEDS ORDERED: ALBUTEROL 2.5 MG/3 ML NEB RESP TX PRN (16:13)
[2020-07-20] MEDS ORDERED: ONDANSETRON 4 MG/2 ML VIAL IV PRN (16:13)
[2020-07-20] MEDS ORDERED: DOPamine 800 MG/250 ML PREMIX IV SCH (16:30)
[2020-07-20] MEDS ORDERED: EPOETIN ALFA-EPBX 10,000 UNIT/ML VIAL IV PRN (16:46)
[2020-07-20] MEDS ORDERED: DIGOXIN 0.5 MG/2 ML AMP IV ONE (17:00)
[2020-07-20] MEDS ORDERED: AMIODARONE INJ 150 MG in DEXTROSE 5% 100 ML IV ONE (17:18)
[2020-07-20] MEDS ORDERED: AMIODARONE INJ 450 MG in DEXTROSE 5% 241 ML IV SCH ×3 (17:30→23:30)
[2020-07-20] MEDS ORDERED: ENOXAPARIN 30 MG/0.3 ML SYRINGE SUBCUT SCH (21:00)
[2020-07-20] MEDS ORDERED: ENOXAPARIN 40 MG/0.4 ML SYRINGE SUBCUT SCH (21:00)
[2020-07-20] MEDS: INSULIN REGULAR 100 UNIT/ML SUBCUT SCH (21:55)
[2020-07-20] MEDS: PREGABALIN 25 MG CAPSULE PO SCH (21:56)
[2020-07-20] MEDS: traMADol 50 MG TABLET PO PRN (21:56)
[2020-07-20] MEDS: TIMOLOL 0.5% OPH SOLN 5 ML BOTTLE BOTH EYES SCH (23:04)
[2020-07-21] MEDS: AMIODARONE INJ 450 MG in DEXTROSE 5% 241 ML IV SCH (05:15)
[2020-07-21 06:18] LABS: Basophils % 0.6 % (0.0-0.8); Eosinophils # 0.1 10*3/uL (0.0-0.87); Eosinophils % 1.8 % (0.00-10.9); Hematocrit 30.4 VOL% (35.7-47.0); Hemoglobin 9.9 GM/DL (12.0-16.0); Immature Granulocytes % 1.1 %; Immature Granulocytes Absolute 0.08 #; Lymphocytes % 13.7 % (21.3-54.2); Mean Corpuscular HGB Conc 32.6 GM/DL (32-36); Mean Platelet Volume 12.1 FL (9.6-12.0); Monocytes % 15.5 % (1.7-12.7); NRBC # 0.03 10*3/uL; Neutrophils % 67.3 % (38.7-73.9); Platelet Count 162 T/CUMM (130-400); Red Blood Count 3.07 MC/CUMM (3.8-5.5); Red Cell Distribution Width 17.2 % (9.3-17.3); White Blood Count 7.2 T/CUMM (4-12)
[2020-07-21 06:28] LABS: INR 1.2; PT Patient Result 12.4 SECS (9.8-11.9)
[2020-07-21 06:43] LABS: Risk Ratio 3.52; VLDL CHOLESTEROL 20.6 MG/DL
[2020-07-21 06:48] LABS: Albumin 3.1 G/DL (3.4-5.0); Bilirubin,Total 1.2 MG/DL (0.2-1.0); Calcium 9.1 MG/DL (8.5-10.1); Osmolality,Calculated 293.8 MOS/KG (273-304); Total Protein 6.5 G/DL (6.4-8.3)
[2020-07-21 06:57] LABS: Eosinophils 2 % (0-10); Lymphocytes 17 % (20-55); Nucleated Red Blood Cells 1 (0-5); Platelet Estimate Normal; Segmented Neutrophils 73 % (50-85); Total Cells Counted 100
[2020-07-21 06:58] LABS: Hypochromasia Slight
[2020-07-21] MEDS: ATORVASTATIN 40 MG TABLET PO SCH (08:23)
[2020-07-21] MEDS: ASPIRIN EC 81 MG TABLET PO SCH (08:23)
[2020-07-21] MEDS: PREGABALIN 25 MG CAPSULE PO SCH ×2 (08:23→21:55)
[2020-07-21] MEDS: INSULIN REGULAR 100 UNIT/ML SUBCUT SCH ×3 (08:23→16:49)
[2020-07-21] MEDS: LEVOTHYROXINE 75 MCG TABLET PO SCH (08:24)
[2020-07-21] MEDS: HEPARIN 5,000 UNIT/1 ML VIAL SUBCUT SCH ×2 (10:32→16:50)
[2020-07-21] MEDS: DEXAMETHASONE 4 MG TABLET PO SCH (10:32)
[2020-07-21] MEDS: allopurinoL 300 MG TABLET PO SCH (10:32)
[2020-07-21] MEDS: LACTULOSE 20 GM/30 ML UDCUP PO PRN (18:02)
[2020-07-21] MEDS ORDERED: SODIUM CHLORIDE 0.9% 1,000 ML IV PRN (18:17)
[2020-07-21] MEDS: TIMOLOL 0.5% OPH SOLN 5 ML BOTTLE BOTH EYES SCH (21:55)
[2020-07-21] MEDS: AMIODARONE 200 MG TABLET PO SCH (21:55)
[2020-07-21] MEDS: ZINC GLUCONATE 50 MG TABLET PO SCH (21:55)
[2020-07-21] MEDS: FAMOTIDINE 20 MG TABLET PO SCH (21:55)
[2020-07-22] MEDS: AMIODARONE INJ 450 MG in DEXTROSE 5% 241 ML IV SCH (04:01)
[2020-07-22] MEDS: INSULIN REGULAR 100 UNIT/ML SUBCUT SCH ×4 (04:05→17:19)
[2020-07-22] MEDS: HEPARIN 5,000 UNIT/1 ML VIAL SUBCUT SCH ×2 (04:32→08:36)
[2020-07-22] MEDS: traMADol 50 MG TABLET PO PRN (04:32)
[2020-07-22 06:39] LABS: Calcium 9.2 MG/DL (8.5-10.1); Ferritin 2313.8 ng/ml (8-252); Osmolality,Calculated 302.2 MOS/KG (273-304)
[2020-07-22] MEDS: AMIODARONE 200 MG TABLET PO SCH ×2 (08:36→22:06)
[2020-07-22] MEDS: CHOLECALCIFEROL 1,000 UNIT TABLET PO SCH (08:37)
[2020-07-22] MEDS: allopurinoL 300 MG TABLET PO SCH (08:37)
[2020-07-22] MEDS: ATORVASTATIN 40 MG TABLET PO SCH (08:37)
[2020-07-22] MEDS: ASPIRIN EC 81 MG TABLET PO SCH (08:37)
[2020-07-22] MEDS: ZINC GLUCONATE 50 MG TABLET PO SCH ×2 (08:37→22:05)
[2020-07-22] MEDS: PREGABALIN 25 MG CAPSULE PO SCH ×2 (08:37→22:05)
[2020-07-22] MEDS: ASCORBIC ACID 500 MG TABLET PO SCH (08:37)
[2020-07-22] MEDS: LEVOTHYROXINE 75 MCG TABLET PO SCH (11:28)
[2020-07-22] MEDS: DEXAMETHASONE 4 MG TABLET PO SCH (11:29)
[2020-07-22] MEDS: FAMOTIDINE 20 MG TABLET PO SCH ×2 (11:40→22:05)
[2020-07-22 17:00] LABS: Hepatitis B Surface Ag Quant < 0.10 Index; Hepatitis B Surface Ag Result Negative (Negative); Hepatitis C Virus Ab Quant 0.07 Index; Hepatitis C Virus Ab Result Negative (Negative)
[2020-07-22] MEDS: APIXABAN 5 MG TABLET PO SCH (22:05)
[2020-07-22] MEDS: TIMOLOL 0.5% OPH SOLN 5 ML BOTTLE BOTH EYES SCH (22:05)
[2020-07-23 06:00] LABS: Basophils % 0.1 % (0.0-0.8); Hemoglobin 11.8 GM/DL (12.0-16.0); Immature Granulocytes % 1.1 %; Immature Granulocytes Absolute 0.09 #; Lymphocytes # 0.6 10*3/uL (1.4-4.0); Lymphocytes % 7.2 % (21.3-54.2); Mean Corpuscular HGB Conc 32.8 GM/DL (32-36); Mean Corpuscular Volume 98.6 FL (87-102); Mean Platelet Volume 12.6 FL (9.6-12.0); Monocytes % 8.7 % (1.7-12.7); NRBC # 0.05 10*3/uL; Neutrophils % 82.9 % (38.7-73.9); Platelet Count 194 T/CUMM (130-400); Red Blood Count 3.65 MC/CUMM (3.8-5.5); Red Cell Distribution Width 17.5 % (9.3-17.3); White Blood Count 8.5 T/CUMM (4-12)
[2020-07-23 06:39] LABS: Albumin 3.2 G/DL (3.4-5.0); Bilirubin,Total 0.6 MG/DL (0.2-1.0); Calcium 9.5 MG/DL (8.5-10.1); Osmolality,Calculated 293.4 MOS/KG (273-304); Total Protein 7.2 G/DL (6.4-8.3)
[2020-07-23] MEDS: INSULIN REGULAR 100 UNIT/ML SUBCUT SCH ×5 (07:29→21:07)
[2020-07-23] MEDS: allopurinoL 300 MG TABLET PO SCH (09:12)
[2020-07-23] MEDS: ZINC GLUCONATE 50 MG TABLET PO SCH (09:12)
[2020-07-23] MEDS: AMIODARONE 200 MG TABLET PO SCH ×2 (09:12→20:39)
[2020-07-23] MEDS: CHOLECALCIFEROL 1,000 UNIT TABLET PO SCH (09:12)
[2020-07-23] MEDS: LEVOTHYROXINE 75 MCG TABLET PO SCH (09:12)
[2020-07-23] MEDS: PREGABALIN 25 MG CAPSULE PO SCH ×2 (09:12→20:39)
[2020-07-23] MEDS: ASPIRIN EC 81 MG TABLET PO SCH (09:12)
[2020-07-23] MEDS: FAMOTIDINE 20 MG TABLET PO SCH ×2 (09:13→20:40)
[2020-07-23] MEDS: ATORVASTATIN 40 MG TABLET PO SCH (09:13)
[2020-07-23] MEDS: ASCORBIC ACID 500 MG TABLET PO SCH (09:13)
[2020-07-23] MEDS: DEXAMETHASONE 4 MG TABLET PO SCH (09:13)
[2020-07-23] MEDS: APIXABAN 5 MG TABLET PO SCH (09:48)
[2020-07-23] MEDS: LACTULOSE 20 GM/30 ML UDCUP PO PRN (18:56)
[2020-07-23] MEDS: APIXABAN 2.5 MG TABLET PO SCH (20:39)
[2020-07-23] MEDS: TIMOLOL 0.5% OPH SOLN 5 ML BOTTLE BOTH EYES SCH (20:40)
[2020-07-24 06:31] LABS: Basophils % 0.1 % (0.0-0.8); Hematocrit 34.4 VOL% (35.7-47.0); Hemoglobin 11.1 GM/DL (12.0-16.0); Immature Granulocytes % 0.7 %; Immature Granulocytes Absolute 0.06 #; Lymphocytes # 0.5 10*3/uL (1.4-4.0); Lymphocytes % 5.8 % (21.3-54.2); Mean Corpuscular HGB Conc 32.3 GM/DL (32-36); Mean Corpuscular Volume 99.4 FL (87-102); Mean Platelet Volume 12.7 FL (9.6-12.0); Monocytes % 10.3 % (1.7-12.7); NRBC # 0.06 10*3/uL; Neutrophils % 83.1 % (38.7-73.9); Platelet Count 179 T/CUMM (130-400); Red Blood Count 3.46 MC/CUMM (3.8-5.5); Red Cell Distribution Width 17.6 % (9.3-17.3); White Blood Count 8.3 T/CUMM (4-12)
[2020-07-24 06:55] LABS: Calcium 9.4 MG/DL (8.5-10.1); Osmolality,Calculated 287.4 MOS/KG (273-304)
[2020-07-24] MEDS: ASCORBIC ACID 500 MG TABLET PO SCH (09:20)
[2020-07-24] MEDS: DEXAMETHASONE 4 MG TABLET PO SCH (09:20)
[2020-07-24] MEDS: CHOLECALCIFEROL 1,000 UNIT TABLET PO SCH (09:20)
[2020-07-24] MEDS: LEVOTHYROXINE 75 MCG TABLET PO SCH (09:20)
[2020-07-24] MEDS: ATORVASTATIN 40 MG TABLET PO SCH (09:20)
[2020-07-24] MEDS: allopurinoL 300 MG TABLET PO SCH (09:21)
[2020-07-24] MEDS: ASPIRIN EC 81 MG TABLET PO SCH (09:21)
[2020-07-24] MEDS: FAMOTIDINE 20 MG TABLET PO SCH ×2 (09:21→23:09)
[2020-07-24] MEDS: PREGABALIN 25 MG CAPSULE PO SCH ×2 (09:21→22:09)
[2020-07-24] MEDS: APIXABAN 2.5 MG TABLET PO SCH ×2 (09:21→22:09)
[2020-07-24] MEDS: DILTIAZEM CD 120 MG CAPSULE PO SCH (09:21)
[2020-07-24] MEDS: INSULIN REGULAR 100 UNIT/ML SUBCUT SCH ×4 (09:21→22:09)
[2020-07-24] MEDS ORDERED: TUBERCULIN SKIN TEST 0.1 ML SYRINGE INTRADERM ONE (15:03)
[2020-07-24 16:03] LABS: Bilirubin,Urine Negative (Negative); Blood, Urine Negative (Negative); Glucose,Urine (UA) 50 mg/dL (Negative); Ketones,Urine Negative (Negative); Mucus,Urine Occasional /LPF (Occasional); Nitrite,Urine Negative (Negative); Protein,Urine 30 MG/DL; Squamous Epithelial Cell,Urine Occasional /HPF (0-10); Urine Appearance Slightly Hazy (Clear); Urine Color Yellow (Yellow); Urine Specific Gravity 1.013 (1.001-1.035); Urine Urobilinogen < 2.0 EU/DL (0.2-1.0); WBC,Urine 12 /HPF (0-6)
[2020-07-24] MEDS: cefTRIAXone 1,000 MG in SYRINGE 1 EACH IV SCH (16:07)
[2020-07-24] MEDS: TIMOLOL 0.5% OPH SOLN 5 ML BOTTLE BOTH EYES SCH (22:09)
[2020-07-25] MEDS: traMADol 50 MG TABLET PO PRN ×2 (02:39→20:58)
[2020-07-25 06:10] LABS: Basophils % 0.1 % (0.0-0.8); Hematocrit 35.5 VOL% (35.7-47.0); Hemoglobin 11.6 GM/DL (12.0-16.0); Immature Granulocytes % 0.9 %; Immature Granulocytes Absolute 0.08 #; Lymphocytes # 0.4 10*3/uL (1.4-4.0); Lymphocytes % 4.6 % (21.3-54.2); Mean Corpuscular HGB Conc 32.7 GM/DL (32-36); Mean Corpuscular Volume 99.2 FL (87-102); Mean Platelet Volume 12.6 FL (9.6-12.0); Monocytes % 8.9 % (1.7-12.7); NRBC # 0.07 10*3/uL; Neutrophils % 85.5 % (38.7-73.9); Platelet Count 186 T/CUMM (130-400); Red Blood Count 3.58 MC/CUMM (3.8-5.5); Red Cell Distribution Width 17.6 % (9.3-17.3); White Blood Count 9.3 T/CUMM (4-12)
[2020-07-25 06:30] LABS: Band Neutrophils 1 % (0-10); Lymphocytes 5 % (20-55); Nucleated Red Blood Cells 1 (0-5); Platelet Estimate Normal; Segmented Neutrophils 90 % (50-85); Total Cells Counted 100
[2020-07-25 06:55] LABS: Calcium 9.2 MG/DL (8.5-10.1); Osmolality,Calculated 298.7 MOS/KG (273-304)
[2020-07-25] MEDS: INSULIN REGULAR 100 UNIT/ML SUBCUT SCH ×4 (08:07→20:57)
[2020-07-25] MEDS: ASPIRIN EC 81 MG TABLET PO SCH (08:08)
[2020-07-25] MEDS: ATORVASTATIN 40 MG TABLET PO SCH (08:09)
[2020-07-25] MEDS: DEXAMETHASONE 4 MG TABLET PO SCH (08:09)
[2020-07-25] MEDS: APIXABAN 2.5 MG TABLET PO SCH ×2 (08:09→20:57)
[2020-07-25] MEDS: DILTIAZEM CD 120 MG CAPSULE PO SCH (08:09)
[2020-07-25] MEDS: CHOLECALCIFEROL 1,000 UNIT TABLET PO SCH (08:10)
[2020-07-25] MEDS: FAMOTIDINE 20 MG TABLET PO SCH ×3 (08:10→20:58)
[2020-07-25] MEDS: allopurinoL 300 MG TABLET PO SCH (08:10)
[2020-07-25] MEDS: PREGABALIN 25 MG CAPSULE PO SCH ×2 (08:10→20:57)
[2020-07-25] MEDS: ASCORBIC ACID 500 MG TABLET PO SCH (08:10)
[2020-07-25] MEDS: LEVOTHYROXINE 75 MCG TABLET PO SCH (08:10)
[2020-07-25] MEDS: cefTRIAXone 1,000 MG in SYRINGE 1 EACH IV SCH (14:57)
[2020-07-25] MEDS ORDERED: HEPARIN 10,000 UNIT/10 ML VIAL IV PRN (17:06)
[2020-07-25] MEDS: TIMOLOL 0.5% OPH SOLN 5 ML BOTTLE BOTH EYES SCH (20:58)
[2020-07-26 05:31] LABS: Basophils % 0.1 % (0.0-0.8); Hemoglobin 12.1 GM/DL (12.0-16.0); Immature Granulocytes % 1.1 %; Lymphocytes # 0.4 10*3/uL (1.4-4.0); Lymphocytes % 3.9 % (21.3-54.2); Mean Corpuscular HGB Conc 31.8 GM/DL (32-36); Mean Corpuscular Volume 101.6 FL (87-102); Mean Platelet Volume 12.6 FL (9.6-12.0); Monocytes % 10.5 % (1.7-12.7); Neutrophils % 84.4 % (38.7-73.9); Platelet Count 196 T/CUMM (130-400); Red Blood Count 3.74 MC/CUMM (3.8-5.5); Red Cell Distribution Width 18.2 % (9.3-17.3)
[2020-07-26 05:50] LABS: Calcium 9.2 MG/DL (8.5-10.1); Osmolality,Calculated 297.2 MOS/KG (273-304)
[2020-07-26 05:59] LABS: Hypochromasia 1+; Lymphocytes 3 % (20-55); Microcytosis 1+; Nucleated Red Blood Cells 4 (0-5); Platelet Estimate Adequate; Segmented Neutrophils 88 % (50-85); Total Cells Counted 100
[2020-07-26] MEDS: DEXAMETHASONE 4 MG TABLET PO SCH (08:02)
[2020-07-26] MEDS: ASPIRIN EC 81 MG TABLET PO SCH (08:02)
[2020-07-26] MEDS: DILTIAZEM CD 120 MG CAPSULE PO SCH (08:02)
[2020-07-26] MEDS: INSULIN REGULAR 100 UNIT/ML SUBCUT SCH ×4 (08:02→21:31)
[2020-07-26] MEDS: APIXABAN 2.5 MG TABLET PO SCH ×2 (08:03→21:31)
[2020-07-26] MEDS: LEVOTHYROXINE 75 MCG TABLET PO SCH (08:03)
[2020-07-26] MEDS: ATORVASTATIN 40 MG TABLET PO SCH (08:03)
[2020-07-26] MEDS: FAMOTIDINE 20 MG TABLET PO SCH ×2 (08:03→21:31)
[2020-07-26] MEDS: PREGABALIN 25 MG CAPSULE PO SCH ×2 (08:03→21:31)
[2020-07-26] MEDS: ASCORBIC ACID 500 MG TABLET PO SCH (08:03)
[2020-07-26] MEDS: CHOLECALCIFEROL 1,000 UNIT TABLET PO SCH (08:03)
[2020-07-26] MEDS: allopurinoL 300 MG TABLET PO SCH (08:04)
[2020-07-26] MEDS: cefTRIAXone 1,000 MG in SYRINGE 1 EACH IV SCH (15:44)
[2020-07-26] MEDS: TIMOLOL 0.5% OPH SOLN 5 ML BOTTLE BOTH EYES SCH (22:07)
[2020-07-27] MEDS: LACTULOSE 20 GM/30 ML UDCUP PO PRN (05:20)
[2020-07-27 06:33] LABS: Basophils % 0.1 % (0.0-0.8); Hematocrit 39.3 VOL% (35.7-47.0); Hemoglobin 12.7 GM/DL (12.0-16.0); Immature Granulocytes % 1.1 %; Immature Granulocytes Absolute 0.14 #; Lymphocytes # 0.3 10*3/uL (1.4-4.0); Lymphocytes % 2.6 % (21.3-54.2); Mean Corpuscular HGB Conc 32.3 GM/DL (32-36); Mean Corpuscular Volume 100.5 FL (87-102); Mean Platelet Volume 12.7 FL (9.6-12.0); Monocytes % 8.4 % (1.7-12.7); NRBC # 0.11 10*3/uL; Neutrophils % 87.8 % (38.7-73.9); Platelet Count 220 T/CUMM (130-400); Red Blood Count 3.91 MC/CUMM (3.8-5.5); Red Cell Distribution Width 18.2 % (9.3-17.3); White Blood Count 12.5 T/CUMM (4-12)
[2020-07-27 06:38] LABS: Calcium 9.4 MG/DL (8.5-10.1); Osmolality,Calculated 299.1 MOS/KG (273-304)
[2020-07-27 07:05] LABS: Anisocytosis 1+; Band Neutrophils 1 % (0-10); Hypochromasia 2+; Lymphocytes 3 % (20-55); Segmented Neutrophils 92 % (50-85); Total Cells Counted 100
[2020-07-27 07:06] LABS: Platelet Estimate Normal; Target Cells Few
[2020-07-27] MEDS: INSULIN REGULAR 100 UNIT/ML SUBCUT SCH ×4 (08:52→20:42)
[2020-07-27] MEDS: CHOLECALCIFEROL 1,000 UNIT TABLET PO SCH (08:53)
[2020-07-27] MEDS: PREGABALIN 25 MG CAPSULE PO SCH ×2 (08:53→20:41)
[2020-07-27] MEDS: ATORVASTATIN 40 MG TABLET PO SCH (08:53)
[2020-07-27] MEDS: DEXAMETHASONE 4 MG TABLET PO SCH (08:54)
[2020-07-27] MEDS: APIXABAN 2.5 MG TABLET PO SCH ×2 (08:54→20:41)
[2020-07-27] MEDS: FAMOTIDINE 20 MG TABLET PO SCH ×2 (08:54→09:03)
[2020-07-27] MEDS: LEVOTHYROXINE 75 MCG TABLET PO SCH (08:54)
[2020-07-27] MEDS: allopurinoL 300 MG TABLET PO SCH (08:54)
[2020-07-27] MEDS: ASCORBIC ACID 500 MG TABLET PO SCH (08:54)
[2020-07-27] MEDS: DILTIAZEM CD 120 MG CAPSULE PO SCH (08:55)
[2020-07-27] MEDS: ASPIRIN EC 81 MG TABLET PO SCH (08:55)
[2020-07-27] MEDS: traMADol 50 MG TABLET PO PRN (12:00)
[2020-07-27] MEDS: cefTRIAXone 1,000 MG in SYRINGE 1 EACH IV SCH (16:23)
[2020-07-27] MEDS: SULFAMETHOX/TRIMETHOPRIM 800-160 MG TABLET PO SCH (20:41)
[2020-07-27] MEDS: TIMOLOL 0.5% OPH SOLN 5 ML BOTTLE BOTH EYES SCH (20:42)
[2020-07-28] MEDS: DEXAMETHASONE 4 MG TABLET PO SCH (08:39)
[2020-07-28] MEDS: INSULIN REGULAR 100 UNIT/ML SUBCUT SCH ×4 (08:39→21:58)
[2020-07-28] MEDS: DILTIAZEM CD 120 MG CAPSULE PO SCH (08:40)
[2020-07-28] MEDS: SULFAMETHOX/TRIMETHOPRIM 800-160 MG TABLET PO SCH (08:40)
[2020-07-28] MEDS: ASCORBIC ACID 500 MG TABLET PO SCH (08:40)
[2020-07-28] MEDS: LEVOTHYROXINE 75 MCG TABLET PO SCH (08:40)
[2020-07-28] MEDS: APIXABAN 2.5 MG TABLET PO SCH ×2 (08:40→21:58)
[2020-07-28] MEDS: allopurinoL 300 MG TABLET PO SCH (08:41)
[2020-07-28] MEDS: CHOLECALCIFEROL 1,000 UNIT TABLET PO SCH (08:41)
[2020-07-28] MEDS: ASPIRIN EC 81 MG TABLET PO SCH (08:41)
[2020-07-28] MEDS: ATORVASTATIN 40 MG TABLET PO SCH (08:41)
[2020-07-28] MEDS: PREGABALIN 25 MG CAPSULE PO SCH ×2 (08:41→21:58)
[2020-07-28] MEDS ORDERED: EPOETIN ALFA-EPBX 10,000 UNIT/ML VIAL IV PRN (12:03)
[2020-07-28] MEDS: cefTRIAXone 1,000 MG in SYRINGE 1 EACH IV SCH (15:57)
[2020-07-28] MEDS: TIMOLOL 0.5% OPH SOLN 5 ML BOTTLE BOTH EYES SCH (21:58)
[2020-07-29] MEDS ORDERED: INSULIN REGULAR 100 UNIT/ML SUBCUT ONE (00:58)
[2020-07-29] MEDS: traMADol 50 MG TABLET PO PRN (01:59)
[2020-07-29] MEDS: PREGABALIN 25 MG CAPSULE PO SCH ×2 (09:25→21:32)
[2020-07-29] MEDS: allopurinoL 300 MG TABLET PO SCH (09:25)
[2020-07-29] MEDS: DILTIAZEM CD 120 MG CAPSULE PO SCH (09:25)
[2020-07-29] MEDS: SULFAMETHOX/TRIMETHOPRIM 800-160 MG TABLET PO SCH (09:25)
[2020-07-29] MEDS: CHOLECALCIFEROL 1,000 UNIT TABLET PO SCH (09:26)
[2020-07-29] MEDS: ASCORBIC ACID 500 MG TABLET PO SCH (09:26)
[2020-07-29] MEDS: DEXAMETHASONE 4 MG TABLET PO SCH (09:26)
[2020-07-29] MEDS: LEVOTHYROXINE 75 MCG TABLET PO SCH (09:26)
[2020-07-29] MEDS: APIXABAN 2.5 MG TABLET PO SCH ×2 (09:27→21:32)
[2020-07-29] MEDS: ATORVASTATIN 40 MG TABLET PO SCH (09:27)
[2020-07-29] MEDS: ASPIRIN EC 81 MG TABLET PO SCH (09:27)
[2020-07-29] MEDS: INSULIN REGULAR 100 UNIT/ML SUBCUT SCH ×4 (09:27→21:32)
[2020-07-29] MEDS: cefTRIAXone 1,000 MG in SYRINGE 1 EACH IV SCH (16:36)
[2020-07-29] MEDS: LACTULOSE 20 GM/30 ML UDCUP PO PRN (21:32)
[2020-07-29] MEDS: TIMOLOL 0.5% OPH SOLN 5 ML BOTTLE BOTH EYES SCH (21:33)
[2020-07-30] MEDS: INSULIN REGULAR 100 UNIT/ML SUBCUT SCH ×3 (07:45→17:58)
[2020-07-30] MEDS: PREGABALIN 25 MG CAPSULE PO SCH (08:21)
[2020-07-30] MEDS: ATORVASTATIN 40 MG TABLET PO SCH (08:21)
[2020-07-30] MEDS: LEVOTHYROXINE 75 MCG TABLET PO SCH (08:21)
[2020-07-30] MEDS: ASPIRIN EC 81 MG TABLET PO SCH (08:21)
[2020-07-30] MEDS: DILTIAZEM CD 120 MG CAPSULE PO SCH (08:21)
[2020-07-30] MEDS: DEXAMETHASONE 4 MG TABLET PO SCH (08:21)
[2020-07-30] MEDS: APIXABAN 2.5 MG TABLET PO SCH (08:21)
[2020-07-30] MEDS: SULFAMETHOX/TRIMETHOPRIM 800-160 MG TABLET PO SCH (08:21)
[2020-07-30] MEDS: ASCORBIC ACID 500 MG TABLET PO SCH (08:22)
[2020-07-30] MEDS: allopurinoL 300 MG TABLET PO SCH (08:22)
[2020-07-30] MEDS: CHOLECALCIFEROL 1,000 UNIT TABLET PO SCH (08:22)
[2020-07-30] MEDS: cefTRIAXone 1,000 MG in SYRINGE 1 EACH IV SCH ×2 (15:04→15:29)
[2020-07-30] MEDS: traMADol 50 MG TABLET PO PRN (17:16)
[2020-07-30 17:56] VITALS: BP 106/53
== END 2020-07-30 18:46 | disposition hospice, home (50) | DRG 177 ==
LOC: EDUNIT# → EDBD → N.ED 14:16 → SUATTDRO 16:13 → N.EDINP 16:13 → N.2E 20:12
PROVIDERS: ADMIT Internal Medicine; ATTEND Family Medicine